=== PATIENT | male | born 1970 ===

== ENCOUNTER 2017-01-07 07:33 | Day surgery (SDC) | payer MEDICARE ==
[2017-01-04 14:29] VITALS: BMI 45.1
[2017-01-07 08:00] LABS: ADD MANUAL DIFF? NO
[2017-01-07 08:05] LABS: BASO # 0.01 K/mm3 (0.0-2.0); BASO % 0.2 % (0.0-3.0); EOS # 0.1 (0.0-0.7); GRAN # 3.27 (1.4-6.5); HEMATOCRIT 30.7 % (42.0-52.0); LYMPH # 1.1 (1.2-3.4); LYMPH % 22.5 % (22.0-35.0); MEAN CORPUSCULAR HEMOGLOBIN 27.5 pg (25.0-35.0); MEAN CORPUSCULAR HGB CONC 31.3 g/dl (31.0-37.0); MEAN PLATELET VOLUME 9.7 fl (7.0-11.0); MONO # 0.5 (0.1-0.6); MONO % 10.3 % (1.0-6.0); PLATELET COUNT 135 10^3/uL (120.0-450.0); RED CELL DISTRIBUTION WIDTH 16.6 % (11.5-14.5)
--- NOTE | 2017-01-07 08:10 | HP ---
REASON FOR ADMISSION: Left and right heart catheterization, reason for cardiac catheterization, obst ructive sleep apnea, pulmonary hypertension, chest pain. BRIEF CLINICAL HISTORY: This is a 46-year-old male, morbidly obese, with past medical history signif icant for hypertension, COPD, obstructive sleep apnea, pulmonary hypertension, RVSP 64 mmHg, referred by Dr. Dino Rowell for right heart catheterization. The patient complained of dyspnea on exerti on. No definite chest pain, but complained of heaviness in the chest and dyspnea on exertion. PAST MEDICAL HISTORY: Significant for obesity, hypertension, COPD, obstructive sleep apnea. PAST SURGICAL HISTORY: Status post appendectomy. SOCIAL HISTORY: Denies any smoking. Denies any history of alcohol abuse. CURRENT MEDICATIONS: The patient is taking at home simvastatin 20 mg daily, Renagel, polyethylene gl ycol, omeprazole, mag oxide, losartan, Lopid, insulin, Lasix, carvedilol, aspirin. Previous workup as follows: The patient had echocardiography on 08/16/[address] Kennedy. The ri ght ventricle was moderately dilated because of mildly hypertrophy. RV systolic function is mildly r educed, mild mitral regurgitation, moderate pulmonary hypertension, mild concentric LVH, LV systolic function mildly impaired, flattening of the septum consistent with RV pressure volume overload, RV sy stolic pressures recorded as 64, and ejection fraction calculated at 45%. REVIEW OF SYSTEMS: As per HPI. PHYSICAL EXAMINATION: VITAL SIGNS: Temperature afebrile, heart rate 80, height of the patient 5 feet 7 inches, weight of t he patient is 282, body mass index 44 kg/m2. HEENT: PERRLA. Extraocular muscles intact. NECK: Supple. No carotid bruits. No thyromegaly. CHEST: Clear to auscultation. HEART: S1, S2 regular. ABDOMEN: Soft. EXTREMITIES: Clubbing and cyanosis negative. Last blood workup in the computer was 11/05/2016, shows WBC 4.5, hemoglobin 10.4, hematocrit 34.1 and platelet count 157. Chemistry shows sodium 140, potassium 6.1, chloride 105, carbon dioxide 30, anio n gap of 11, BUN 656, creatinine 3.7. IMPRESSION: Chronic renal insufficiency, diabetes, hypertension, hyperlipidemia, obstructive sleep a pnea, pulmonary hypertension, elevated pressure right side, mildly decreased left ventricular functio n, ejection fraction 45%, severe dilated right ventricular, pulmonary pressure ____ systolic function , left ventricle mildly impaired, flattening ____ consistent with right ventricular pressure volume o verload, RVSP 64, moderate pulmonary hypertension, moderate tricuspid regurgitation, obstructive slee p apnea, hypertension. RECOMMENDATION: We will do cardiac catheterization. Will use minimal dye, hydrate. Further recomme ndation after the cardiac catheterization. Will do left and right heart catheterization. The patient did not go for a stress test because it may be inconclusive because of obesity and pulmon brenden hypertension and patient complains of shortness of breath, dyspnea on exertion, referred for righ t heart catheterization ____ left heart catheterization also was suggested and will use minimal dye. Thank you, Dr. Rowell, for providing the opportunity in taking care of this patient. Will follow with you. Lisa Minor MD cc:Dino Rowell MD; Adrian Lang MD 305 TT: 01/04/2017 21:46:38 rn
[2017-01-07 08:14] LABS: INR 1.08 (0.93-1.08); PARTIAL THROMBOPLASTIN TIME 27.1 Seconds (23.7-30.8)
[2017-01-07 08:32] VITALS: RESP 18
[2017-01-07 08:47] LABS: POTASSIUM 5.7 mmol/L (3.6-5.0)
[2017-01-07] MEDS ORDERED: Sod Polystyrene Sulf 15 gm/60 ml Oral Susp PO ONE (08:57)
[2017-01-07] MEDS ORDERED: Sodium Bicarbonate (8.4%) 50 Meq Syringe ONE ×2 (09:10→09:24)
[2017-01-07] MEDS ORDERED: Iodixanol 320 MG/ML 200 ML BOTTLE IV ONE (10:20)
[2017-01-07] MEDS ORDERED: Midazolam 2 MG/2 ML VIAL ONE (10:20)
[2017-01-07] MEDS ORDERED: Lidocaine 2% Inj (20ml) ONE (10:20)
[2017-01-07] MEDS ORDERED: Iohexol 350mgl/ml 50 ML ONE (10:21)
[2017-01-07] MEDS ORDERED: SODIUM CHLORIDE 0.45% IV SCH (12:00)
[2017-01-07] MEDS ORDERED: SODIUM BICARBONATE IV SCH (12:00)
[2017-01-07 12:03] VITALS: TEMP 98.1; O2SAT 99
[2017-01-07 15:52] VITALS: PULSE 67
[2017-01-07 16:28] LABS: CALCIUM 7.6 mg/dL (8.4-10.5); POTASSIUM 5.1 mmol/L (3.6-5.0)
[2017-01-07 18:13] VITALS: BP 156/70
--- NOTE | 2017-01-07 18:27 | CARD ---
APPROVED REPORT Procedure(s) performed: Complete Heart Catheterization HISTORY The patient is a 46 year-old male with a history of : previous PCI (The PCI date was ), hypertension , dyslipidemia , cerebrovascular disease, COPD, KARON, CKD Stage III-IV. reffered for RHC b/ c of so much comrbiditied complete Heart Cath done.. INDICATION The indication(s) include : dyspnea. CASE TECHNIQUE The patient was brought electively to the Cardiac Catheterization Laboratory in a fasting state and was prepped and draped in a sterile manner. The right femoral groin was infiltrated with 2% Lidocaine subcutaneous anesthesia. A 6 Fr sheath sheath was inserted into the right femoral artery without difficulty. Coronary angiography was performed using coronary diagnostic catheters. The left coronary system was accessed and visualized with a Diagnostic , JL4.0 , % FR catheter. The right coronary system was accessed and visualized with a Diagnostic , JR 4.0, 5Fr catheter. The left ventricle was accessed and visualized with a Pig tail catheter. Left ventricular/Aortic Valve gradient assessed on pullback. Pre-demployment femoral angiogram was performed . The patient tolerated the procedure well and there were no complications associated with the procedure. Vessel Analysis The patient's coronary anatomy is right dominant. The left main coronary artery is a large size vessel with diffuse calcification noted throughout this vessel and without significant stenosis. There is a 10-20% stenosis in the distal segment. The left main trifurcates to the left anterior descending, circumflex, and ramus. The left anterior descending artery is a medium size vessel with diffuse calcification noted throughout this vessel and with significant stenosis. Patent stent in mid segment There is a 70% stenosis in the mid segment. Distal to stent The first diagonal branch is a small size vessel with diffuse calcification noted throughout this vessel and without significant stenosis. The circumflex artery is a small size vessel with diffuse calcification noted throughout this vessel and without significant stenosis. The ramus intermedius artery is a medium size vessel with diffuse calcification noted throughout this vessel and with significant stenosis. There is a 70% stenosis in the proximal segment. The right coronary artery is a large size vessel with diffuse calcification noted throughout this vessel and without significant stenosis. The right posterior descending artery is a medium size vessel with diffuse calcification noted throughout this vessel and without significant stenosis. Left Ventricle The left ventricle is Mildly enlarged in size with Mildly decreased contractility. Ischemic cardiomyopathy. The left ventricular ejection fraction is estimated to be 45-50%. The left ventricular end diastolic pressure is 20-25 mmHg. There was no gradient across the aortic valve upon pullback. Right Heart Cath Findings The Right Atrial Pressure is 20 mmHg. The Right Ventricular Pressure is 85/20 mmHg. The Pulmonary Artery Pressure is 90/37 mmHg. mean of 50 The Pulmonary Catheter Wedge Pressure is 20-22 mmHg. PVR 3.5 Antoine Wood units. The cardiac output and index were assessed using thermo dilution. The Cardiac Output is 8.04 L/min. The Cardiac index is 3.42 L/min/m2. Conclusion Two Vessel Moderate Diz Mid LAD and Prox Ramus -70% stenoses. Mildly decreased LV Fx. EF-45-50%, EDP-20-25 mmof Hg. RHC:RA-20, RV85/20: PA-90/37 mean of 50;PCW-20-22. CO-8.03, CI-3.42: PVR-35 Antoine unit CKD Stage III-IV Morbid Obesity, T2 DM, HTN, COPD, KARON. only 25 cc Contast used Recommendations Aggressive Medical TherapyCardiac Risk Reduction Program Weight Loss Reduction Program IV HCO3 hydration. Repeat SMA-7 before goes home and in one week. F/u in one week CC; DRS. Lang/ Nadeem/ Yen
== END 2017-01-07 18:15 | disposition home or self-care (01) ==
LOC: CATH 07:33
PROVIDERS: ATTEND Internal Medicine Cardiovascular Disease
DX: I25.10 Atherosclerotic heart disease of native coronary artery without angina pectoris (principal); I25.5 Ischemic cardiomyopathy; I12.9 Hypertensive chronic kidney disease with stage 1 through stage 4 chronic kidney disease, or unspecified chronic kidney disease; N18.4 Chronic kidney disease, stage 4 (severe); E11.22 Type 2 diabetes mellitus with diabetic chronic kidney disease; G47.33 Obstructive sleep apnea (adult) (pediatric); J44.9 Chronic obstructive pulmonary disease, unspecified; E66.01 Morbid (severe) obesity due to excess calories; Z68.42 Body mass index [BMI] 45.0-49.9, adult; I27.2 Other secondary pulmonary hypertension; E78.5 Hyperlipidemia, unspecified; I07.1 Rheumatic tricuspid insufficiency; I67.9 Cerebrovascular disease, unspecified; Z79.4 Long term (current) use of insulin
CPT/HCPCS: 36415; 80048; 80061; 85025; 85610; 85730; 86850; 86900; 93460; 99152; 99153; C1760 ×2; C1769; C1894; C2629; J1644; J1940 ×2; J2250; J3010; J7030 ×2; Q9967

== ENCOUNTER 2017-01-16 12:10 | Inpatient (IN) | payer MEDICARE, OTHER ==
[2017-01-16 12:11] VITALS: BMI 45.1
[2017-01-16 13:12] LABS: ADD MANUAL DIFF? NO
[2017-01-16 13:17] LABS: ARTERIAL BLOOD GAS HCO3 30.6 mmol/L (21-28); BASO # 0.01 K/mm3 (0.0-2.0); BASO % 0.1 % (0.0-3.0); EOS # 0.1 (0.0-0.7); EOS % 1.2 % (1.5-5.0); GRAN # 5.76 (1.4-6.5); GRAN % 84.3 % (50.0-68.0); HEMATOCRIT 29.7 % (42.0-52.0); LYMPH # 0.7 (1.2-3.4); MEAN CELL VOLUME 88.7 fL (80.0-105.0); MEAN CORPUSCULAR HEMOGLOBIN 28.1 pg (25.0-35.0); MEAN CORPUSCULAR HGB CONC 31.6 g/dl (31.0-37.0); MEAN PLATELET VOLUME 10.1 fl (7.0-11.0); MONO # 0.3 (0.1-0.6); MONO % 4.4 % (1.0-6.0); PLATELET COUNT 160 10^3/uL (120.0-450.0); RED CELL DISTRIBUTION WIDTH 15.9 % (11.5-14.5); WHITE BLOOD COUNT 6.8 10^3/ul (4.5-11.0)
[2017-01-16 13:24] LABS: ARTERIAL BLOOD GAS PH 7.19 (7.35-7.45)
--- NOTE | 2017-01-16 13:25 | ED PDOC ---
Arrival/HPI - History of Present Illness Time/Duration: Prior to Arrival, 4-6 hours (acute worsening), > month (chronic) Symptom Course: Worsening Severity Level: Moderate Activities at Onset: Rest, Light - General Chief Complaint: Shortness Of Breath Time Seen by Provider: 01/16/17 12:59 - History of Present Illness Narrative History of Present Illness (Text): 01/16/17 13:19 This is a 46 year old male with a PMH significant for DM, HTN, CKD, CAD, KARON presenting for SOB x 1 year that became acutely worse today. The patient states that he has noticed SOB for thepast year, but this morning he found it hard to carry out ADLs 2/2 to the shortness of breath. The patient has a known history of CAD (s/p cardiac cath 01/07/[address] Minor). The patient reports no cough. He is able to only take a few steps before becoming short of breath. The patient reports abdominal pain that is consistent with his baseline as well. The patient denies fever, chills, chest pain, cough, sputum, wheezing, N/ V/D/C, changes in bowel/bladder, and extremity paresthesias. PMH: DM, HTN, CKD, CAD, KARON Surg: Open Appendectomy Allergy: NKDA Social: Denies tobacco/EtOH/illicit drugs PMD: Dr. Lang Natural Developer: Dr. Rowell ([facility]) Past Medical History - Provider Review Nursing Documentation Reviewed: Yes - Travel History Have you recently traveled outside [place] w/in the past 3 mons?: No - Infectious Disease Hx of Infectious Diseases: None - Tetanus Immunization Tetanus Immunization: Unknown - Cardiac Hx Hypertension: Yes Hx Pacemaker: No - Pulmonary Hx Respiratory Disorders: Yes Hx Sleep Apnea: Yes Other/Comment: Fluid in lungs - Neurological Hx Paralysis: No - HEENT Hx HEENT Disorder: Yes (USES GLASSES) - Renal Hx Renal Disorder: Yes Hx Renal Failure: Yes - Endocrine/Metabolic Hx Endocrine Disorders: Yes Hx Diabetes Mellitus Type 1: Yes - Hematological/Oncological Hx Blood Transfusions: No Hx Blood Transfusion Reaction: No - Integumentary Hx Dermatological Disorder: No - Musculoskeletal/Rheumatological Hx Musculoskeletal Disorders: No - Gastrointestinal Hx Gastrointestinal Disorders: Yes Hx Gastroesophageal Reflux: Yes - Genitourinary/Gynecological Hx Genitourinary Disorders: No - Psychiatric Hx Emotional Abuse: No Hx Physical Abuse: No Hx Substance Use: No - Surgical History Hx Appendectomy: Yes Hx Coronary Stent: Yes - Anesthesia Hx Anesthesia Reactions: No Hx Malignant Hyperthermia: No - Suicidal Assessment Feels Threatened In Home Enviroment: No - Patient History Narrative Patient History: This is a 46 year old male with a PMH significant for DM, HTN, CKD, CAD, KARON ( Cristóbal Chan) Family/Social History - Physician Review Nursing Documentation Reviewed: Yes Family/Social History: No Known Family HX Smoking Status: Never Smoked Hx Alcohol Use: No Hx Substance Use: No Allergies/Home Meds Allergies/Adverse Reactions: Allergies No Known Allergies Allergy (Verified 01/16/17 12:36) Home Medications: Home Meds Medication Instructions Recorded Confirmed Carvedilol [Coreg] 12.5 mg PO BID 08/14/16 01/16/17 Ferrous Sulfate [Iron] 325 mg PO QAM 08/14/16 01/16/17 Omeprazole 40 mg PO QAM 08/14/16 01/16/17 Lopid 600 mg PO BID 10/02/16 01/07/17 Losartan [Cozaar] 25 mg PO QAM 10/02/16 01/16/17 Simvastatin [Zocor] 20 mg PO QPM 10/02/16 01/07/17 Aspirin [Ecotrin] 81 mg PO QAM 11/05/16 01/07/17 Calcitriol [Rocaltrol] 0.25 mcg PO QAM 11/05/16 01/16/17 Insulin Detemir [Levemir] 43 units SC HS PRN 11/05/16 01/07/17 Magnesium Oxide [Mag-Ox] 400 mg PO QAM 11/05/16 01/16/17 Polyethylene Glycol 3350 [Miralax] 17 gm PO BID PRN 01/04/17 01/16/17 ARIPiprazole [Abilify] 5 mg PO DAILY 01/16/17 01/16/17 hydrALAZINE [hydralazine 25 mg PO TID 01/16/17 01/16/17 Hydrochloride] Review of Systems - Physician Review All systems were reviewed & negative as marked: Yes - Review of Systems Constitutional: absent: Fatigue, Fevers Eyes: absent: Vision Changes, Photophobia ENT: absent: Hearing Changes, Tinnitus Respiratory: SOB. absent: Cough, Sputum, Wheezing Cardiovascular: Edema. absent: Chest Pain, Palpitations Gastrointestinal: Abdominal Pain. absent: Constipation, Diarrhea, Nausea, Vomiting Genitourinary Male: absent: Dysuria, Frequency Musculoskeletal: absent: Arthralgias, Back Pain Skin: absent: Rash, Pruritis Neurological: absent: Headache, Dizziness Endocrine: absent: Diaphoresis, Polyuria Hemo/Lymphatic: absent: Adenopathy Psychiatric: absent: Anxiety Physical Exam Vital Signs Reviewed: Yes Temperature: Afebrile Blood Pressure: Normal Pulse: Regular Respiratory Rate: Tachypneic Appearance: Positive for: Ill-Appearing, Uncomfortable Pain Distress: None Mental Status: Positive for: Alert and Oriented X 3 - Systems Exam Head: Present: Atraumatic, Normocephalic Pupils: Present: PERRL Extroacular Muscles: Present: EOMI Conjunctiva: Present: Normal Mouth: Present: Moist Mucous Membranes. No: Drooling Nose (External): Present: Atraumatic. No: Abrasion Neck: Present: Normal Range of Motion. No: Meningeal Signs, JVD Respiratory/Chest: Present: Respiratory Distress, Decreased Breath Sounds ( Right lung mid a low lung hopkins), Rales (left lung base (end inspiratory)), Tachypneic. No: Clear to Auscultation, Good Air Exchange, Accessory Muscle Use , Rhonchi Cardiovascular: Present: Regular Rate and Rhythm, Normal S1, S2. No: Murmurs Abdomen: Present: Tenderness (midline tenderness), Distention, Normal Bowel Sounds, Peritoneal Signs, Hernias (midline ventral hernia), Scars (Midline s/p open appendectomy), Other (gavidly obese). No: Rebound, Guarding, McBurney's Point Tender, Rovsing's Sign Present Back: Present: Normal Inspection. No: Decubitus Ulcer Upper Extremity: Present: Normal Inspection, Edema (trace edmea in forearms). No: Cyanosis Lower Extremity: Present: Normal Inspection, Edema (2+ pitting below knee, 1+ above knee in thigh ), NORMAL PULSES, Normal ROM, Neurovascularly Intact. No: CALF TENDERNESS, Cyanosis, Jessica's Sign, Tenderness, Swelling, Erythema, Deformity, Temperature Abnormalties Neurological: Present: GCS=15, CN II-XII Intact, Speech Normal Skin: Present: Warm, Dry, Normal Color. No: Rashes Psychiatric: Present: Alert, Oriented x 3 Vital Signs Temp Pulse Resp BP Pulse Ox 01/16/17 18:38 60 18 133/82 100 01/16/17 16:30 66 18 142/85 98 01/16/17 15:00 69 18 153/93 H 98 01/16/17 13:25 18 167/66 H 98 01/16/17 12:31 98.2 F 71 18 144/78 100 Medical Decision Making - Lab Interpretations I have reviewed the lab results: Yes Interpretation: Abnormal lab values - RAD Interpretation Community Music Therapist: ED Physician, Radiologist - EKG Interpretation Interpreted by ED Physician: Yes Type: 12 lead EKG ED Course and Treatment: 01/16/17 13:29 Impression: This is a 46 year old male with a PMH significant for DM, HTN, CKD, CAD, KARON presenting for SOB x 1 year that became acutely worse today. The patient appears clinical stable although tachypneic and visibly short of breath. Differential: CHF Exacerbation COPD Pneumonia Plan: Septic Workup Labs CXR EKG Blood Cultures Urine Culture Lasix 40mg IV Rocephin 1g x 1 Azithromycin 500mg x 1 ABG Bi-PAP Prior Visits: 10/02/16- Edema 09/09/16- CHF Exacerbation 08/14/16- CHF 02/07/16- Depression Progress Notes: Patient seen and examined at the bedside. Patient tachypneic. Patient sating well on 4L nasal cannula. ABG revealed retention of CO2. Patient tolerating Bi -PAP well. Patient has elevated BNP on lab examination. The patient has a large right sided effusion/infiltrate. The patient was empirically started on rocephin and azithromycin. 01/16/17 18:32 Dr. Ryan called. Case discussed in detail over the phone. Dr. Ryan accepted admission to remote telemetry as he is covering for Dr. Lang. The patient was informed of the admission plan and is agreeable with admission at this time. (Cristóbal Chan) Seen and examined with resident. 46 y/o M p/w shortness of breath. Decreased breath sounds diffusely especially R lung base. (Arvind Colbert) - Lab Interpretations Lab Results: 01/16/17 13:00 01/16/17 13:00 Lab Results 01/16/17 14:13: pCO2 62 H, pO2 95.0, HCO3 27.8, ABG pH 7.26 L, ABG Total CO2 29.7 H, ABG O2 Saturation 98.1 H, ABG O2 Content 12.4 L, ABG Base Excess 0.1, ABG Hemoglobin 9.1 L, ABG Carboxyhemoglobin 1.9 H, POC ABG HHb (Measured) 1.9, ABG Methemoglobin 0.2, ABG O2 Capacity 12.6 L, Hgb O2 Saturation 96.0, FiO2 32.0 01/16/17 13:20: Urine Color Yellow, Urine Appearance Sl cloudy, Urine pH 6.5, Ur Specific Laurel 1.020, Urine Protein >=300 H, Urine Glucose (UA) 250 H, Urine Ketones Negative, Urine Blood Small H, Urine Nitrate Negative, Urine Bilirubin Negative, Urine Urobilinogen 0.2, Ur Leukocyte Esterase Negative, Urine RBC 1 - 3, Urine WBC 1 - 3, Ur Epithelial Cells 3 - 4, Urine Bacteria Trace 01/16/17 13:00: WBC 6.8 D, RBC 3.35 L, Hgb 9.4 L, Hct 29.7 L, MCV 88.7, MCH 28.1, MCHC 31.6, RDW 15.9 H, Plt Count 160, MPV 10.1, Gran % 84.3 H, Lymph % ( Auto) 10.0 L, Spencer % (Auto) 4.4, Eos % (Auto) 1.2 L, Baso % (Auto) 0.1, Gran # 5.76, Lymph # 0.7 L, Spencer # 0.3, Eos # 0.1, Baso # 0.01, PT 11.7, INR 1.08, APTT 25.3, pCO2 80 H*, pO2 49.0 L, HCO3 30.6 H, ABG pH 7.19 L*, ABG Total CO2 33.1 H, ABG O2 Saturation 84.7 L, ABG Base Excess 0.1, ABG Potassium 5.1, Glucose 149 H, Lactate 1.2, FiO2 21.0, Sodium 139.0, Potassium 5.3 H, Chloride 107.0, Carbon Dioxide 30, Anion Gap 11, BUN 44 H, Creatinine 4.0 H, Est GFR ( Amer) 20, Est GFR (Non-Af Amer) 16, Random Glucose 132 H, Calcium 8.0 L , Phosphorus 4.6 H, Magnesium 1.8, Total Bilirubin 0.5, AST 25, ALT 26, Alkaline Phosphatase 75, Troponin I 0.02 D, NT-Pro-B Natriuret Pep 75674 H, Total Protein 6.1, Albumin 3.2, Globulin 2.9, Albumin/Globulin Ratio 1.1, Arterial Blood Potassium 5.1 - RAD Interpretation Narrative RAD Interpretations (Text): 01/16/17 16:43 FINDINGS: LUNGS: There is a diffuse infiltrate and vascular congestion. Findings are most consistent with pulmonary edema. There is elevation of the right hemidiaphragm PLEURA: No significant pleural effusion identified, no pneumothorax apparent. CARDIOVASCULAR: Mild cardiomegaly OSSEOUS STRUCTURES: No significant abnormalities. VISUALIZED UPPER ABDOMEN: Normal. OTHER FINDINGS: None. IMPRESSION: There is a diffuse infiltrate and vascular congestion. Findings are most consistent with pulmonary edema. There is elevation of the right hemidiaphragm. (Cristóbal Chan) Radiology Orders: 01/16/17 13:03 CHEST PORTABLE [RAD] Stat - EKG Interpretation EKG Interpretation (Text): 01/16/17 16:45 NSR Non-specific t wave changes regular rate (Cristóbal Chan) - Medication Orders Current Medication Orders: Discontinued Medications Furosemide (Lasix) 40 mg IVP STAT STA Stop: 01/16/17 13:07 Last Admin: 01/16/17 13:25 Dose: 40 MG MAR Blood Pressure Document 01/16/17 13:25 [facility] (Rec: 01/16/17 13:25 [facility] [id number]) Blood Pressure Blood Pressure (100/60-150/90) 167/66 IVP Administration Document 01/16/17 13:25 [facility] (Rec: 01/16/17 13:25 [facility] [id number]) Charges for Administration # of IVP Administrations 1 Azithromycin (Zithromax 500mg In Ns) 250 mls @ 167 mls/hr IVPB STAT STA PRN Reason: Protocol Stop: 01/16/17 17:47 Last Admin: 01/16/17 17:04 Dose: 167 MLS/HR eMAR Start Stop Document 01/16/17 17:04 JOL (Rec: 01/16/17 17:04 JOL [email or web address]) Intravenous Solution Start Date 01/16/17 Start Time 17:04 End Date 01/16/17 End time 18:34 Total Infusion Time 90 Ceftriaxone Sodium (Rocephin 1 Gram Ivpb) 100 mls @ 200 mls/hr IVPB STAT STA PRN Reason: Protocol Stop: 01/16/17 16:47 Last Admin: 01/16/17 16:38 Dose: 200 MLS/HR eMAR Start Stop Document 01/16/17 16:38 PATRICK (Rec: 01/16/17 16:38 PATRICK [email or web address]) Intravenous Solution Start Date 01/16/17 Start Time 16:38 End Date 01/16/17 End time 17:08 Total Infusion Time 30 Disposition/Present on Arrival - Present on Arrival Any Indicators Present on Arrival: No History of DVT/PE: No History of Uncontrolled Diabetes: No Urinary Catheter: No History of Decub. Ulcer: No History Surgical Site Infection Following: None - Disposition Have Diagnosis and Disposition been Completed?: Yes Disposition Time: 18:00 Patient Plan: Admission - Disposition Diagnosis: CHF exacerbation, Shortness of breath Patient Problems: Current Active Problems Problem Status Diagnosed CHF exacerbation Acute Congestive heart failure Acute Diabetic nephropathy Acute Shortness of breath Acute Condition: FAIR
[2017-01-16 13:27] LABS: INR 1.08 (0.93-1.08); PARTIAL THROMBOPLASTIN TIME 25.3 Seconds (23.7-30.8)
[2017-01-16 13:28] LABS: ALB/GLOB RATIO 1.1 (1.1-1.8); BILIRUBIN,TOTAL 0.5 mg/dL (0.2-1.3); MAGNESIUM 1.8 mg/dL (1.7-2.2); PHOSPHOROUS 4.6 mg/dL (2.5-4.5); POTASSIUM 5.3 mmol/L (3.6-5.0); TOTAL PROTEIN 6.1 g/dL (5.8-8.3)
[2017-01-16 13:39] LABS: TROPONIN I 0.02 ng/mL
--- NOTE | 2017-01-16 14:01 | RAD ---
HISTORY: Sepsis Patient COMPARISON: 11/23/2016 FINDINGS: LUNGS: There is a diffuse infiltrate and vascular congestion. Findings are most consistent with pulmonary edema. There is elevation of the right hemidiaphragm PLEURA: No significant pleural effusion identified, no pneumothorax apparent. CARDIOVASCULAR: Mild cardiomegaly OSSEOUS STRUCTURES: No significant abnormalities. VISUALIZED UPPER ABDOMEN: Normal. OTHER FINDINGS: None. IMPRESSION: There is a diffuse infiltrate and vascular congestion. Findings are most consistent with pulmonary edema. There is elevation of the right hemidiaphragm
[2017-01-16 14:16] LABS: ARTERIAL BLOOD GAS HCO3 27.8 mmol/L (21-28); ARTERIAL BLOOD GAS O2 CAPACITY 12.6 mL/dl (16-24); ARTERIAL BLOOD GAS O2 CONTENT 12.4 ML/dl (15-23); ARTERIAL BLOOD GAS PH 7.26 (7.35-7.45); CARBOXYHEMOGLOBIN 1.9 % (0.5-1.5); HHB 1.9 % (0-5); METHEMOGLOBIN 0.2 % (0.0-3.0)
[2017-01-16 15:01] LABS: PH,URINE 6.5 (4.7-8.0); URINE APPEARANCE SL CLOUDY (CLEAR); URINE BILIRUBIN NEGATIVE (NEGATIVE); URINE BLOOD SMALL (NEGATIVE); URINE COLOR YELLOW (YELLOW); URINE GLUCOSE (UA) 250 mg/dL (NEGATIVE); URINE KETONE NEGATIVE (NEGATIVE); URINE LEUKOCYTE ESTERASE NEGATIVE Leu/uL (NEGATIVE); URINE PROTEIN >=300 mg/dL (<30 mg/dL); URINE UROBILINOGEN 0.2 E.U./dL (<1 E.U./dL)
[2017-01-16 15:14] LABS: URINE BACTERIA TRACE (NEG)
[2017-01-16] MEDS ORDERED: cefTRIAXone 1 gm 100 ML IVPB STA (16:18)
[2017-01-16] MEDS ORDERED: Azithromycin 500MG/NS 250ml 250 ML IVPB STA (16:18)
--- NOTE | 2017-01-16 17:24 | CARD ---
APPROVED REPORT EKG Measurement Heart [id number] <Conclusion> Normal sinus rhythm Low voltage QRS Nonspecific T wave abnormality Abnormal ECG
[2017-01-16] MEDS ORDERED: Sod Polystyrene Sulf 15 gm/60 ml Oral Susp PO STA (19:15)
[2017-01-16] MEDS ORDERED: POLYETHYLENE GLYCOL 3350 17 GM/Dose PACKET PO PRN (19:18)
--- NOTE | 2017-01-16 20:27 | CP.PCM.HP ---
History of Present Illness - History of Present Illness History of Present Illness: PGY-1 H&P 46 yo male with PMH of DM, HTN, CKD, CAD, KARON presented with progressively worsening SOB. Patient states that the SOB started about 1 year ago but today he was acutely worse. He states that he felt very weak and was no able to complete his activities of daily living. Patient recently had a cardiac cath on 01/07/17. He states that he is only able to take a few steps before he becomes SOB. He reports dry cough with occasionally has dry heaves. Patient states that takes over the counter medication for constipation and has alternating constipation with diarrhea. He has pain associated with abdominal herniated, the pain is consistent with baseline. He denies fever, chills, chest pain, n/v, urinary symptoms. PMH; DM, HTN, CKD, CAD, KARON PSH; cardiac cath with 2 stents, cataract, burst appendectomy Family hx; mother heart disease, father prostate ca social hx; denies alcohol, smoking, or illicit drug use allergy; NKDA Present on Admission - Present on Admission Any Indicators Present on Admission: No Review of Systems - Constitutional Constitutional: Fatigue. absent: Chills, Fever, Weight Gain, Weight Loss - EENT Eyes: absent: Blurred Vision Nose/Mouth/Throat: absent: Nasal Congestion, Sore Throat - Cardiovascular Cardiovascular: Dyspnea, Edema. absent: Chest Pain - Respiratory Respiratory: Cough (dry ), Dyspnea. absent: Wheezing - Gastrointestinal Gastrointestinal: Abdominal Pain (abd hernia), Constipation, Diarrhea. absent: Nausea, Vomiting - Genitourinary Genitourinary: absent: Change in Urinary Stream, Dysuria - Musculoskeletal Musculoskeletal: Muscle Weakness. absent: Joint Swelling, Numbness, Tingling - Integumentary Integumentary: absent: Rash, Sores - Neurological Neurological: Weakness. absent: Dizziness, Numbness, Headaches, Tingling - Hematologic/Lymphatic Hematologic: absent: Easy Bleeding, Easy Bruising Past Patient History - Infectious Disease Hx of Infectious Diseases: None - Tetanus Immunizations Tetanus Immunization: Unknown - Past Medical History & Family History Past Medical History?: Yes - Past Social History Smoking Status: Never Smoked Alcohol: None Drugs: Denies - CARDIAC Hx Hypertension: Yes Hx Pacemaker: No - PULMONARY Hx Respiratory Disorders: Yes Hx Sleep Apnea: Yes Other/Comment: Fluid in lungs - NEUROLOGICAL Hx Paralysis: No - HEENT Hx HEENT Problems: Yes (USES GLASSES) - RENAL Hx Chronic Kidney Disease: Yes Hx Renal Failure: Yes - ENDOCRINE/METABOLIC Hx Endocrine Disorders: Yes Hx Diabetes Mellitus Type 1: Yes - HEMATOLOGICAL/ONCOLOGICAL Hx Blood Transfusions: No Hx Blood Transfusion Reaction: No - INTEGUMENTARY Hx Dermatological Problems: No - MUSCULOSKELETAL/RHEUMATOLOGICAL Hx Musculoskeletal Disorders: No - GASTROINTESTINAL Hx Gastrointestinal Disorders: Yes Hx Gastroesophageal Reflux: Yes - GENITOURINARY/GYNECOLOGICAL Hx Genitourinary Disorders: No - PSYCHIATRIC Hx Emotional Abuse: No Hx Physical Abuse: No Hx Substance Use: No - SURGICAL HISTORY Hx Appendectomy: Yes Hx Coronary Stent: Yes - ANESTHESIA Hx Anesthesia Reactions: No Hx Malignant Hyperthermia: No Meds Allergies/Adverse Reactions: Allergies Allergy/AdvReac Type Severity Reaction Status Date / Time No Known Allergies Allergy Verified 01/16/17 12:36 Physical Exam - Constitutional Appears: No Acute Distress - Head Exam Head Exam: ATRAUMATIC, NORMOCEPHALIC - Eye Exam Eye Exam: EOMI, Normal appearance - ENT Exam ENT Exam: Mucous Membranes Moist - Respiratory Exam Respiratory Exam: Decreased Breath Sounds, Rhonchi, Respiratory Distress. absent: Wheezes, NORMAL BREATHING PATTERN - Cardiovascular Exam Cardiovascular Exam: REGULAR RHYTHM. absent: Tachycardia, Systolic Murmur - GI/Abdominal Exam GI & Abdominal Exam: Distended, Hernia, Normal Bowel Sounds, Soft. absent: Firm , Guarding, Tenderness - Extremities Exam Additional comments: + pitting edema - Neurological Exam Neurological exam: Alert, Oriented x3 - Skin Skin Exam: Dry, Intact, Normal Color, Warm Results - Vital Signs Recent Vital Signs: Last Vital Signs Temp 98.2 F 01/16/17 12:31 Pulse 60 01/16/17 18:38 Resp 18 01/16/17 18:38 BP 133/82 01/16/17 18:38 Pulse Ox 100 01/16/17 18:38 - Labs Result Diagrams: 01/16/17 13:00 01/16/17 13:00 Assessment & Plan - Assessment and Plan (Free Text) Assessment: 46 yo male with PMH of DM, HTN, CKD, CAD, KARON presented with progressively worsening SOB most likely due to CHF with possible PNE. CXR showed diffuse infiltrates and vascular congestion, pulm edema. Plan: 1. dyspnea - chf vs pne - cont abx ceftriaxone and azithromycin - lasix 40 IV bid - will cont bipap overnight - O2 as needed - echo - cardio consult, Dr. Minor - pulm consult, Dr. Tom 2. hyperkalemia - kayexalate - repeat BMP in AM 3. CKD - appears be baseline - conulted nephro - cont to monitor - cont home med calcitriol 4.HTN - cont home meds coreg, hydralazine, losartan 5. DM - ISSS- low - fingersticks ACHS 6. anemia - cont home med feosol ppx - GI ppx protonix - DVT ppx heparin
[2017-01-16] MEDS: Insulin Reg-LOW-Coverage SC SCH (21:32)
[2017-01-17 07:01] LABS: ADD MANUAL DIFF? NO
[2017-01-17 07:14] LABS: BASO # 0.01 K/mm3 (0.0-2.0); BASO % 0.2 % (0.0-3.0); EOS # 0.1 (0.0-0.7); EOS % 1.7 % (1.5-5.0); GRAN # 2.98 (1.4-6.5); GRAN % 63.7 % (50.0-68.0); HEMATOCRIT 29.6 % (42.0-52.0); LYMPH # 1.2 (1.2-3.4); LYMPH % 24.8 % (22.0-35.0); MEAN CORPUSCULAR HEMOGLOBIN 27.7 pg (25.0-35.0); MEAN CORPUSCULAR HGB CONC 30.7 g/dl (31.0-37.0); MEAN PLATELET VOLUME 10.7 fl (7.0-11.0); MONO # 0.5 (0.1-0.6); MONO % 9.6 % (1.0-6.0); PLATELET COUNT 156 10^3/uL (120.0-450.0); RED CELL DISTRIBUTION WIDTH 16.1 % (11.5-14.5); WHITE BLOOD COUNT 4.7 10^3/ul (4.5-11.0)
[2017-01-17 07:24] LABS: ALB/GLOB RATIO 1.1 (1.1-1.8); BILIRUBIN,TOTAL 0.3 mg/dL (0.2-1.3); CALCIUM 7.6 mg/dL (8.4-10.5); TOTAL PROTEIN 5.8 g/dL (5.8-8.3)
--- NOTE | 2017-01-17 08:32 | CON ---
DATE: 01/17/2017 REASON FOR CONSULTATION: Shortness of breath. REFERRING PHYSICIAN: Dr. Garcia. HISTORY OF PRESENT ILLNESS: The patient is a 46-year-old male with past medical history significant for recurrent congestive heart failure, dilated cardiomyopathy, coronary artery disease, status post multiple cardiac stents, diabetes mellitus, chronic kidney disease, obstructive sleep apnea, who presents to [facility] with increasing shortness of breath at rest and dyspnea on exertion for 1 day. There is no history of cough or sputum production. There is no history of chest pain, coughing up of blood, or chest pain -- made worse with deep respirations. There is no history of temperatures , chills, or infectious exposure. There is no history of night sweats, weight loss, or appetite change prior to the above events. No history of leg or calf pains. No history of syncope or diaphoresis. No history of recent travel or trauma. REVIEW OF SYSTEMS: No history of nausea, vomiting, or diarrhea. No acute urinary symptoms. No new neurological or musculoskeletal complaints. Rest of the review of systems is negative. ALLERGIES: No known allergies. SOCIAL HISTORY: Positive for tobacco, negative for alcohol. FAMILY HISTORY: No inheritable diseases. HOME MEDICATIONS: Include hydralazine, MiraLax, Abilify, Lasix, Cozaar, iron, Coreg, Zocor, Renagel, Levemir, Ecotrin. PHYSICAL EXAMINATION: GENERAL: The patient appears comfortable at rest. He is not short of breath. VITALS: Temperature is 98, pulse 64, respirations 18/20, blood pressure 163/ 86. Oxygen saturation on BiPAP is 100%. HEENT: Normocephalic, atraumatic. Positive JVD. CARDIOVASCULAR: Positive S1, S2. Positive S3 gallop. LUNGS: Crackles at the bases. No rhonchi. No wheezing. EXTREMITIES: Positive for edema. No cyanosis, no clubbing. Calves are nontender to palpation. GASTROINTESTINAL: Abdomen is soft, nontender, nondistended. Bowel sounds are positive. SKIN: No acute rash. NEUROLOGIC EXAMINATION: Limited at the present time. PERTINENT LABORATORY DATA: Chest x-ray was done and reviewed. Pulmonary edema is noted. Arterial blood gas was done on nasal cannula(discussed with the nurse ). Results are: pH 7.26, pCO2 of 62, pO2 of 95. CBC: White count 6.8, hemoglobin 9.4, hematocrit 29.7, platelets of 160. Complete Metabolic Profile: Potassium 5.3, BUN 44, creatinine 4.0, glucose 132, calcium 8.0, phosphorus 4.6, B-type natriuretic peptide 12,200. Rest of the metabolic profile is within normal limits. IMPRESSION: 1. Recurrent congestive heart failure. 2. Dilated cardiomyopathy. 3. Coronary artery disease. 4. Respiratory failure. 5. Obstructive sleep apnea. 6. Chronic kidney disease. PLAN: I did discuss the case with the night nurse at length. I have also discussed the case with the patient at length, and reviewed the chart at length. The patient presents to [facility] with a 1-day history of worsening shortness of breath at rest and dyspnea on exertion. He offers no other pulmonary symptoms. I did review the x-ray as above. The x-ray is consistent with acute pulmonary edema. I have also reviewed the arterial blood gas. A mild respiratory acidosis with quite adequate oxygenation is noted. Again, I did discuss the case and plan with the nurse at length. As a first step, I will try changing the BiPAP to at night and on a p.r.n. basis. I will place the patient on 3 L nasal cannula oxygen this morning. I will obtain an arterial blood gas in 1 hour -- I will be called with those results. The patient does use CPAP at night at home. I have requested that one of his family members bring his CPAP machine in from home. He agrees. Cardiology evaluation with Dr. Minor has been ordered. The patient has been placed on Lasix /afterload reduction. The patient has also been placed on antibiotic therapy. There are no temperatures by history. There is no leukocytosis. The patient is not short of breath at the time of my examination, and feels better this morning. He has clinically improved. Additional pulmonary intervention will be based on the above results, as well as clinical status of the patient. I will discuss the above with Dr. Garcia later this morning. Thank you very much for this pulmonary consultation. Kem Tom MD cc: [id number] TT: 01/17/2017 08:31:28 Confirmation # [id number] Dictation # [id number] jn VINNIE
--- NOTE | 2017-01-17 08:59 | CP.PCM.PN ---
<Kailee Mcgregor - Last Filed: 01/17/17 13:27> Subjective - Date & Time of Evaluation Date of Evaluation: 01/17/17 Time of Evaluation: 08:56 - Subjective Subjective: PGY-1 Medicine progress note Patient seen and examined at bedside. Patient is on 3L nasal cannula. He is short of breath when speaking. He states that his breathing has improved from yesterday. Nurse reports no acute events overnight. Patient denies headache, fever, chills, chest pain, n/v/d/c. He conts to have abd pain 2/2 hernia that is consistent with baseline. Objective - Vital Signs/Intake and Output Vital Signs (last 24 hours): Temp Pulse Resp BP Pulse Ox 98.0 F 61 20 163/86 H 100 01/16/17 23:21 01/17/17 06:00 01/16/17 23:21 01/16/17 23:21 01/16/17 18:38 Intake and Output: 01/17/17 01/17/17 06:59 18:59 Intake Total 420 120 Balance 420 120 - Medications Medications: Current Medications Aripiprazole (Abilify) 5 mg PO DAILY DMITRIY Calcitriol (Rocaltrol) 0.25 mcg PO QAM DMITRIY Carvedilol (Coreg) 12.5 mg PO BID DMITRIY Ferrous Sulfate (Feosol) 324 mg PO QAM DMITRIY Furosemide (Lasix) 40 mg IVP Q12 DMITRIY Last Admin: 01/16/17 21:31 Dose: 40 mg Heparin Sodium (Porcine) (Heparin) 5,000 units SC Q12 DMITRIY PRN Reason: Protocol Last Admin: 01/16/17 21:31 Dose: 5,000 units Hydralazine HCl (Apresoline) 25 mg PO TID DMITRIY Azithromycin (Zithromax 500mg In Ns) 250 mls @ 167 mls/hr IVPB DAILY DMITRIY PRN Reason: Protocol Ceftriaxone Sodium (Rocephin 1 Gram Ivpb) 100 mls @ 100 mls/hr IVPB DAILY DMITRIY PRN Reason: Protocol Insulin Human Regular (Humulin R Low) 0 units SC ACHS DMITRIY PRN Reason: Protocol Last Admin: 01/16/17 21:32 Dose: Not Given Losartan Potassium (Cozaar) 25 mg PO QAM DMITRIY Magnesium Oxide (Mag-Ox) 400 mg PO QAM DMITRIY Pantoprazole Sodium (Protonix Ec Tab) 40 mg PO QAM DMITRIY Polyethylene Glycol (Miralax) 17 gm PO BID PRN PRN Reason: Constipation - Labs Labs: 01/17/17 06:30 01/17/17 06:30 PT 11.7 Seconds (9.9-11.8) 01/16/17 13:00 INR 1.08 (0.93-1.08) 01/16/17 13:00 APTT 25.3 Seconds (23.7-30.8) 01/16/17 13:00 - Constitutional Appears: No Acute Distress - Head Exam Head Exam: ATRAUMATIC, NORMOCEPHALIC - Eye Exam Eye Exam: EOMI, Normal appearance - ENT Exam ENT Exam: Mucous Membranes Dry - Respiratory Exam Respiratory Exam: Decreased Breath Sounds, Rhonchi, Respiratory Distress (mild) - Cardiovascular Exam Cardiovascular Exam: REGULAR RHYTHM. absent: Tachycardia, JVD, Murmur - GI/Abdominal Exam GI & Abdominal Exam: Distended, Soft, Normal Bowel Sounds. absent: Firm, Guarding, Tenderness - Extremities Exam Extremities Exam: absent: Pedal Edema - Neurological Exam Neurological Exam: Alert, Awake, Oriented x3 - Skin Skin Exam: Dry, Intact, Normal Color, Warm Assessment and Plan - Assessment and Plan (Free Text) Assessment: 46 yo male with PMH of DM, HTN, CKD, CAD, KARON presented with progressively worsening SOB most likely due to CHF with possible PNE and respiratory acidosis. CXR showed diffuse infiltrates and vascular congestion, pulm edema. Patient was on bipap overnight. Plan: 1. dyspnea - 2/2 chf, possible PNA - CXR showed diffuse infiltrates and vascular congestion, pulm edema. - cont abx ceftriaxone and azithromycin - increase lasix to 40 IV q8 - valdes to moniotr strict I&O - will cont bipap at night - patient states he will have family bring his cpap from home - patient on O2 3L while not on bipap - echo ordered - cardio consult, Dr. Minor - pulm consult, Dr. Tom 2. respiratory acidosis - on admission ABG showed respiratory acidosis - he was placed on bipap in the ED, repeat ABG was improved - ABG this morning shows worsening of respiratory acidosis - placed back on bipap, - will transfer to tele floor - repeat ABG in AM 3. CKD - appears be baseline - may need dialysis to remove fluid - consulted nephro - cont to monitor - cont home med calcitriol 4. hyperkalemia - kayexalate 1 dose yesterday - repeat improved to 5 - cont to monitor - nephro consulted 5.HTN - cont home meds coreg, hydralazine, losartan 6. DM - ISSS- low - finger sticks ACHS 7. anemia - cont home med feosol - appears at baseline - cont to monitor ppx - GI ppx protonix - DVT ppx heparin <Adrian Lang - Last Filed: 02/22/17 14:10> Objective - Vital Signs/Intake and Output Vital Signs (last 24 hours): Temp Pulse Resp BP Pulse Ox 98.0 F 59 L 18 140/70 97 01/30/17 08:00 01/30/17 08:00 01/30/17 08:00 01/30/17 09:31 01/30/17 08:00 - Labs Labs: 01/30/17 11:20 01/30/17 11:20 PT 11.7 Seconds (9.9-11.8) 01/16/17 13:00 INR 1.08 (0.93-1.08) 01/16/17 13:00 APTT 25.3 Seconds (23.7-30.8) 01/16/17 13:00 Attending/Attestation - Attestation I have personally seen and examined this patient.: Yes I have fully participated in the care of the patient.: Yes I have reviewed all pertinent clinical information, including history, physical exam and plan: Yes Notes (Text): 02/22/17 14:10 Medical record note made by the resident after discussion with my direction and input after the patient was personally seen and examined by me. I have reviewed the chart and agree that the record accurately reflects by personal performance of the history, physical exam, data review, and medical decision-making, in the course for the patient. I have also personally directed the plan of care.
[2017-01-17 09:02] LABS: ARTERIAL BLOOD GAS HCO3 29.9 mmol/L (21-28); ARTERIAL BLOOD GAS O2 CAPACITY 12.7 mL/dl (16-24); ARTERIAL BLOOD GAS O2 CONTENT 12.4 ML/dl (15-23); ARTERIAL BLOOD HGB O2 SAT 94.9 % (95.0-98.0); CARBOXYHEMOGLOBIN 1.7 % (0.5-1.5); HHB 2.3 % (0-5)
[2017-01-17 09:04] LABS: ARTERIAL BLOOD GAS PH 7.17 (7.35-7.45)
[2017-01-17] MEDS: Insulin Reg-LOW-Coverage SC SCH ×4 (10:05→22:10)
[2017-01-17] MEDS: Pantoprazole 40 mg EC Tab PO SCH (10:14)
[2017-01-17] MEDS: Magnesium Oxide 400 mg Tab UD PO SCH (10:14)
[2017-01-17] MEDS: cefTRIAXone 1 gm 100 ML IVPB SCH (10:15)
[2017-01-17] MEDS: Azithromycin 500MG/NS 250ml 250 ML IVPB SCH (10:15)
[2017-01-17 10:47] LABS: ARTERIAL BLOOD GAS HCO3 27.6 mmol/L (21-28); ARTERIAL BLOOD GAS O2 CAPACITY 12.3 mL/dl (16-24); ARTERIAL BLOOD GAS O2 CONTENT 12.3 ML/dl (15-23); ARTERIAL BLOOD GAS PH 7.25 (7.35-7.45); ARTERIAL BLOOD HGB O2 SAT 97.4 % (95.0-98.0); CARBOXYHEMOGLOBIN 2.6 % (0.5-1.5); HHB 0 % (0-5)
[2017-01-17] MEDS ORDERED: metOLazone 5 MG TAB PO STA (12:50)
--- NOTE | 2017-01-17 14:29 | CON ---
DATE: 01/17/2017 The patient is in room 367, bed 2. REASON FOR CONSULTATION: Shortness of breath, history of coronary artery disease, history of congest jose g heart failure, history of severe pulmonary hypertension, chronic obstructive pulmonary disease, o bstructive sleep apnea, obesity. HISTORY OF PRESENT ILLNESS: The patient is a 46-year-old male, known case of severe pulmonary hypert ension, congestive heart failure, coronary artery disease, hypertension, morbid obesity, admitted wit h a history that he was having shortness of breath which gradually got worse and on the day of admiss ion it was markedly increased without any chest pain or palpitation. The patient since admission is feeling better now. The patient known to have also obstructive sleep apnea. PAST MEDICAL HISTORY: Positive for obstructive sleep apnea, COPD, hypertension, morbid obesity, robert re pulmonary hypertension, coronary artery disease, LV dysfunction. ALLERGIES: No known allergies. PERSONAL HISTORY: Positive for tobacco. Denies alcohol intake. FAMILY HISTORY: Not significant. HOME MEDICATIONS: Lasix, Cozaar, Coreg, Zocor, Renagel, Levemir insulin, Ecotrin, hydralazine, Radha ax. PREVIOUS CARDIAC HISTORY: The patient on 08/16/2016 had echocardiogram, which showed right ventricle was moderately dilated with mild hypertrophy, RV systolic function was mildly reduced. Mild mitral regurg, moderate pulmonary hypertension, mild concentric LVH, LV systolic function mildly impaired, f lattening of the septum consistent with RV pressure volume overload, RV systolic pressure with echo w as 64 mmHg. Ejection fraction was 45%. The patient had cardiac catheterization on 01/07/2017, which showed mid LAD 70% stenosis, proximal ramus also 70% stenosis, mildly decreased LV function with eje ction fraction 45-50% . EDP was 20-25 mmHg, right heart catheterization shows RA pressure is 20 mmHg , RV pressure 85/20 mmHg, and PA pressure is 90/37 with a mean of 50 PA pressure. PC wedge was 20-22 . Cardiac output 8.03. Cardiac index 3.42. PVR 35 Wood units. The patient had abnormal kidney fun ction at that time, so angioplasty was not done with the fear the patient will go on dialysis with re nal failure, so it was suggested to consider [employer] of LAD and ramus once patient's kidney status has im proved or patient goes on dialysis. REVIEW OF SYSTEMS: All the systems were reviewed, positive mentioned in the history, others were neg ative. PHYSICAL EXAMINATION: VITAL SIGNS: Blood pressure 129/60, respirations 30, pulse 60. The patient is afebrile. HEENT: Head is normocephalic. Eyes: Pupils normal. Conjunctivae slightly pale. NECK: JVP low. Carotid equal. THORAX: AP diameter normal. LUNGS: Few basilar rales. CARDIOVASCULAR: S1, S2. ABDOMEN: Protuberant, no organomegaly. EXTREMITIES: No clubbing, no cyanosis. LABORATORY DATA: WBC 4.7, hemoglobin 9.1, hematocrit 29.6, platelet 156. Sodium 142, potassium 5.0, BUN 44, creatinine 4.1, calcium 7.6. AST, ALT normal. Albumin, protein normal. NT-pro B-type natr iuretic pep 12,200. Chest x-ray showed cardiomegaly, congestive heart failure changes. EKG showed s inus rhythm, low voltage, nonspecific ST-T changes. DIAGNOSES: Congestive heart failure, obstructive sleep apnea, chronic obstructive pulmonary disease , hypertension, renal failure, morbid obesity, anemia, obstructive sleep apnea, coronary artery disea se, left ventricular dysfunction with left ventricular ejection fraction 45-50% on cardiac catheteriz ation as mentioned above. PLAN: The patient getting hydralazine 25 mg t.i.d., Coreg 12.5 b.i.d., losartan 25 mg daily, ferrous sulfate 324 mg daily, heparin 5000 units q. 12 hours, furosemide 40 mg IV q. 12 hours, Protonix 40 m g daily, Rocephin 1 g IV daily, azithromycin 500 mg IV daily. We also give Zaroxolyn 5 mg p.o. today to help diuresis. We will also add Ecotrin 81 mg daily to therapy. We will check lipid profile. W e will monitor intake and output and we will follow with you. Lisa Lei MD cc: [id number] TT: 01/17/2017 14:28:31 Confirmation # [id number] Dictation # [id number]
--- NOTE | 2017-01-17 18:38 | CP.PCM.CON ---
History of Present Illness - History of Present Illness History of Present Illness: 46 yo M w/ pmh of DM (since ~20 yrs), htn, KARON on CPAP, CAD, morbid obesity and CKD IV/V, presented to ED with worsening shortness of breath. Patient relates sob progressively increasing since past year, but worse over past 1 week; also with increasing abdominal girth since past year; he denies any significant increase in leg swelling, however, on day of presentation, he reports marked leg weakness although was still able to ambulate; he denies any change in urinary frequency from baseline and reports some increase in urination since being admitted; Patient had cardiac cath done on 01/07/17 but doesn't know the results; he reports compliance with his meds which he reports haven't been changed in a month. Review of Systems - Constitutional Constitutional: Weight Gain, Weakness. absent: Anorexia, Chills - EENT Eyes: absent: Blurred Vision, Change in Vision Ears: Decreased Hearing Nose/Mouth/Throat: absent: Epistaxis, Sinus Pain, Sore Throat Additional comments: chronic hearing deficit, uses hearing aides; Rhinorrhea since past month; - Cardiovascular Cardiovascular: Dyspnea, Leg Edema. absent: Chest Pain - Respiratory Respiratory: Cough, Dyspnea Additional comments: intermittent dry cough; - Gastrointestinal Gastrointestinal: Abdominal Pain, Diarrhea. absent: Nausea, Vomiting Additional comments: several episodes of diarrhea 3 days ago, now resolved; - Genitourinary Genitourinary: absent: Hematuria Additional comments: Urinates as much as 7 times at night; difficulty passing urine but chronic; - Musculoskeletal Musculoskeletal: absent: Arthralgias, Back Pain - Integumentary Integumentary: absent: Pruritus, Rash - Neurological Neurological: Numbness. absent: Vertigo Additional comments: bilateral toe numbness - Psychiatric Psychiatric: Anxiety. absent: Depression - Hematologic/Lymphatic Hematologic: absent: Easy Bleeding, Easy Bruising Past Patient History - Infectious Disease Hx of Infectious Diseases: None - Tetanus Immunizations Tetanus Immunization: Unknown - Past Medical History & Family History Past Medical History?: Yes Pertinent Family History: Mother with pacemaker; father of colon CA; no history of kidney disease; - Past Social History Smoking Status: Never Smoked Alcohol: None Drugs: Denies - CARDIAC Hx Hypertension: Yes Hx Pacemaker: No - PULMONARY Hx Respiratory Disorders: Yes Hx Sleep Apnea: Yes Other/Comment: Fluid in lungs - NEUROLOGICAL Hx Paralysis: No - HEENT Hx HEENT Problems: Yes (USES GLASSES) - RENAL Hx Chronic Kidney Disease: Yes Hx Renal Failure: Yes - ENDOCRINE/METABOLIC Hx Endocrine Disorders: Yes Hx Diabetes Mellitus Type 1: Yes - HEMATOLOGICAL/ONCOLOGICAL Hx Blood Transfusions: No Hx Blood Transfusion Reaction: No - INTEGUMENTARY Hx Dermatological Problems: No - MUSCULOSKELETAL/RHEUMATOLOGICAL Hx Musculoskeletal Disorders: No - GASTROINTESTINAL Hx Gastrointestinal Disorders: Yes Hx Gastroesophageal Reflux: Yes - GENITOURINARY/GYNECOLOGICAL Hx Genitourinary Disorders: No - PSYCHIATRIC Hx Emotional Abuse: No Hx Physical Abuse: No Hx Substance Use: No - SURGICAL HISTORY Hx Appendectomy: Yes Hx Coronary Stent: Yes - ANESTHESIA Hx Anesthesia Reactions: No Hx Malignant Hyperthermia: No Meds Allergies/Adverse Reactions: Allergies Allergy/AdvReac Type Severity Reaction Status Date / Time No Known Allergies Allergy Verified 01/16/17 12:36 - Medications Medications: Current Medications Aripiprazole (Abilify) 5 mg PO DAILY [facility] Last Admin: 01/17/17 10:11 Dose: 5 mg Aspirin (Ecotrin) 81 mg PO DAILY [facility] Last Admin: 01/17/17 13:05 Dose: 81 mg Calcitriol (Rocaltrol) 0.25 mcg PO QAM [facility] Last Admin: 01/17/17 10:14 Dose: 0.25 mcg Carvedilol (Coreg) 12.5 mg PO BID [facility] Last Admin: 01/17/17 17:46 Dose: 12.5 mg Ferrous Sulfate (Feosol) 324 mg PO QAM [facility] Last Admin: 01/17/17 10:13 Dose: 324 mg Furosemide (Lasix) 80 mg IVP Q8H [facility] Heparin Sodium (Porcine) (Heparin) 5,000 units SC Q12 [facility] PRN Reason: Protocol Last Admin: 01/17/17 10:00 Dose: 5,000 units Hydralazine HCl (Apresoline) 25 mg PO TID [facility] Last Admin: 01/17/17 17:46 Dose: 25 mg Azithromycin (Zithromax 500mg In Ns) 250 mls @ 167 mls/hr IVPB DAILY [facility] PRN Reason: Protocol Last Admin: 01/17/17 10:15 Dose: 167 mls/hr Ceftriaxone Sodium (Rocephin 1 Gram Ivpb) 100 mls @ 100 mls/hr IVPB DAILY [facility] PRN Reason: Protocol Last Admin: 01/17/17 10:15 Dose: 100 mls/hr Insulin Human Regular (Humulin R Low) 0 units SC ACHS [facility] PRN Reason: Protocol Last Admin: 01/17/17 18:11 Dose: Not Given Losartan Potassium (Cozaar) 25 mg PO [facility] Last Admin: 01/17/17 10:13 Dose: 25 mg [facility] ([facility]) [facility] [place] Admin: 01/17/17 10:14 Dose: 400 mg Pantoprazole Sodium (Protonix Ec Tab) 40 mg PO [facility] Last Admin: 01/17/17 10:14 Dose: 40 mg Polyethylene Glycol (Miralax) 17 gm PO BID PRN PRN Reason: Constipation Physical Exam - Constitutional Appears: Non-toxic, No Acute Distress - Head Exam Head Exam: NORMAL INSPECTION - Eye Exam Eye Exam: Normal appearance. absent: Scleral icterus Pupil Exam: absent: Unequal - ENT Exam ENT Exam: Mucous Membranes Moist - Neck Exam Additional comments: Large neck circumference - Respiratory Exam Respiratory Exam: Clear to Auscultation Bilateral. absent: Rales, Rhonchi Additional comments: bronchial breath sounds on R; - Cardiovascular Exam Cardiovascular Exam: REGULAR RHYTHM, +S1, +S2. absent: Gallop - GI/Abdominal Exam GI & Abdominal Exam: Distended, Normal Bowel Sounds, Soft Additional comments: L sided ventral hernia with tenderness over it (reports this as chronic); - Exam Exam: absent: Circumcision - Extremities Exam Extremities exam: Positive for: normal capillary refill, pedal pulses present Additional comments: Marked bilateral leg edema extending to lower abd wall and low back; - Neurological Exam Neurological exam: Alert, CN II-XII Intact, Oriented x3 Additional comments: 5/5 motor strength in b/l UE and LE - Psychiatric Exam Psychiatric exam: Normal Affect, Normal Mood - Skin Skin Exam: Normal Color, Warm Results - Vital Signs Recent Vital Signs: Last Vital Signs Temp 97 F L 01/17/17 18:23 Pulse 60 01/17/17 18:23 Resp 19 01/17/17 18:23 BP 144/80 01/17/17 18:23 Pulse Ox 100 01/17/17 06:00 - Labs Result Diagrams: 01/17/17 06:30 01/17/17 06:30 Labs: Laboratory Results - last 24 hr 01/17/17 01/17/17 01/17/17 06:30 08:58 10:40 WBC 4.7 D RBC 3.29 L Hgb 9.1 L Hct 29.6 L MCV 90.0 MCH 27.7 MCHC 30.7 L RDW 16.1 H Plt Count 156 MPV 10.7 Gran % 63.7 Lymph % (Auto) 24.8 [place] % (Auto) 9.6 H Eos % (Auto) 1.7 Baso % (Auto) 0.2 Gran # 2.98 Lymph # 1.2 [place] # 0.5 Eos # 0.1 Baso # 0.01 pCO2 82 H* 63 H pO2 89.0 128.0 H HCO3 29.9 H 27.6 ABG pH 7.17 L* 7.25 L ABG Total CO2 32.4 H 29.5 H ABG O2 Saturation 97.6 100.0 H ABG O2 Content 12.4 L 12.3 L ABG Base Excess 0.3 -0.2 ABG Hemoglobin 9.2 L 8.8 L ABG Carboxyhemoglobin 1.7 H 2.6 H POC ABG HHb (Measured) 2.3 0 ABG Methemoglobin 1.0 0.0 ABG O2 Capacity 12.7 L 12.3 L Hgb O2 Saturation 94.9 L 97.4 FiO2 32.0 30.0 Sodium 142 Potassium 5.0 Chloride 104 Carbon Dioxide 31 Anion Gap 12 BUN 44 H Creatinine 4.1 H Est GFR ( Amer) 19 Est GFR (Non-Af Amer) 16 Random Glucose 83 Calcium 7.6 L Total Bilirubin 0.3 AST 27 ALT 42 Alkaline Phosphatase 72 Total Protein 5.8 Albumin 3.0 Globulin 2.8 Albumin/Globulin Ratio 1.1 - Imaging and Cardiology Chest x-ray Status: Image reviewed by me Assessment & Plan (1) CHF exacerbation Assessment and Plan: Severe volume overload likely ongoing since at least several months with echo from 07/2016 showing mild systolic dysfunction but RV pressure overload and flattening of ventricular septum; right heart cath from 10 days ago confirms this with high PA pressure but also with high left sided pressures with wedge of 23, likely contributed to in major part by very low GFR; Patient has UO of ~1300 cc in 11 hours today on IV lasix 40 mg q12h (increased to q8h); weight today is 291.7 lbs on standing scale, increased from 280 lbs on 01/04/17 and 249 lbs on 10/03/16; -will increase lasix to 80 mg IV q8h with goal of losing 2-3 lbs per day Status: Acute (2) Chronic kidney disease (CKD), stage V Assessment and Plan: CKD IV/V; relatively stable electrolyte status (mild hyperkalemia noted); discussed with patient on the impending need for dialysis and need to setup permanent AV access; needs higher doses of diuretics in order to have adequate tubular delivery of the drug in setting of advanced CKD; Status: Chronic (3) HTN (hypertension) Assessment and Plan: BP mildly elevated; on coreg, hydralazine and losartan; will improve with further diuresis; Status: Chronic (4) Hypercapnic respiratory failure Assessment and Plan: Inadequate renal metabolic compensation represents either an acute worsening of hypercapnea and/or superimposed non-gap metabolic acidosis associated with advanced CKD; improving with BIPAP; agree with treating for possible PNA as inciting cause for now; no dose renal adjustments needed for ceftriaxone and azithromycin; Status: Acute (5) Anasarca Assessment and Plan: Total body salt overload; needs aggressive but gradual diuresis; Status: Acute (6) Hyperkalemia Assessment and Plan: Mild; losartan is likely contributory; will continue for now and observe as patient is on more potent diuretic doses; Status: Acute
[2017-01-18 06:34] LABS: ADD MANUAL DIFF? NO
[2017-01-18 06:44] LABS: BASO # 0.01 K/mm3 (0.0-2.0); BASO % 0.2 % (0.0-3.0); EOS # 0.1 (0.0-0.7); EOS % 1.9 % (1.5-5.0); GRAN # 3.88 (1.4-6.5); GRAN % 72.2 % (50.0-68.0); LYMPH # 0.9 (1.2-3.4); LYMPH % 16.8 % (22.0-35.0); MEAN CELL VOLUME 90.6 fL (80.0-105.0); MEAN CORPUSCULAR HEMOGLOBIN 27.8 pg (25.0-35.0); MEAN CORPUSCULAR HGB CONC 30.7 g/dl (31.0-37.0); MEAN PLATELET VOLUME 10.1 fl (7.0-11.0); MONO # 0.5 (0.1-0.6); MONO % 8.9 % (1.0-6.0); PLATELET COUNT 163 10^3/uL (120.0-450.0); RED CELL DISTRIBUTION WIDTH 16.2 % (11.5-14.5); WHITE BLOOD COUNT 5.4 10^3/ul (4.5-11.0)
[2017-01-18 06:54] LABS: BILIRUBIN,TOTAL 0.3 mg/dL (0.2-1.3); POTASSIUM 5.1 mmol/L (3.6-5.0); TOTAL PROTEIN 5.8 g/dL (5.8-8.3)
[2017-01-18 06:54] LABS: ARTERIAL BLOOD GAS HCO3 29.5 mmol/L (21-28); ARTERIAL BLOOD GAS O2 CAPACITY 12.3 mL/dl (16-24); ARTERIAL BLOOD GAS O2 CONTENT 11.8 ML/dl (15-23); ARTERIAL BLOOD GAS PH 7.22 (7.35-7.45); ARTERIAL BLOOD HGB O2 SAT 93.9 % (95.0-98.0); CARBOXYHEMOGLOBIN 1.6 % (0.5-1.5); HHB 3.9 % (0-5); METHEMOGLOBIN 0.7 % (0.0-3.0)
[2017-01-18] MEDS: Insulin Reg-LOW-Coverage SC SCH ×4 (08:02→22:53)
--- NOTE | 2017-01-18 08:26 | PN ---
DATE: 01/18/2017 SUBJECTIVE: The patient appears very comfortable at rest. He is not short of breath. He is awake and alert. PHYSICAL EXAMINATION: VITAL SIGNS: Temperature is 97.3, pulse 67, respirations 18/20, blood pressure 114/49. Oxygen saturation on BiPAP is 98%-100%. HEENT: Normocephalic, atraumatic. Positive JVD. CARDIOVASCULAR: Positive S1, S2. Positive S3 gallop. LUNGS: Crackles at both bases. No rhonchi. No wheezing. EXTREMITIES: Positive for edema. No cyanosis, no clubbing. Calves are nontender to palpation. GASTROINTESTINAL: Abdomen is soft, nontender, nondistended. Bowel sounds are positive. SKIN: No acute rash. NEUROLOGIC: Limited at the present time. PERTINENT LABORATORY DATA: Arterial blood gas was done this morning on BiPAP 20 /8 with 30% oxygen. Results are: PH 7.22, pCO2 72, pO2 of 73. IMPRESSION: 1. Recurrent congestive heart failure. 2. Dilated cardiomyopathy. 3. Coronary artery disease. 4. Respiratory failure. 5. Obstructive sleep apnea. 6. Worsening renal dysfunction. PLAN: The patient appears very comfortable this morning. He is not short of breath at rest. He is awake and alert. I did review the arterial blood gas -- as above. A moderately severe respiratory acidosis remains. There is also a mild increase in the alveolar-arterial gradient. I will change the BIPAP settings again--and repeat an arterial blood gas. I did discuss the case with the night nurse at length. Minimal urinary output was noted -- for the past shift. I did discuss the case with Dr. Lang at length yesterday. I have also reviewed the note by renal. The diuretics have been increased. However, the patient may need hemodialysis at this point in time. Repeat a.m. labs are pending. I will discuss the above with the attending physician early this morning. The patient's clinical status remains very guarded overall. Kem Tom MD cc: [id number] TT: 01/18/2017 08:25:54 Confirmation # [id number] Dictation # [id number] en MTDD
[2017-01-18] MEDS: Milrinone 20mg/100ml D5W 100 ML IV PRN ×2 (09:33→21:02)
--- NOTE | 2017-01-18 09:35 | PN ---
DATE: 01/18/2017 REASON FOR CONSULTATION AND FOLLOWUP: Shortness of breath, inability to walk, coronary artery diseas e, congestive heart failure, morbid obesity, pulmonary hypertension. BRIEF CLINICAL HISTORY: This is a 46-year-old male with history of morbid obesity, severe pulmonary hypertension, COPD, congestive heart failure, history of coronary artery disease, status post stent, pulmonary hypertension, who recently had cardiac catheterization done that revealed 2-vessel disease and severe pulmonary hypertension, admitted yesterday because of inability to walk and gets short of breath; on CPAP. PHYSICAL EXAMINATION: VITAL SIGNS: Temperature afebrile, heart rate 68, blood pressure 114/49. HEENT: PERRLA. Extraocular muscles intact. NECK: Supple. No carotid bruits. No thyromegaly. CHEST: Clear to auscultation. HEART: S1, S2 regular. ABDOMEN: Soft. EXTREMITIES: Clubbing and cyanosis negative. BLOOD WORKUP: WBC 5.4, hemoglobin 8.9, hematocrit 29, platelet count 163. Chemistry shows sodium 14 0, potassium 5.____, chloride 103, carbon dioxide 30, anion gap of 12, BUN 46, creatinine 4.5. TSH 4 .96. Albumin 2.9, albumin/globulin ratio 1. Triglyceride 171, cholesterol 122, LDL 50, HDL 30. 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 Recently cardiac catheterization done that revealed 2-vessel disease dated 01/07/2017: Left anterior descending 70% stenosis and karmen us intermedius 70% stenosis. Left ventricular function 45-50%. EDP was in the range of 20-25, pulmo nary artery pressure 90/37, mean of pulmonary artery pressure was 50, pulmonary capillary wedge press ure 20-____. Pulmonary vascular resistance 3.5 Wood's unit. Decision was made to treat medically fo r coronary artery disease till the patient starts dialysis or renal function improves, because after the angioplasty patient will need dialysis because of dye load. The patient yesterday admitted with decompensated congestive heart failure, shortness of breath, inability to walk. RECOMMENDATION: Continue gentle Lasix. Will start low dose of Primacor. Avoid nephrotoxic medicati on. Needs a very fine line balance between over diuresis and under dialysis, because under diuresis will cause patient to stay in CHF, over diuresis can throw him into more acute renal failure and may need dialysis. Discussed with the patient. We will start Primacor and monitor electrolytes and rivera l function closely. Continue Coreg. Avoid nephrotoxic medication. Continue gentle diuretics p.r.n. Eventually, the patient may need dialysis. Discussed with the patient, discussed with the patient' s mother the last admission and the catheterization. Will follow with you. Lisa Minor MD cc: [id number] TT: 01/18/2017 09:34:30 Confirmation # [id number] Dictation # [id number] mn
--- NOTE | 2017-01-18 09:40 | CP.PCM.PN ---
<Kailee Mcgregor - Last Filed: 01/18/17 13:11> Subjective - Date & Time of Evaluation Date of Evaluation: 01/18/17 Time of Evaluation: 09:38 - Subjective Subjective: PGY-1 Medicine progress note Patient seen and examined at bedside in telemetry. No acute distress, he is comfortable. Nurse reports no events overnight, patient was on bipap overnight. Patient states that feels better. He states his breathing has improved. He reports mild abdominal pain at baseline. He denies fever, chills, chest pain, n/ v. Output from valdes cath was 1350cc since insertion. Objective - Vital Signs/Intake and Output Vital Signs (last 24 hours): Temp Pulse Resp BP Pulse Ox 97.3 F L 68 20 114/49 L 98 01/18/17 05:51 01/18/17 08:19 01/18/17 05:51 01/18/17 05:51 01/18/17 05:51 Intake and Output: 01/18/17 01/18/17 06:59 18:59 Intake Total 420 Output Total 1350 Balance -930 - Medications Medications: Current Medications Aripiprazole (Abilify) 5 mg PO DAILY [facility] Last Admin: 01/17/17 10:11 Dose: 5 mg Aspirin (Ecotrin) 81 mg PO DAILY [facility] Last Admin: 01/17/17 13:05 Dose: 81 mg Calcitriol (Rocaltrol) 0.25 mcg PO QAM [facility] Last Admin: 01/17/17 10:14 Dose: 0.25 mcg Carvedilol (Coreg) 12.5 mg PO BID [facility] Last Admin: 01/17/17 17:46 Dose: 12.5 mg Ferrous Sulfate (Feosol) 324 mg PO QAM [facility] Last Admin: 01/17/17 10:13 Dose: 324 mg Furosemide (Lasix) 80 mg IVP Q8H [facility] Last Admin: 01/18/17 02:30 Dose: 80 mg Heparin Sodium (Porcine) (Heparin) 5,000 units SC Q12 [facility] PRN Reason: Protocol Last Admin: 01/17/17 22:28 Dose: 5,000 units Hydralazine HCl (Apresoline) 25 mg PO TID [facility] Last Admin: 01/17/17 17:46 Dose: 25 mg Azithromycin (Zithromax 500mg In Ns) 250 mls @ 167 mls/hr IVPB DAILY [facility] PRN Reason: Protocol Last Admin: 01/17/17 10:15 Dose: 167 mls/hr Ceftriaxone Sodium (Rocephin 1 Gram Ivpb) 100 mls @ 100 mls/hr IVPB DAILY [facility] PRN Reason: Protocol Last Admin: 01/17/17 10:15 Dose: 100 mls/hr Milrinone Lactate/Dextrose (Primacor 20mg/100ml D5w) 100 mls @ 7.729 mls/hr IV .[id number] PRN; Protocol; 0.2 MCG/KG/MIN PRN Reason: TITRATE PER MD ORDER Insulin Human Regular (Humulin R Low) 0 units SC ACHS [facility] PRN Reason: Protocol Last Admin: 01/18/17 08:02 Dose: Not Given Losartan Potassium (Cozaar) 25 mg PO [facility] Last Admin: 01/17/17 10:13 Dose: 25 mg Magnesium Oxide (Mag-Ox) 400 mg PO [facility] Last Admin: 01/17/17 10:14 Dose: 400 mg Pantoprazole Sodium (Protonix Ec Tab) 40 mg PO [facility] Last Admin: 01/17/17 10:14 Dose: 40 mg Polyethylene Glycol (Miralax) 17 gm PO BID PRN PRN Reason: Constipation Sodium Polystyrene Sulfonate (Kayexalate Oral Susp) 15 gm PO ONCE ONE Stop: 01/18/17 10:01 - Labs Labs: 01/18/17 05:30 01/18/17 05:30 PT 11.7 Seconds (9.9-11.8) 01/16/17 13:00 INR 1.08 (0.93-1.08) 01/16/17 13:00 APTT 25.3 Seconds (23.7-30.8) 01/16/17 13:00 - Constitutional Appears: Well, No Acute Distress - Head Exam Head Exam: ATRAUMATIC, NORMOCEPHALIC - Eye Exam Eye Exam: EOMI, Normal appearance - ENT Exam ENT Exam: Mucous Membranes Dry - Respiratory Exam Respiratory Exam: Decreased Breath Sounds, Rhonchi, NORMAL BREATHING PATTERN Additional comments: on bipap - Cardiovascular Exam Cardiovascular Exam: REGULAR RHYTHM. absent: Tachycardia, Murmur - GI/Abdominal Exam GI & Abdominal Exam: Distended, Soft, Tenderness, Hernia, Normal Bowel Sounds. absent: Firm - Extremities Exam Extremities Exam: Pedal Edema Additional comments: +1 pitting edema - Neurological Exam Neurological Exam: Alert, Awake, Oriented x3 - Skin Skin Exam: Dry, Intact, Normal Color, Warm Assessment and Plan - Assessment and Plan (Free Text) Assessment: 46 yo male with PMH of DM, HTN, CKD, CAD, KARON presented with progressively worsening SOB due to CHF exacerbation and respiratory acidosis. CXR showed diffuse infiltrates and vascular congestion, pulm edema. Patient was on bipap yesterday thought the day and overnight. This mornings ABG conts to show respiratory acidosis unchanged. Plan: 1. respiratory acidosis - AM ABG shows respiratory acidosis - patient has been on bipap with settings IPAP 20, EPAP 8, rate 14 since yesterday - ABG this morning conts to shows respiratory acidosis, with pCO2 of 72 - bipap setting increased, IPAP 24, EPAP 10, rate 18 - will transfer to tele floor - repeat ABG - increased lasix to 80 IV q8 - started on milirnone 20 2. CHF exacerbation - CXR showed diffuse infiltrates and vascular congestion, pulm edema. - cont abx ceftriaxone and azithromycin for possible pna - increased lasix to 80 IV q8 - started on milirnone 20 - valdes to moniotr strict I&O, outpu 1350 - will cont bipap - patient states he will have family bring his cpap from home - patient on O2 3L while not on bipap - cardio following, Dr. Minor - pulm following, Dr. Tom - nephro following - most likely will need dialysis to remove fluid - surgery consulted for permacath placement 3. CKD - appears be baseline - most likely will need dialysis to remove fluid - valdes to moniotr strict I&O, outpu 1350 - increased lasix to 80 IV q8 - started on milirnone 20 - nephro follow - cont to monitor - cont home med calcitriol - surgery and IR consulted for permacath placement 4. anemia - hgb downtrending, hgb 8.9 - cont home med feosol - cont to monitor - personal lines insurance advisor consulted, Dr. Salazar 5. hyperkalemia - this AM 5.1 - repeat in AM - cont to monitor - nephro following 6.HTN - cont home meds coreg, hydralazine, losartan 7. DM - ISSS- low - finger sticks ACHS ppx - GI ppx protonix - DVT ppx heparin <RickeyAdrian - Last Filed: 02/22/17 14:12> Objective - Vital Signs/Intake and Output Vital Signs (last 24 hours): Temp Pulse Resp BP Pulse Ox 98.0 F 59 L 18 140/70 97 01/30/17 08:00 01/30/17 08:00 01/30/17 08:00 01/30/17 09:31 01/30/17 08:00 - Labs Labs: 01/30/17 11:20 01/30/17 11:20 PT 11.7 Seconds (9.9-11.8) 01/16/17 13:00 INR 1.08 (0.93-1.08) 01/16/17 13:00 APTT 25.3 Seconds (23.7-30.8) 01/16/17 13:00 Attending/Attestation - Attestation I have personally seen and examined this patient.: Yes I have fully participated in the care of the patient.: Yes I have reviewed all pertinent clinical information, including history, physical exam and plan: Yes Notes (Text): 02/22/17 14:11 Medical record note made by the resident after discussion with my direction and input after the patient was personally seen and examined by me. I have reviewed the chart and agree that the record accurately reflects by personal performance of the history, physical exam, data review, and medical decision-making, in the course for the patient. I have also personally directed the plan of care.
[2017-01-18] MEDS ORDERED: Sod Polystyrene Sulf 15 gm/60 ml Oral Susp PO ONE (10:00)
[2017-01-18 10:06] LABS: ARTERIAL BLOOD GAS HCO3 29.1 mmol/L (21-28); ARTERIAL BLOOD GAS O2 CAPACITY 12.5 mL/dl (16-24); ARTERIAL BLOOD GAS O2 CONTENT 12.2 ML/dl (15-23); ARTERIAL BLOOD GAS PH 7.24 (7.35-7.45); ARTERIAL BLOOD HGB O2 SAT 95.3 % (95.0-98.0); CARBOXYHEMOGLOBIN 1.8 % (0.5-1.5); HHB 2.2 % (0-5); METHEMOGLOBIN 0.6 % (0.0-3.0)
[2017-01-18] MEDS: Pantoprazole 40 mg EC Tab PO SCH (10:30)
[2017-01-18] MEDS: Magnesium Oxide 400 mg Tab UD PO SCH (10:31)
[2017-01-18] MEDS: Azithromycin 500MG/NS 250ml 250 ML IVPB SCH (10:53)
[2017-01-18] MEDS: cefTRIAXone 1 gm 100 ML IVPB SCH (13:14)
[2017-01-18] MEDS ORDERED: Lidocaine 2% Inj (20ml) ONE (14:31)
[2017-01-18] MEDS ORDERED: Heparin 0 ML IV ONE (14:31)
--- NOTE | 2017-01-18 14:38 | CP.PCM.CON ---
<[place] - Last Filed: 01/18/17 14:51> History of Present Illness - History of Present Illness History of Present Illness: SURGERY CONSULT NOTE FOR DR. RODRIGUEZ Consulted for permacat for hemodialysis 46M presented to the ED with shortness of breath 2/2 fluid overload from CHF exacerbation. Patient denies fevers, chill, chest chest pain. Currently on biPaP and states his shortness of breath as resolved. Patient has a history of CKD. PMH: DM, HTN, CKD, CAD, KARON PSH: cardiac cath with 2 stents, cataract, burst appendectomy Family hx: mother heart disease, father prostate ca social hx: denies alcohol, smoking, or illicit drug use allergy: NKDA Past Patient History - Infectious Disease Hx of Infectious Diseases: None - Tetanus Immunizations Tetanus Immunization: Unknown - Past Medical History & Family History Past Medical History?: Yes - Past Social History Smoking Status: Never Smoked Alcohol: None Drugs: Denies - CARDIAC Hx Hypertension: Yes Hx Pacemaker: No - PULMONARY Hx Respiratory Disorders: Yes Hx Sleep Apnea: Yes Other/Comment: Fluid in lungs - NEUROLOGICAL Hx Paralysis: No - HEENT Hx HEENT Problems: Yes (USES GLASSES) - RENAL Hx Chronic Kidney Disease: Yes Hx Renal Failure: Yes - ENDOCRINE/METABOLIC Hx Endocrine Disorders: Yes Hx Diabetes Mellitus Type 1: Yes - HEMATOLOGICAL/ONCOLOGICAL Hx Blood Transfusions: Yes (2010) Hx Blood Transfusion Reaction: No - INTEGUMENTARY Hx Dermatological Problems: No - MUSCULOSKELETAL/RHEUMATOLOGICAL Hx Musculoskeletal Disorders: No - GASTROINTESTINAL Hx Gastrointestinal Disorders: Yes Hx Gastroesophageal Reflux: Yes - GENITOURINARY/GYNECOLOGICAL Hx Genitourinary Disorders: No - PSYCHIATRIC Hx Emotional Abuse: No Hx Physical Abuse: No Hx Substance Use: No - SURGICAL HISTORY Hx Surgeries: Yes (Appendectomy) - ANESTHESIA Hx Anesthesia Reactions: No Hx Malignant Hyperthermia: No Meds Allergies/Adverse Reactions: Allergies Allergy/AdvReac Type Severity Reaction Status Date / Time No Known Allergies Allergy Verified 01/16/17 12:36 - Medications Medications: Current Medications Aripiprazole (Abilify) 5 mg PO DAILY [facility] Last Admin: 01/18/17 10:31 Dose: 5 mg Aspirin (Ecotrin) 81 mg PO DAILY [facility] Last Admin: 01/18/17 10:30 Dose: 81 mg Calcitriol (Rocaltrol) 0.25 mcg PO QAM [facility] Last Admin: 01/18/17 10:30 Dose: 0.25 mcg Carvedilol (Coreg) 12.5 mg PO BID [facility] Last Admin: 01/18/17 10:32 Dose: 12.5 mg Ferrous Sulfate (Feosol) 324 mg PO QAM [facility] Last Admin: 01/18/17 10:32 Dose: 324 mg Furosemide (Lasix) 80 mg IVP Q8H [facility] Last Admin: 01/18/17 02:30 Dose: 80 mg Heparin Sodium (Porcine) (Heparin) 5,000 units SC Q12 [facility] PRN Reason: Protocol Last Admin: 01/18/17 10:37 Dose: 5,000 units Hydralazine HCl (Apresoline) 25 mg PO TID [facility] Last Admin: 01/18/17 10:31 Dose: 25 mg Azithromycin (Zithromax 500mg In Ns) 250 mls @ 167 mls/hr IVPB DAILY [facility] PRN Reason: Protocol Last Admin: 01/18/17 10:53 Dose: 167 mls/hr Ceftriaxone Sodium (Rocephin 1 Gram Ivpb) 100 mls @ 100 mls/hr IVPB DAILY [facility] PRN Reason: Protocol Last Admin: 01/18/17 13:14 Dose: 100 mls/hr Milrinone Lactate/Dextrose (Primacor 20mg/100ml D5w) 100 mls @ 7.729 mls/hr IV .[id number] PRN; Protocol; 0.2 MCG/KG/MIN PRN Reason: TITRATE PER MD ORDER Last Admin: 01/18/17 09:33 Dose: 7.729 mls/hr Insulin Human Regular (Humulin R Low) 0 units SC ACHS [facility] PRN Reason: Protocol Last Admin: 01/18/17 12:04 Dose: Not Given Losartan Potassium (Cozaar) 25 mg PO QAM [facility] Last Admin: 01/18/17 10:30 Dose: 25 mg Magnesium Oxide (Mag-Ox) 400 mg PO QAM [facility] Last Admin: 01/18/17 10:31 Dose: 400 mg Pantoprazole Sodium (Protonix Ec Tab) 40 mg PO QAM [facility] Last Admin: 01/18/17 10:30 Dose: 40 mg Polyethylene Glycol (Miralax) 17 gm PO BID PRN PRN Reason: Constipation Physical Exam - Constitutional Appears: Other (morbidly obese) - Head Exam Head Exam: ATRAUMATIC - Eye Exam Eye Exam: EOMI, PERRL - ENT Exam ENT Exam: Mucous Membranes Moist - Respiratory Exam Respiratory Exam: Clear to Auscultation Bilateral, NORMAL BREATHING PATTERN - Cardiovascular Exam Cardiovascular Exam: REGULAR RHYTHM, +S1, +S2 - GI/Abdominal Exam GI & Abdominal Exam: Soft. absent: Distended, Firm, Guarding, Rebound, Rigid, Tenderness - Extremities Exam Extremities exam: Positive for: pedal edema. Negative for: tenderness Additional comments: pitting edema in the lower extremities - Neurological Exam Neurological exam: Alert, Oriented x3 - Psychiatric Exam Psychiatric exam: Normal Affect, Normal Mood - Skin Skin Exam: Dry, Intact, Normal Color, Warm Results - Vital Signs Recent Vital Signs: Last Vital Signs Temp 97.1 F L 01/18/17 12:00 Pulse 66 01/18/17 13:38 Resp 18 01/18/17 12:00 BP 107/65 01/18/17 12:46 Pulse Ox 98 01/18/17 05:51 - Labs Result Diagrams: 01/18/17 05:30 01/18/17 05:30 Labs: Laboratory Results - last 24 hr 01/16/17 01/17/17 01/17/17 21:31 07:35 11:27 WBC RBC Hgb Hct MCV MCH MCHC RDW Plt Count MPV Gran % Lymph % (Auto) [place] % (Auto) Eos % (Auto) Baso % (Auto) Gran # Lymph # [place] # Eos # Baso # pCO2 pO2 HCO3 ABG pH ABG Total CO2 ABG O2 Saturation ABG O2 Content ABG Base Excess ABG Hemoglobin ABG Carboxyhemoglobin POC ABG HHb (Measured) ABG Methemoglobin ABG O2 Capacity Hgb O2 Saturation FiO2 Sodium Potassium Chloride Carbon Dioxide Anion Gap BUN Creatinine Est GFR ( Amer) Est GFR (Non-Af Amer) POC Glucose (mg/dL) 146 H 81 134 H Random Glucose Calcium Total Bilirubin AST ALT Alkaline Phosphatase Total Protein Albumin Globulin Albumin/Globulin Ratio Triglycerides Cholesterol LDL Cholesterol Direct HDL Cholesterol TSH 3rd Generation 01/18/17 01/18/17 01/18/17 05:30 06:30 10:03 WBC 5.4 RBC 3.20 L Hgb 8.9 L Hct 29.0 L MCV 90.6 MCH 27.8 MCHC 30.7 L RDW 16.2 H Plt Count 163 MPV 10.1 Gran % 72.2 H Lymph % (Auto) 16.8 L [place] % (Auto) 8.9 H Eos % (Auto) 1.9 Baso % (Auto) 0.2 Gran # 3.88 Lymph # 0.9 L [place] # 0.5 Eos # 0.1 Baso # 0.01 pCO2 72 H* 68 H pO2 73.0 L 85.0 HCO3 29.5 H 29.1 H ABG pH 7.22 L 7.24 L ABG Total CO2 31.7 H 31.2 H ABG O2 Saturation 96.0 97.7 ABG O2 Content 11.8 L 12.2 L ABG Base Excess 0.9 0.9 ABG Hemoglobin 8.9 L 9.0 L ABG Carboxyhemoglobin 1.6 H 1.8 H POC ABG HHb (Measured) 3.9 2.2 ABG Methemoglobin 0.7 0.6 ABG O2 Capacity 12.3 L 12.5 L Hgb O2 Saturation 93.9 L 95.3 FiO2 30.0 30.0 Sodium 140 Potassium 5.1 H Chloride 103 Carbon Dioxide 30 Anion Gap 12 BUN 46 H Creatinine 4.5 H Est GFR ( Amer) 17 Est GFR (Non-Af Amer) 14 POC Glucose (mg/dL) Random Glucose 76 Calcium 8.0 L Total Bilirubin 0.3 AST 21 ALT 25 Alkaline Phosphatase 70 Total Protein 5.8 Albumin 2.9 L Globulin 2.9 Albumin/Globulin Ratio 1.0 L Triglycerides 171 H Cholesterol 122 L LDL Cholesterol Direct 50 HDL Cholesterol 30 TSH 3rd Generation 4.96 H Assessment & Plan - Assessment and Plan (Free Text) Assessment: 46M presents with SOB 2/2 fluid overload with history of chronic kidney disease Plan: - Continue medical management - Recommend left arm alert for future AVF - Recommend IR consult for permacath Discussed with Dr. Jennifer Starr, PGY1 <Dave Rodriguez - Last Filed: 01/27/17 22:48> Meds - Medications Medications: Current Medications Albuterol/Ipratropium (Duoneb 3 Mg/0.5 Mg (3 Ml) Ud) 3 ml IH TIDRESP DMITRIY Last Admin: 01/27/17 19:58 Dose: 3 ml Amlodipine Besylate (Norvasc) 10 mg PO DAILY [facility] Last Admin: 01/27/17 09:47 Dose: 10 mg Aripiprazole (Abilify) 5 mg PO DAILY [facility] Last Admin: 01/27/17 09:43 Dose: 5 mg Aspirin (Ecotrin) 81 mg PO DAILY [facility] Last Admin: 01/27/17 09:42 Dose: 81 mg Bumetanide (Bumex) 3 mg PO BID [facility] Last Admin: 01/27/17 17:34 Dose: 3 mg Calcitriol (Rocaltrol) 0.25 mcg PO [facility] Carvedilol (Coreg) 25 mg PO BID [facility] Last Admin: 01/27/17 17:34 Dose: 25 mg Ferrous Sulfate ([facility]ol) [facility] [place] Admin: 01/27/17 09:42 Dose: 324 mg Heparin Sodium (Porcine) (Heparin) 5,000 units SC Q12 [facility] PRN Reason: Protocol Last Admin: 01/27/17 21:57 Dose: 5,000 units Hydralazine HCl (Apresoline) 50 mg PO TID [facility] Last Admin: 01/27/17 17:34 Dose: 50 mg Iron Sucrose 100 mg/ Sodium (Chloride) 105 mls @ 210 mls/hr IVPB DAILY [facility] Last Admin: 01/27/17 09:43 Dose: 210 mls/hr Insulin Human Regular (Humulin R Low) 0 units SC ACHS [facility] PRN Reason: Protocol Last Admin: 01/27/17 17:21 Dose: Not Given Losartan Potassium (Cozaar) [facility] [place] Admin: 01/27/17 09:46 Dose: 25 mg Magnesium Oxide (Mag-Ox) 400 mg PO QAM [facility] Last Admin: 01/27/17 09:43 Dose: 400 mg Pantoprazole Sodium (Protonix Ec Tab) 40 mg PO QAM [facility] Last Admin: 01/27/17 09:42 Dose: 40 mg Polyethylene Glycol (Miralax) 17 gm PO BID [facility] Last Admin: 01/27/17 17:35 Dose: Not Given Results - Vital Signs Recent Vital Signs: Last Vital Signs Temp 98.3 F 01/27/17 16:47 Pulse 62 01/27/17 17:34 Resp 18 01/27/17 16:47 BP 137/78 01/27/17 17:34 Pulse Ox 96 01/27/17 16:47 - Labs Result Diagrams: 01/27/17 08:00 01/27/17 07:40 Labs: Laboratory Results - last 24 hr 01/27/17 01/27/17 01/27/17 07:31 07:40 08:00 WBC 5.0 RBC 3.37 L Hgb 9.5 L Hct 29.9 L MCV 88.7 MCH 28.2 MCHC 31.8 RDW 15.1 H Plt Count 196 MPV 9.7 Gran % 70.8 H Lymph % (Auto) 19.1 L [place] % (Auto) 9.3 H Eos % (Auto) 0.8 L Baso % (Auto) 0.0 Gran # 3.52 Lymph # 1.0 L [place] # 0.5 Eos # 0.0 Baso # 0.00 Sodium 135 Potassium 5.0 Chloride 95 Carbon Dioxide 35 H Anion Gap 10 BUN 61 H Creatinine 3.8 H Est GFR ( Amer) 21 Est GFR (Non-Af Amer) 17 POC Glucose (mg/dL) 105 Random Glucose 102 Calcium 8.7 Total Bilirubin 0.3 AST 58 ALT 49 Alkaline Phosphatase 84 Total Protein 5.8 Albumin 2.9 L Globulin 3.0 Albumin/Globulin Ratio 1.0 L 01/27/17 01/27/17 01/27/17 11:04 16:19 21:38 WBC RBC Hgb Hct MCV MCH MCHC RDW Plt Count MPV Gran % Lymph % (Auto) [place] % (Auto) Eos % (Auto) Baso % (Auto) Gran # Lymph # [place] # Eos # Baso # Sodium Potassium Chloride Carbon Dioxide Anion Gap BUN Creatinine Est GFR ( Amer) Est GFR (Non-Af Amer) POC Glucose (mg/dL) 139 H 134 H 105 Random Glucose Calcium Total Bilirubin AST ALT Alkaline Phosphatase Total Protein Albumin Globulin Albumin/Globulin Ratio Assessment & Plan - Assessment and Plan (Free Text) Assessment: Patient was seen and examined by me. I agree with assessment and plan as per resident's note. - Date & Time Date: 01/18/17 Time: 15:40
[2017-01-18] MEDS ORDERED: Darbepoetin Alfa 60 mcg/ml Inj SC ONE (15:43)
--- NOTE | 2017-01-18 16:21 | CON ---
DATE: 01/18/2017 He is currently located in 268, bed 2. REASON FOR HEMATOLOGY CONSULTATION: Known history of anemia. HISTORY OF PRESENT ILLNESS: This is a patient that is very well known to us who follows with Dr. Zachariah stanton. He has been noncompliant with his followup appointments in the past. Currently, his most recen t office visit was on 01/08/2017 at which time he was following up for known history of anemia. His workup thus far has concluded that anemia is most likely secondary to chronic kidney disease. Shagufta wynne, he is admitted with a complaint of shortness of breath that acutely and progressively had become worse. States that he felt very weak and was not able to complete his normal daily activities and c meagan to the Emergency Room. Currently, he is on BiPAP and able to answer sentences completely. He is alert, awake and oriented. On admission, his hemoglobin was noted to be 9.4. When he was in the [facility] [place]2017 his hemoglobin was at 10.0, and currently his hemoglobin has down trended to 8.9. All other counts are normal. He denies any complaints of bleeding currently or in the past. He was also taking outpatient Feosol which has been continued currently. PAST MEDICAL HISTORY: As per HPI as well as hypertension, diabetes, CAD, and obstructive sleep apnea . PAST SURGICAL HISTORY: He has had cardiac catheterization x 2 with stent placement, cataracts and a history of appendectomy. FAMILY HISTORY: Mother has heart disease. Father prostate CA. SOCIAL HISTORY: Currently denies any toxic habits. Denies alcohol, smoking, or illicit drug use. ALLERGIES: No known drug allergies. PHYSICAL EXAMINATION: VITAL SIGNS: T-max 97.1, heart rate 72, blood pressure 101/61, respiratory rate 18. GENERAL: AAO x 3. Currently resting in bed with BiPAP on. Able to answer sentences completely. HEENT: Normocephalic, atraumatic. Pupils are reactive bilaterally. LUNGS: Decreased breath sounds at bilateral bases. No rales, rhonchi or wheezing. CARDIOVASCULAR: S1, S2 normal, regular rate and rhythm. GASTROINTESTINAL: Protuberant abdomen. Normal bowel sounds. Soft, nontender, nondistended. EXTREMITIES: Positive edema. No cyanosis or clubbing. LABORATORY DATA: White blood cell count 5.4, hemoglobin 8.9, hematocrit 29.0, platelet count 163. C hemistry: Sodium 140, potassium 5.1, chloride 103, bicarbonate 30, BUN 46, creatinine 4.5, glucose 7 6. AST 21, ALT 25, total bilirubin 0.3, albumin 2.9. PT 11.7, PTT 25.3, INR 1.08. ASSESSMENT AND PLAN: In summary, this is a 46-year-old male, very well known to us, also with a know n past medical history of anemia. He was most has recently seen on 01/08/2017 for followup. He has been known to be noncompliant in the past for this. At that time, the plan with Dr. Salazar was to co ntinue Feosol and to add Epogen supplements as needed to increase his hemoglobin due to chronic kidne y disease. Currently, he is admitted with fluid overload secondary to history of chronic kidney dise ase and is planned for hemodialysis after Perm-A-Cath has been placed. We will order Epogen suppleme nts for him while he is inpatient, as this was to be the plan outpatient. We will continue to follow his clinical course with you. Thank you kindly for this consultation. Michael Foster MD cc: [id number] TT: 01/18/2017 16:20:34 Confirmation # [id number] Dictation # [id number] ammy
--- NOTE | 2017-01-18 19:01 | PN ---
DATE: 01/18/2017 The patient is a 46-year-old male with past medical history of diabetes, hypertension, KARON on CPAP, C AD, morbid obesity and CKD IV/V. Admitted for decompensated CHF, anasarca. The patient reports darlene thing has improved since admission. The patient had been on BiPAP overnight. PHYSICAL EXAMINATION: VITAL SIGNS: Blood pressure this morning 114/49, heart rate of 83, respirations 20, O2 sat 98% on Bi PAP. GENERAL: No distress, able to speak in full sentences while off the BiPAP. HEENT: Large neck circumference. Moist mucous membranes. CHEST: Mild rales auscultated. Decreased breath sounds over right lung hopkins. HEART: S1, S2 positive, no murmurs, no gallops. ABDOMEN: Obese, soft. Left-sided ventral hernia, tender to palpation. Otherwise, rest of abdomen n ontender. EXTREMITIES: Marked leg edema extending to lower abdomen. LABORATORIES: CBC: WBC 5.4, hemoglobin 8.9, hematocrit 29, platelet count 163. CMP: Sodium 140, p otassium 5.1, chloride 103, bicarbonate 30, BUN 46, creatinine 4.5, glucose 76, calcium 8.0, albumin 2.9. ABG done this morning, pH 7.22, pCO2 of 72, pO2 of 73, bicarbonate 29.5. Subsequent to adjustm ents made on BiPAP, repeat ABG shows pH 7.24, pCO2 of 68, pO2 of 85, bicarbonate 29.1. ASSESSMENT: 1. Congestive heart failure exacerbation, secondary to mild systolic dysfunction as well as markedly low GFR. Responding to diuretics, has lost 2 pounds on standing scale over the past 16 hours. Also , started this morning on Primacor drip by cardiology in an effort to improve cardiac output. 2. Chronic kidney disease V. Mild increase in serum creatinine expected while getting aggressive di uresis. Mild hyperkalemia noted and inability to buffer acid load in the setting of chronic kidney d isease is contributing to overall acidosis. Again, discussed with patient the impending need for kath lysis. Discussed with the primary team as well. However, as patient is responding to diuretics and there as our concern is to avoid hemodialysis via catheter as this would be very prone to infection a nd other complications including loss of access sites, so we will try to defer starting dialysis unti l a permanent access can be established i.e., arteriovenous fistula or arteriovenous graft. This was also discussed with instructional specialist who has been taking care of the patient. 3. Hypertension, currently controlled on hydralazine 25 mg t.i.d., losartan 25 mg daily, Coreg 12.5 mg b.i.d. and diuretics with Lasix 80 mg IV q. 8 hours. Continue losartan for now, despite borderlin e hyperkalemia, as this is stable and the medication will help with cardiac optimization. 4. Hypercapnic respiratory failure causing marked acidosis with inadequate renal and metabolic compe nsation in the setting of advanced renal failure. Not significantly improved today, even though on B iPAP all night. On antibiotics for possible superimposed pneumonia. Can check procalcitonin level f or further guidance. 5. Vascular access. Will consult vascular surgeon to set up outpatient arteriovenous fistula/arteri ovenous graft placement. 6. Anemia, on p.o. iron supplementation. Aranesp given today. Should still check iron studies. Ma y benefit from iron when determined to be infection free. 7. Chronic kidney disease mineral bone disease, on calcitriol 0.25 mcg daily. Corrected calcium is low normal. Will check PTH level. Chester Perez MD cc: [id number] TT: 01/18/2017 19:01:11 Confirmation # [id number] Dictation # [id number]
[2017-01-19 05:07] LABS: ARTERIAL BLOOD GAS HCO3 29.1 mmol/L (21-28); ARTERIAL BLOOD GAS O2 CAPACITY 11.8 mL/dl (16-24); ARTERIAL BLOOD GAS O2 CONTENT 11.6 ML/dl (15-23); ARTERIAL BLOOD GAS PH 7.28 (7.35-7.45); ARTERIAL BLOOD HGB O2 SAT 95.7 % (95.0-98.0); CARBOXYHEMOGLOBIN 1.4 % (0.5-1.5); METHEMOGLOBIN 0.8 % (0.0-3.0)
[2017-01-19 07:21] LABS: ADD MANUAL DIFF? NO
[2017-01-19 07:31] LABS: BASO # 0.01 K/mm3 (0.0-2.0); BASO % 0.1 % (0.0-3.0); EOS # 0.1 (0.0-0.7); EOS % 1.6 % (1.5-5.0); GRAN # 5.34 (1.4-6.5); GRAN % 76.3 % (50.0-68.0); HEMATOCRIT 28.8 % (42.0-52.0); LYMPH # 1.1 (1.2-3.4); LYMPH % 15.6 % (22.0-35.0); MEAN CELL VOLUME 89.2 fL (80.0-105.0); MEAN CORPUSCULAR HEMOGLOBIN 27.6 pg (25.0-35.0); MEAN CORPUSCULAR HGB CONC 30.9 g/dl (31.0-37.0); MEAN PLATELET VOLUME 9.9 fl (7.0-11.0); MONO # 0.5 (0.1-0.6); MONO % 6.4 % (1.0-6.0); PLATELET COUNT 189 10^3/uL (120.0-450.0); RED CELL DISTRIBUTION WIDTH 15.9 % (11.5-14.5)
[2017-01-19 07:42] LABS: ALB/GLOB RATIO 1.1 (1.1-1.8); BILIRUBIN,TOTAL 0.2 mg/dL (0.2-1.3); CALCIUM 8.1 mg/dL (8.4-10.5); POTASSIUM 4.9 mmol/L (3.6-5.0); TOTAL PROTEIN 5.8 g/dL (5.8-8.3); URIC ACID 6.5 mg/dL (3.5-8.5)
[2017-01-19] MEDS: Insulin Reg-LOW-Coverage SC SCH ×4 (07:53→23:47)
--- NOTE | 2017-01-19 08:26 | CP.PCM.PN ---
<Kailee Mcgregor - Last Filed: 01/19/17 12:20> Subjective - Date & Time of Evaluation Date of Evaluation: 01/19/17 Time of Evaluation: 08:23 - Subjective Subjective: PGY-1 Medicine progress note Patient seen and examined at bedside on telemetry. No acute distress. Nurse reports no events overnight. Patient was on bipap all night. Patient states that his breathing feels the same as yesterday. He continues to report mild abd pain due to hernia that is consistent with baseline. He denies fever, chills, chest pain, n/v/d. He reports constipation. Patient states he is sleeping well. Valdes output of 1800 over 24 hours. Objective - Vital Signs/Intake and Output Vital Signs (last 24 hours): Temp Pulse Resp BP Pulse Ox 98.3 F 78 20 170/75 H 96 01/19/17 00:01 01/19/17 02:00 01/19/17 00:01 01/19/17 06:50 01/19/17 00:01 Intake and Output: 01/19/17 01/19/17 06:59 18:59 Intake Total 300 Output Total 950 Balance -650 - Medications Medications: Current Medications Aripiprazole (Abilify) 5 mg PO DAILY [facility] Last Admin: 01/18/17 10:31 Dose: 5 mg Aspirin (Ecotrin) 81 mg PO DAILY [facility] Last Admin: 01/18/17 10:30 Dose: 81 mg Calcitriol (Rocaltrol) 0.25 mcg PO QAM [facility] Last Admin: 01/18/17 10:30 Dose: 0.25 mcg Carvedilol (Coreg) 12.5 mg PO BID [facility] Last Admin: 01/18/17 17:47 Dose: 12.5 mg Ferrous Sulfate (Feosol) 324 mg PO QAM [facility] Last Admin: 01/18/17 10:32 Dose: 324 mg Furosemide (Lasix) 80 mg IVP Q8 [facility] Last Admin: 01/19/17 06:50 Dose: 80 mg Heparin Sodium (Porcine) (Heparin) 5,000 units SC Q12 [facility] PRN Reason: Protocol Last Admin: 01/18/17 23:31 Dose: 5,000 units Hydralazine HCl (Apresoline) 25 mg PO TID [facility] Last Admin: 01/18/17 17:47 Dose: 25 mg Azithromycin (Zithromax 500mg In Ns) 250 mls @ 167 mls/hr IVPB DAILY [facility] PRN Reason: Protocol Last Admin: 01/18/17 10:53 Dose: 167 mls/hr Ceftriaxone Sodium (Rocephin 1 Gram Ivpb) 100 mls @ 100 mls/hr IVPB DAILY [facility] PRN Reason: Protocol Last Admin: 01/18/17 13:14 Dose: 100 mls/hr Milrinone Lactate/Dextrose (Primacor 20mg/100ml D5w) 100 mls @ 7.729 mls/hr IV .[id number] PRN; Protocol; 0.2 MCG/KG/MIN PRN Reason: TITRATE PER MD ORDER Last Admin: 01/18/17 21:02 Dose: 7.729 mls/hr Insulin Human Regular (Humulin R Low) 0 units SC ACHS [facility] PRN Reason: Protocol Last Admin: 01/19/17 07:53 Dose: Not Given Losartan Potassium (Co[facility]ar) [facility] [place] Last Admin: 01/18/17 10:30 Dose: 25 mg Magnesium Oxide (Mag-Ox) 400 mg PO QAM [facility] Last Admin: 01/18/17 10:31 Dose: 400 mg Pantoprazole Sodium (Protonix Ec Tab) 40 mg PO QAM [facility] Last Admin: 01/18/17 10:30 Dose: 40 mg Polyethylene Glycol (Miralax) 17 gm PO BID PRN PRN Reason: Constipation - Labs Labs: 01/19/17 06:45 01/19/17 06:45 PT 11.7 Seconds (9.9-11.8) 01/16/17 13:00 INR 1.08 (0.93-1.08) 01/16/17 13:00 APTT 25.3 Seconds (23.7-30.8) 01/16/17 13:00 - Constitutional Appears: Well, No Acute Distress - Head Exam Head Exam: ATRAUMATIC, NORMOCEPHALIC - Eye Exam Eye Exam: EOMI, Normal appearance - ENT Exam ENT Exam: Mucous Membranes Dry Additional comments: on bipap - Respiratory Exam Respiratory Exam: Decreased Breath Sounds, Rhonchi. absent: Wheezes, Respiratory Distress Additional comments: on bipap - Cardiovascular Exam Cardiovascular Exam: REGULAR RHYTHM. absent: Tachycardia, Murmur - GI/Abdominal Exam GI & Abdominal Exam: Distended, Soft, Tenderness, Hernia, Normal Bowel Sounds. absent: Firm, Guarding - Extremities Exam Extremities Exam: Pedal Edema Additional comments: trace pitting edema - Neurological Exam Neurological Exam: Alert, Awake, Oriented x3 - Skin Skin Exam: Dry, Intact, Normal Color, Warm Assessment and Plan - Assessment and Plan (Free Text) Assessment: 46 yo male with PMH of DM, HTN, CKD, CAD, KARON presented with progressively worsening SOB due to CHF exacerbation and respiratory acidosis. CXR showed diffuse infiltrates and vascular congestion, pulm edema. Patient was on bipap since admission with small breaks to eat. ABG from this morning has improved. Plan: 1. respiratory acidosis - ABG this morning has improved pH of 7.28 and pCO2 of 62 - bipap setting, IPAP 24, EPAP 10, rate 18 - repeat ABG in AM - cont lasix to 80 IV q8 - cont milirnone 20 - per nephrology will hold off on HD and continue to diuresis with IV lasix - pulm following, Dr. Tom 2. CHF exacerbation with SOB and anasarca - CXR showed diffuse infiltrates and vascular congestion, pulm edema. - cont abx ceftriaxone and azithromycin for possible pna - cont lasix to 80 IV q8 - cont on milirnone 20 - valdes to monitor strict I&O, output 1800 over past 24 hours - will cont bipap - patient states he will have family bring his cpap from home - patient on O2 3L while not on bipap - cardio following, Dr. Minor - pulnixon following, Dr. Tom - nephro following - per nephrology will hold off on HD and continue to diuresis with IV lasix - per surgery AV fistula will be done outpatient - IR consulted for possible pleural effusion tap 3. CKD - appears be near baseline - valdes to moniotr strict I&O, output 1800 over 24 hours - cont lasix to 80 IV q8 - cont on milirnone 20 - per nephrology will hold off on HD and continue to diuresis with IV lasix - cont to monitor - cont home med calcitriol - Will hold off on permacath placement per nephro, no immediate plans for HD - per surgery AV fistula will be done outpatient 4. anemia - below baseline, stable from yesterday - cont home med feosol - cont to monitor - senior abap developer consulted, recommend starting epogen 5. hyperkalemia - this AM 4.9 - cont to monitor - patient is CKD will hold any medications unless greatly elevated - nephro following 6.HTN - cont home meds coreg, hydralazine, losartan 7. DM - ISSS- low - finger sticks ACHS ppx - GI ppx protonix - DVT ppx heparin <Adrian Lang - Last Filed: 02/22/17 09:38> Objective - Vital Signs/Intake and Output Vital Signs (last 24 hours): Temp Pulse Resp BP Pulse Ox 98.0 F 59 L 18 140/70 97 01/30/17 08:00 01/30/17 08:00 01/30/17 08:00 01/30/17 09:31 01/30/17 08:00 - Labs Labs: 01/30/17 11:20 01/30/17 11:20 PT 11.7 Seconds (9.9-11.8) 01/16/17 13:00 INR 1.08 (0.93-1.08) 01/16/17 13:00 APTT 25.3 Seconds (23.7-30.8) 01/16/17 13:00 Attending/Attestation - Attestation I have personally seen and examined this patient.: Yes I have fully participated in the care of the patient.: Yes I have reviewed all pertinent clinical information, including history, physical exam and plan: Yes Notes (Text): 02/22/17 09:37 Medical record note made by the resident after discussion with my direction and input after the patient was personally seen and examined by me. I have reviewed the chart and agree that the record accurately reflects by personal performance of the history, physical exam, data review, and medical decision-making, in the course for the patient. I have also personally directed the plan of care.
--- NOTE | 2017-01-19 09:30 | PN ---
DATE: 01/19/2017 The patient was seen and examined at bedside. He is wearing his BiPAP. He is compliant with BiPAP. He is lethargic, but not in acute distress. He was admitted with exacerbation of chronic congestive heart failure, anasarca, hypercapnic respiratory failure. PHYSICAL EXAMINATION: VITAL SIGNS: His temperature is 97.9, pulse 84, respirations 20-25, pulse oximetry is 95% on BiPAP, blood pressure is 170/70. LABORATORY DATA: I reviewed today's blood work. His pCO2 is 62. His pO2 is 91 and pH improved to 7 .28. HEAD, EARS, NOSE AND THROAT: Within normal limits. NECK: Supple with no jugular vein distention. CHEST: Symmetrical. HEART: S1, S2. S3 gallop present. LUNGS: Diminished breath sounds bilaterally with few basal crackles. No wheezing. GASTROINTESTINAL: Abdomen soft, nontender with no organomegaly. GENITOURINARY: No external genitalia abnormalities. EXTREMITIES: 1+ pedal edema. ASSESSMENT: 1. Hypercarbic respiratory failure. 2. Congestive heart failure. 3. Anasarca. 4. Carbon dioxide retention. 5. Combined acidosis. PLAN: The patient has improved clinically. From the review of his arterial blood gases, his pH impr lydia to 7.28 and pCO2 improved as well. He is oxygenating well. His white count currently is 7.0 an d hemoglobin of 8.9. We will keep him on current BiPAP settings of 25/10 for naps and definitely ove rnight. He can take BiPAP during the day for meals. We will follow closely. The patient's conditio n is still critical. Cardiology input is appreciated. Preston Nix MD cc: [id number] TT: 01/19/2017 09:29:55 Confirmation # [id number] Dictation # [id number]
[2017-01-19] MEDS: cefTRIAXone 1 gm 100 ML IVPB SCH (10:24)
[2017-01-19] MEDS: Pantoprazole 40 mg EC Tab PO SCH (10:29)
[2017-01-19] MEDS: Magnesium Oxide 400 mg Tab UD PO SCH (10:30)
[2017-01-19] MEDS: Milrinone 20mg/100ml D5W 100 ML IV PRN ×2 (10:34→23:51)
--- NOTE | 2017-01-19 11:32 | CP.PCM.PN ---
<Annalee Kennedy - Last Filed: 01/19/17 11:29> Subjective - Date & Time of Evaluation Date of Evaluation: 01/19/17 Time of Evaluation: 10:00 - Subjective Subjective: General/Vascular Surgery Dr. Rodriguez Pt S&E @bedside. NAEO. admits to SOB. denies CP, N/V. tolerating diet. Objective - Vital Signs/Intake and Output Vital Signs (last 24 hours): Temp Pulse Resp BP Pulse Ox 97.9 F 80 20 131/57 L 95 01/19/17 06:00 01/19/17 10:30 01/19/17 06:00 01/19/17 10:30 01/19/17 06:00 Intake and Output: 01/19/17 01/19/17 06:59 18:59 Intake Total 300 Output Total 950 Balance -650 - Medications Medications: Current Medications Aripiprazole (Abilify) 5 mg PO DAILY [facility] Last Admin: 01/19/17 10:29 Dose: 5 mg Aspirin (Ecotrin) 81 mg PO DAILY [facility] Last Admin: 01/19/17 10:29 Dose: 81 mg Calcitriol (Rocaltrol) 0.25 mcg PO QAM [facility] Last Admin: 01/19/17 10:29 Dose: 0.25 mcg Carvedilol (Coreg) 12.5 mg PO BID [facility] Last Admin: 01/19/17 10:30 Dose: 12.5 mg Ferrous Sulfate (Feosol) 324 mg PO QAM [facility] Last Admin: 01/19/17 10:30 Dose: 324 mg Furosemide (Lasix) 80 mg IVP Q8 [facility] Last Admin: 01/19/17 06:50 Dose: 80 mg Heparin Sodium (Porcine) (Heparin) 5,000 units SC Q12 [facility] PRN Reason: Protocol Last Admin: 01/19/17 10:28 Dose: 5,000 units Hydralazine HCl (Apresoline) 25 mg PO TID [facility] Last Admin: 01/19/17 10:29 Dose: 25 mg Azithromycin (Zithromax 500mg In Ns) 250 mls @ 167 mls/hr IVPB DAILY [facility] PRN Reason: Protocol Last Admin: 01/18/17 10:53 Dose: 167 mls/hr Ceftriaxone Sodium (Rocephin 1 Gram Ivpb) 100 mls @ 100 mls/hr IVPB DAILY [facility] PRN Reason: Protocol Last Admin: 01/19/17 10:24 Dose: 100 mls/hr Milrinone Lactate/Dextrose (Primacor 20mg/100ml D5w) 100 mls @ 7.729 mls/hr IV .[id number] PRN; Protocol; 0.2 MCG/KG/MIN PRN Reason: TITRATE PER MD ORDER Last Admin: 01/19/17 10:34 Dose: 7.729 mls/hr Insulin Human Regular (Humulin R Low) 0 units SC ACHS [facility] PRN Reason: Protocol Last Admin: 01/19/17 07:53 Dose: Not Given Losartan Potassium (Cozaar) 25 mg PO QAM [facility] Last Admin: 01/19/17 10:30 Dose: 25 mg Magnesium Oxide (Mag-Ox) 400 mg PO QAM [facility] Last Admin: 01/19/17 10:30 Dose: 400 mg Pantoprazole Sodium (Protonix Ec Tab) [facility] [place] Admin: 01/19/17 10:29 Dose: 40 mg Polyethylene Glycol (Miralax) 17 gm PO BID PRN PRN Reason: Constipation - Labs Labs: 01/19/17 06:45 01/19/17 06:45 Laboratory Tests 01/19/17 06:45 Uric Acid 6.5 Calcium 8.1 L Total Bilirubin 0.2 AST 18 ALT 25 Alkaline Phosphatase 77 Total Protein 5.8 Albumin 3.0 Globulin 2.8 Microbiology 01/16/17 13:20 Urine Urine Culture - Final No Growth (<1,000 CFU/ML) 01/16/17 13:10 Blood-Venous Blood Culture - Preliminary 01/16/17 13:10 Blood-Venous NO GROWTH AFTER 48 HOURS 01/16/17 12:50 Blood-Venous Blood Culture - Preliminary 01/16/17 12:50 Blood-Venous NO GROWTH AFTER 48 HOURS - Constitutional Appears: Non-toxic, No Acute Distress - Head Exam Head Exam: NORMAL INSPECTION - Eye Exam Eye Exam: Normal appearance - ENT Exam ENT Exam: Mucous Membranes Moist - Respiratory Exam Respiratory Exam: NORMAL BREATHING PATTERN. absent: Accessory Muscle Use, Respiratory Distress Additional comments: BiPAP in place - GI/Abdominal Exam GI & Abdominal Exam: Distended (obese), Soft - Extremities Exam Extremities Exam: Normal Inspection - Neurological Exam Neurological Exam: Alert, Awake, Oriented x3 - Psychiatric Exam Psychiatric exam: Normal Affect, Normal Mood - Skin Skin Exam: Dry, Intact, Normal Color Assessment and Plan - Assessment and Plan (Free Text) Assessment: 46 y/o M presents w/ SOB 2/2 fluid overload with history of chronic kidney disease - Continue medical management - Recommend left arm alert for future AVF - no surgical intervention this admission. - outpatient follow-up for L-AVF Pt discussed w/ Dr. Jennifer Kennedy DO PGY1 <Dave Rodriguez - Last Filed: 01/27/17 22:51> Subjective - Date & Time of Evaluation Date of Evaluation: 01/19/17 Time of Evaluation: 13:05 Objective - Vital Signs/Intake and Output Vital Signs (last 24 hours): Temp Pulse Resp BP Pulse Ox 98.3 F 62 18 137/78 96 01/27/17 16:47 01/27/17 17:34 01/27/17 16:47 01/27/17 17:34 01/27/17 16:47 Intake and Output: 01/27/17 01/28/17 18:59 06:59 Intake Total 520 780 Output Total 800 1000 Balance -280 -220 - Medications Medications: Current Medications Albuterol/Ipratropium (Duoneb 3 Mg/0.5 Mg (3 Ml) Ud) 3 ml IH TIDRESP [facility] Last Admin: 01/27/17 19:58 Dose: 3 ml Amlodipine Besylate (Norvasc) 10 mg PO DAILY [facility] Last Admin: 01/27/17 09:47 Dose: 10 mg Aripiprazole (Abilify) 5 mg PO DAILY [facility] Last Admin: 01/27/17 09:43 Dose: 5 mg Aspirin (Ecotrin) 81 mg PO DAILY [facility] Last Admin: 01/27/17 09:42 Dose: 81 mg Bumetanide (Bumex) 3 mg PO BID [facility] Last Admin: 01/27/17 17:34 Dose: 3 mg Calcitriol (Rocaltrol) 0.25 mcg PO MWF [facility] Carvedilol (Coreg) 25 mg PO BID [facility] Last Admin: 01/27/17 17:34 Dose: 25 mg Ferrous Sulfate (Feosol) 324 mg PO QAM [facility] Last Admin: 01/27/17 09:42 Dose: 324 mg Heparin Sodium (Porcine) (Heparin) 5,000 units SC Q12 [facility] PRN Reason: Protocol Last Admin: 01/27/17 21:57 Dose: 5,000 units Hydralazine HCl (Apresoline) 50 mg PO TID [facility] Last Admin: 01/27/17 17:34 Dose: 50 mg Iron Sucrose 100 mg/ Sodium (Chloride) 105 mls @ 210 mls/hr IVPB DAILY [facility] Last Admin: 01/27/17 09:43 Dose: 210 mls/hr Insulin Human Regular (Humulin R Low) 0 units SC ACHS [facility] PRN Reason: Protocol Last Admin: 01/27/17 17:21 Dose: Not Given Losartan Potassium (Cozaar) 25 mg PO QAM [facility] Last Admin: 01/27/17 09:46 Dose: 25 mg Magnesium Oxide (Mag-Ox) 400 mg PO QAM [facility] Last Admin: 01/27/17 09:43 Dose: 400 mg Pantoprazole Sodium (Protonix Ec Tab) 40 mg PO QAM [facility] Last Admin: 01/27/17 09:42 Dose: 40 mg Polyethylene Glycol (Miralax) 17 gm PO BID [facility] Last Admin: 01/27/17 17:35 Dose: Not Given - Labs Labs: 01/27/17 08:00 01/27/17 07:40 PT 11.7 Seconds (9.9-11.8) 01/16/17 13:00 INR 1.08 (0.93-1.08) 01/16/17 13:00 APTT 25.3 Seconds (23.7-30.8) 01/16/17 13:00 Assessment and Plan - Assessment and Plan (Free Text) Assessment: Patient was seen and examined by me. I agree with assessment and plan as per resident's note.
[2017-01-19] MEDS: Azithromycin 500MG/NS 250ml 250 ML IVPB SCH (11:37)
--- NOTE | 2017-01-19 13:45 | PN ---
DATE: 01/19/2017 ROOM: 268, bed #2. REASON FOR CONSULTATION AND FOLLOWUP: Shortness of breath, inability to walk, coronary artery diseas e, congestive heart failure, morbid obesity, pulmonary hypertension. HISTORY OF PRESENT ILLNESS: The patient is a 46-year-old male with past medical history of morbid ob esity, severe pulmonary hypertension, chronic obstructive pulmonary disease, congestive heart failure , history of coronary artery disease, status post stent insertion, pulmonary hypertension, recent car diac catheterization done which revealed 2-vessel disease and severe pulmonary hypertension, admitted this time because of inability to walk and getting shortness of breath. The patient is on CPAP. He says his breathing is getting better. Denies any chest pain. PHYSICAL EXAMINATION: VITAL SIGNS: Blood pressure 131/57, respirations 20, pulse 80, patient is afebrile. HEAD: Normocephalic. EYES: Pupils normal. Conjunctivae are slightly pale. NECK: JVP low. Carotids equal. THORAX: AP diameter normal. LUNGS: No significant rales. CARDIOVASCULAR: S1, S2. ABDOMEN: Markedly protuberant, no organomegaly. EXTREMITIES: No clubbing, no cyanosis. LABORATORY DATA: WBC 7.0, hemoglobin 8.9, hematocrit 28.8, platelets 189. Sodium 140, potassium 4.9 , BUN 47, creatinine 4.3, glucose 88. Uric acid 6.5, calcium 8.1. AST, ALT normal. Total protein a nd albumin normal. DIAGNOSES: Morbid obesity, body mass index 43.2 kg/m2, diabetes, hypertension, hyperlipidemia, chron ic renal insufficiency, stage IV-V, creatinine clearance 14 mL an hour, obstructive sleep apnea, eugene nary artery disease, severe pulmonary hypertension. Cardiac catheterization in 12/2016 showed LV ejec tion fraction 45%-50%. EDP was in the range of 20-25, left anterior descending 70% stenosis and [place] s intermedius 70% stenosis. RECOMMENDATIONS: Because of his coronary artery disease, has not angioplasty because patient will en d up on dialysis due to renal function because of dye load. It was decided to treat him medically fo r the present time. The patient on Abilify 5 mg p.o. daily, hydralazine 25 mg t.i.d., Coreg 12.5 b.i .d., Cozaar 25 mg daily, aspirin 81 mg daily, ferrous sulfate 324 mg p.o. daily, heparin 5000 units s ubQ q. 12 hours, insulin as ordered, furosemide 80 mg IV q. 12 hours, mag oxide 400 mg p.o. daily, mi lrinone 20 mg in 100 mL D5W running at 0.2 mcg per kg per minute drip, Protonix 40 daily, Rocephin 1 g IV daily, azithromycin 250 mg IV daily. We will continue present therapy and we will follow with patel finnegan. Lisa Lei MD cc: [id number] TT: 01/19/2017 13:44:37 Confirmation # [id number] Dictation # [id number]
--- NOTE | 2017-01-19 14:31 | CON ---
DATE: 01/19/2017 HISTORY OF PRESENT ILLNESS: A 46-year-old male with history of diabetes, hypertension, morbid obesit y on CPAP, admitted with congestive heart failure exacerbation. The patient reports breathing is imp roved at times. PHYSICAL EXAMINATION: VITAL SIGNS: Blood pressure 131/57, heart rate of 80, respiration rate 20, O2 sat 95% on BiPAP. GENERAL: The patient with difficulty getting himself out of bed to stand. Otherwise, no apparent di stress, able to speak in complete sentences. NECK: Large neck circumference. CHEST: Markedly decreased breath sounds over right lung hopkins. Left side clear. HEART: S1, S2 positive. No rubs, no murmurs, no gallops. ABDOMEN: Soft. Ventral hernia present just lateral to midline, tender to palpation. EXTREMITIES: Bilateral leg edema extending to the lower abdomen, overall improved. WEIGHT: Today 283 pounds, down from 289.6 pounds yesterday and 291.7 pounds the day before. ASSESSMENT: 1. Congestive heart failure exacerbation secondary to mild systolic dysfunction as well as markedly low GFR, responding well to diuretics, as well as addition of inotropic agent milrinone. Has lost ab out 6-1/2 pounds over a 24-hour period. We will decrease Lasix frequency to 80 mg IV q. 12 hours. G oal is to be no more than 2-3 pounds of weight loss per day. 2. Chronic kidney disease stage V. Serum creatinine relatively stable. Likely helped by addition o f inotropic agent. 3. Mild hyperkalemia also improved with potassium 4.9 today. Discussed with primary attending our p kade of having patient initiate dialysis via either an AV fistula or AV graft due to our concern for c atheter infection and loss of vascular access sites with a catheter. No urgent need for dialysis at this time, but will likely need to start within the next few months. We will need higher dose of Las ix as an outpatient, i.e., at least 80 mg p.o. b.i.d., which should be started before the patient dolly ves to assess response. 4. Hypertension. Blood pressure currently controlled on Coreg 12.5 mg b.i.d., hydralazine 25 mg t.i .d. and losartan 25 mg daily as well as diuretics. Continue the same. 5. Hypercapnic respiratory failure, improved on BiPAP with pCO2 decreasing from 72 yesterday to 62 w ith inadequate renal metabolic compensation in the setting of advanced renal failure. 6. Vascular access. Need to consult vascular surgeon to set up outpatient AV fistula/AV graft place ment. 7. Anemia. Check iron studies. 8. Chronic kidney diseases, mineral bone disease, on calcitriol 0.25 mcg daily. We will check PTH l evel. Chester Perez MD cc: [id number] TT: 01/19/2017 14:31:38 Confirmation # [id number] Dictation # [id number]
[2017-01-20] MEDS: Insulin Reg-LOW-Coverage SC SCH ×4 (07:57→22:15)
[2017-01-20 08:06] LABS: ADD MANUAL DIFF? NO
[2017-01-20 08:24] LABS: BASO # 0.01 K/mm3 (0.0-2.0); BASO % 0.2 % (0.0-3.0); EOS # 0.1 (0.0-0.7); EOS % 1.7 % (1.5-5.0); GRAN # 4.23 (1.4-6.5); GRAN % 72.8 % (50.0-68.0); HEMATOCRIT 26.2 % (42.0-52.0); LYMPH # 0.8 (1.2-3.4); LYMPH % 13.8 % (22.0-35.0); MEAN CELL VOLUME 87.6 fL (80.0-105.0); MEAN CORPUSCULAR HEMOGLOBIN 28.1 pg (25.0-35.0); MEAN CORPUSCULAR HGB CONC 32.1 g/dl (31.0-37.0); MEAN PLATELET VOLUME 10.1 fl (7.0-11.0); MONO # 0.7 (0.1-0.6); MONO % 11.5 % (1.0-6.0); PLATELET COUNT 173 10^3/uL (120.0-450.0); RED CELL DISTRIBUTION WIDTH 15.9 % (11.5-14.5); WHITE BLOOD COUNT 5.8 10^3/ul (4.5-11.0)
[2017-01-20 08:32] LABS: BILIRUBIN,TOTAL 0.3 mg/dL (0.2-1.3); CALCIUM 8.2 mg/dL (8.4-10.5); POTASSIUM 4.3 mmol/L (3.6-5.0); TOTAL PROTEIN 5.8 g/dL (5.8-8.3)
[2017-01-20 08:51] LABS: IRON 26 ug/dL (45-180)
[2017-01-20] MEDS: Pantoprazole 40 mg EC Tab PO SCH (10:50)
[2017-01-20] MEDS: cefTRIAXone 1 gm 100 ML IVPB SCH (10:50)
[2017-01-20] MEDS: Magnesium Oxide 400 mg Tab UD PO SCH (10:50)
[2017-01-20] MEDS: Azithromycin 500MG/NS 250ml 250 ML IVPB SCH (10:51)
--- NOTE | 2017-01-20 11:29 | PN ---
DATE: 01/20/2017 I saw him sitting up in bed. His mother is present at this time. He has got oxygen on. Multiple IV drips are running. He is comfortable. He has no chest pain or shortness of breath. No abdominal pain. He is eating. The legs are less swollen. He was short of breath when he came in. That has improved. He is not sure which way he is going as far as dialysis or not. PHYSICAL EXAMINATION: VITAL SIGNS: He has 97.2 temp, 86 pulse, 171/75 blood pressure, 18 respiratory rate, 95% O2 sat on BiPAP. HEAD: Atraumatic, normocephalic. Throat is moist. NECK: Supple. HEART: Regular rate. LUNGS: Decreased breath sounds bilaterally but fairly clear. ABDOMEN: Morbidly obese. He has a ventral hernia. No tenderness. Positive bowel sounds. No guarding, no rebound, no CVA tenderness. EXTREMITIES: Have +1 edema. It is definitely improved than when he came in. His weight is down to 283. He was over 290 when he came in. He has congestive heart failure, chronic kidney disease stage V, electrolyte imbalance with potassium levels being elevated at times, hypertension, pulmonary hypertension, hypercapnia. He has anemia, chronic kidney disease, obstructive sleep apnea, high cholesterol. MEDICATIONS: He is currently on Abilify, Apresoline, Coreg, Cozaar, Ecotrin, iron, heparin, insulin, Lasix 80 IV q. 12, magnesium oxide, MiraLax. He is on Primacor IV drip, Protonix, Rocephin and azithromycin. He is being seen by cardiology, pulmonology. ASSESSMENT AND PLAN: I believe renal is involved. We will continue with aggressive treatment and care. We will check his labs tomorrow. I encouraged him to get out of bed, eat healthy, continue with the medication, and we will keep a close eye on his kidney function, his hemoglobin. He might need to be transfused. David Ryan DO cc: [id number] TT: 01/20/2017 11:28:02 Confirmation # [id number] Dictation # [id number]
--- NOTE | 2017-01-20 11:34 | PN ---
DATE: 01/20/2017 The patient was seen and examined at bedside. Currently, he is off BiPAP. He is not in respiratory distress. He states he feels more comfortable with less shortness of breath. There is some peripheral edema noted still. PHYSICAL EXAMINATION: VITAL SIGNS: Pulse 86, respirations 18, pulse oximetry is 95% on BiPAP. His intake and output is negative 1900. HEAD: Normocephalic and atraumatic. NECK: Supple with no jugular vein distention. CHEST: Symmetrical. HEART: S1, S2. No S3. Irregular. LUNGS: Diminished breath sounds at both bases with few rhonchi. No wheezing. GASTROINTESTINAL: Abdomen soft, obese. No organomegaly. EXTREMITIES: 1+ edema. SKIN: Clear with no cyanosis, no skin rashes. NEUROLOGIC: No focal deficits. His electrolytes are normal. WBCs 5.8, hemoglobin is reduced to 8.4. These are today's results. PLAN: The patient is improving with aggressive treatment of congestive heart failure. From a respiratory standpoint, he is tolerating high pressure BiPAP. He most likely suffers from very severe obstructive sleep apnea as well as morbid obesity. Application of BiPAP continuously at night and naps will be necessary, even upon patient's discharge. I will discuss it with Dr. Tom. In the interim, the patient is improving. Preston Nix MD cc: [id number] TT: 01/20/2017 11:34:31 Confirmation # [id number] Dictation # [id number] [id number]
--- NOTE | 2017-01-20 12:27 | PN ---
DATE: 01/20/2017 A 46-year-old male with history of diabetes, hypertension, morbid obesity, KARON on CPAP, CAD, CKD IV/V admitted with CHF exacerbation. The patient reports that his breathing is "so-so." When pressed abo ut this, he denies having any improvement in breathing. He denies feeling that his legs are any ligh ter than when he came in. PHYSICAL EXAMINATION: VITAL SIGNS: Blood pressure 199/102, heart rate of 79, respirations 20, O2 sat 95% on nasal cannula, temperature 97.2 earlier this morning. GENERAL: The patient in no distress, able to speak in full sentences coherently. HEENT: Large neck circumference. Moist mucous membranes. LUNGS: Decreased breath sounds over right lung hopkins but improved. HEART: S1, S2 normal, no murmurs, no gallops. ABDOMEN: Soft, nondistended. Left-sided ventral hernia appreciated. EXTREMITIES: Moderate leg edema extending to the thighs and lower abdominal wall. Overall, improved . Good capillary refill. ASSESSMENT: 1. Congestive heart failure exacerbation secondary to mild systolic dysfunction as well as markedly low GFR. Had been responding well to diuretics on Lasix IV push 80 mg q. 8 hours, decreased to q. 12 hours yesterday with increase in weight seen. The patient's weight yesterday was 283 pounds. Today standing scale weight, 285.2 pounds. The patient likely needs 3 times a day diuretic dosing. We wi ll attempt to transition to p.o. diuretics. We will continue Lasix 80 IV q. 12 hours and intersperse in between Bumex 2 mg p.o. and monitor response. 2. Chronic kidney disease V. Serum creatinine relatively stable, likely due to diabetic nephropathy, relatively stable electrolyte status, hyperkalemia improved, volume status addressed above. No need to initiate dialysis at this point. 3. Hypertension. Blood pressure uncontrolled. Currently on Coreg 12.5 mg b.i.d., hydralazine 25 mg t.i.d., losartan 25 mg daily as well as diuretics. We will increase Coreg to 25 mg b.i.d. 4. Hypercapnic respiratory failure, improved on bilevel positive airway pressure with inadequate ezequiel al metabolic compensation in the setting of advanced renal failure. 5. Vascular access. Need to consult vascular surgeon to set up outpatient arteriovenous fistula, ar teriovenous graft placement trying to avoid initiation of dialysis with a catheter as catheters are n otorious for infection and for loss of future access sites, particularly important in a relatively yo krishan patient. 6. Anemia, iron deficient on p.o. iron. Received a dose of darbepoetin recently. Would likely bene fit from intravenous iron. 7. Chronic kidney disease, mineral bone disease on calcitriol 0.25 mcg daily. Awaiting PTH level. Chester Perez MD cc: [id number] TT: 01/20/2017 12:26:34 Confirmation # [id number] Dictation # [id number] mn
--- NOTE | 2017-01-20 13:34 | PN ---
DATE: 01/20/2017 The patient in room 268, bed 2. REASON FOR CONSULTATION AND FOLLOWUP: Shortness of breath, inability to walk, coronary artery diseas e, congestive heart failure, morbid obesity, pulmonary hypertension. HISTORY OF PRESENT ILLNESS: The patient is a 46-year-old male with past medical history of morbid ob esity, severe pulmonary hypertension, chronic obstructive pulmonary disease, congestive heart failure , history of coronary artery disease status post stent insertion, pulmonary hypertension, recent card iac catheterization done which revealed 2-vessel coronary artery disease with severe pulmonary hypert ension. Admitted now off because of inability to walk and getting shortness of breath on minimal exe rtion. The patient's breathing is getting better. Denies chest pain, palpitation. PHYSICAL EXAMINATION: VITAL SIGNS: Blood pressure 131/72, respirations 20, pulse 79, temperature 98. Earlier pressure was 199/102. HEAD: Normocephalic. EYES: Pupils normal. Conjunctivae slightly pale. NECK: JVP low. Carotid equal. THORAX: AP diameter normal. LUNGS: No significant rales. CARDIOVASCULAR: S1, S2. ABDOMEN: Marked protuberant, no organomegaly. EXTREMITIES: No clubbing, no cyanosis. LABORATORY DATA: WBCs 5.8, hemoglobin 8.4, hematocrit 26.2, platelets 173. Sodium 139, potassium 4. 3, BUN 47, creatinine 4.4. AST, ALT normal. Total protein 5.8, albumin 2.9. DIAGNOSES: Morbid obesity, body mass index 43.2 kg/meters squared, diabetes, hypertension, hyperlipi demia, chronic renal insufficiency stage IV-V, creatinine clearance 14 mL an hour, obstructive sleep apnea, coronary artery disease, severe pulmonary hypertension. Cardiac catheterization 12/2016 showed left ventricular ejection fraction 45%-50%, end diastolic pressure was in the range of 20-25, left a nterior descending 70% stenosis, ramus intermedius 70% stenosis. PLAN: The patient could not have angioplasty done because of dye load, worried about going into rivera l failure further and going into dialysis decided to treat him medically at the present time. The patient on hydralazine 25 mg t.i.d., Bumex 2 mg p.o. daily, Coreg 12.5 b.i.d., losartan 25 daily, aspirin 81 mg daily, ferrous sulfate 324 mg daily, heparin 5000 units subQ q. 12 hours, milrinone 0. 2 mcg per kg per minute drip, Protonix 40 daily, azithromycin 500 mg IV daily. We will continue pres ent therapy and we will repeat chest x-ray in the morning to see improvement of his congestive heart failure. We will follow with you. Lisa Lei MD cc: [id number] TT: 01/20/2017 13:34:05 Confirmation # [id number] Dictation # [id number] en
--- NOTE | 2017-01-20 16:09 | RAD ---
PROCEDURE: CHEST RADIOGRAPH, 1 VIEW HISTORY: Compare to see improvement of CHF. COMPARISON: 01/16/2017 FINDINGS: LUNGS: Improvement in interstitial infiltrates. PLEURA: Slight improvement in right pleural effusion. CARDIOVASCULAR: Cardiomegaly. OSSEOUS STRUCTURES: No significant abnormalities. VISUALIZED UPPER ABDOMEN: Normal. OTHER FINDINGS: None. IMPRESSION: Slight improvement in CHF.
[2017-01-21] MEDS: Milrinone 20mg/100ml D5W 100 ML IV PRN ×2 (05:15→19:43)
[2017-01-21 06:51] LABS: ADD MANUAL DIFF? NO
[2017-01-21 07:11] LABS: BILIRUBIN,TOTAL 0.4 mg/dL (0.2-1.3); CALCIUM 8.2 mg/dL (8.4-10.5); POTASSIUM 4.5 mmol/L (3.6-5.0); TOTAL PROTEIN 5.9 g/dL (5.8-8.3)
[2017-01-21 07:14] LABS: BASO # 0.01 K/mm3 (0.0-2.0); BASO % 0.2 % (0.0-3.0); EOS # 0.1 (0.0-0.7); EOS % 1.6 % (1.5-5.0); GRAN % 71.4 % (50.0-68.0); LYMPH # 0.9 (1.2-3.4); LYMPH % 16.3 % (22.0-35.0); MEAN CELL VOLUME 87.5 fL (80.0-105.0); MEAN CORPUSCULAR HEMOGLOBIN 28.6 pg (25.0-35.0); MEAN CORPUSCULAR HGB CONC 32.7 g/dl (31.0-37.0); MEAN PLATELET VOLUME 9.8 fl (7.0-11.0); MONO # 0.6 (0.1-0.6); MONO % 10.5 % (1.0-6.0); PLATELET COUNT 193 10^3/uL (120.0-450.0); RED CELL DISTRIBUTION WIDTH 15.8 % (11.5-14.5); WHITE BLOOD COUNT 5.6 10^3/ul (4.5-11.0)
--- NOTE | 2017-01-21 07:44 | PN ---
DATE: 01/21/2017 SUBJECTIVE: The patient appears comfortable this morning. He is not short of breath at rest. PHYSICAL EXAMINATION: VITAL SIGNS: Temperature is 97.6, pulse 81, respirations 18/20, blood pressure 153/77, oxygen saturation on BiPAP is 93%-95%. HEENT: Normocephalic, atraumatic. Positive JVD. CARDIOVASCULAR: Positive S1, S2, positive S3 gallop. LUNGS: Less crackles at the bases. No rhonchi. No wheezing. EXTREMITIES: Less edema. No cyanosis, no clubbing. Calves are nontender to palpation. GASTROINTESTINAL: Abdomen is soft, nontender, nondistended. Bowel sounds are positive. SKIN: No acute rash. NEUROLOGIC: Limited at the present time. PERTINENT LABORATORY DATA: Chest x-ray was repeated yesterday and reviewed. There is a definite decrease in the pulmonary edema changes. Last arterial blood gas(in the computer) -- believed to be on BiPAP -- pH 7.28, pCO2 62, pO2 of 91. IMPRESSION: 1. Recurrent congestive heart failure. 2. Dilated cardiomyopathy. 3. Coronary artery disease. 4. Respiratory failure. 5. Obstructive sleep apnea. 6. Worsening renal dysfunction. PLAN: The patient appears very comfortable this morning. He is not short of breath at rest. He states he is feeling much better overall. I did review the last x-ray -- as above. The last x-ray is significantly improved-- with decreased pulmonary edema changes. I have also reviewed the last arterial blood gas. The last arterial blood gas is also improved-- with a decrease in the respiratory acidosis, and a decrease in the alveolar-arterial gradient. I will continue with the BiPAP for now. Another arterial blood gas is ordered for this morning -- not done yet. I would continue with the diuresis as per renal and cardiology. Inputs are noted. The patient remains on antibiotic therapy -- which we can probably discontinued in the near future. There are no temperatures noted. There is no leukocytosis. Clinical status of the patient is significantly improved -- compared to last week. However, again, the overall status/prognosis of this patient does remain guarded. I will discuss the above with the attending physician. Kem Karpman MD cc: [id number] TT: 01/21/2017 07:43:29 Confirmation # [id number] Dictation # [id number] en MTDD
[2017-01-21] MEDS: Insulin Reg-LOW-Coverage SC SCH ×4 (08:13→22:58)
--- NOTE | 2017-01-21 09:39 | CP.PCM.PN ---
<Kailee Mcgregor - Last Filed: 01/21/17 13:25> Subjective - Date & Time of Evaluation Date of Evaluation: 01/21/17 Time of Evaluation: 09:36 - Subjective Subjective: PGY-1 Medicine progress note Patient was seen and examined at bedside. No acute distress.Nurse reports not event overnight, patient was on bipap throughout the night. Patient states his breathing has improved. He conts to have abdominal pain with pressure from his abdominal hernia. Patient states that he has not had BM while in the hospital. He denies headache, fever, dizziness, n/v. Objective - Vital Signs/Intake and Output Vital Signs (last 24 hours): Temp Pulse Resp BP Pulse Ox 97.6 F 81 20 153/77 H 93 L 01/21/17 05:46 01/21/17 05:48 01/21/17 05:46 01/21/17 05:46 01/21/17 05:46 Intake and Output: 01/21/17 01/21/17 06:59 18:59 Intake Total 92 Balance 92 - Medications Medications: Current Medications Aripiprazole (Abilify) 5 mg PO DAILY [facility] Last Admin: 01/20/17 10:53 Dose: 5 mg Aspirin (Ecotrin) 81 mg PO DAILY [facility] Last Admin: 01/20/17 10:50 Dose: 81 mg Bumetanide (Bumex) 2 mg PO DAILY@1400 [facility] Last Admin: 01/20/17 14:07 Dose: 2 mg Calcitriol (Rocaltrol) 0.25 mcg PO QAM [facility] Last Admin: 01/20/17 10:50 Dose: 0.25 mcg Carvedilol (Coreg) 12.5 mg PO BID [facility] Last Admin: 01/20/17 17:20 Dose: 12.5 mg Ferrous Sulfate (Feosol) 324 mg PO QAM [facility] Last Admin: 01/20/17 10:50 Dose: 324 mg Furosemide (Lasix) 80 mg IVP Q12H [facility] Last Admin: 01/21/17 05:16 Dose: 80 mg Heparin Sodium (Porcine) (Heparin) 5,000 units SC Q12 [facility] PRN Reason: Protocol Last Admin: 01/20/17 21:19 Dose: 5,000 units Hydralazine HCl (Apresoline) 25 mg PO TID [facility] Last Admin: 01/20/17 17:19 Dose: 25 mg Azithromycin (Zithromax 500mg In Ns) 250 mls @ 167 mls/hr IVPB DAILY [facility] PRN Reason: Protocol Last Admin: 01/20/17 10:51 Dose: 167 mls/hr Ceftriaxone Sodium (Rocephin 1 Gram Ivpb) 100 mls @ 100 mls/hr IVPB DAILY [facility] PRN Reason: Protocol Last Admin: 01/20/17 10:50 Dose: 100 mls/hr Milrinone Lactate/Dextrose (Primacor 20mg/100ml D5w) 100 mls @ 7.729 mls/hr IV .[id number] PRN; Protocol; 0.2 MCG/KG/MIN PRN Reason: TITRATE PER MD ORDER Last Admin: 01/21/17 05:15 Dose: 7.729 mls/hr Insulin Human Regular (Humulin R Low) 0 units SC ACHS [facility] PRN Reason: Protocol Last Admin: 01/21/17 08:13 Dose: Not Given Losartan [facility]ar) [facility] Last Admin: 01/20/17 10:49 Dose: 25 mg Magnesium Oxide (Mag-Ox) 400 mg PO QAM [facility] Last Admin: 01/20/17 10:50 Dose: 400 mg Pantoprazole Sodium (Protonix Ec Tab) [facility] [place] Last Admin: 01/20/17 10:50 Dose: 40 mg Polyethylene Glycol (Miralax) 17 gm PO BID PRN PRN Reason: Constipation - Labs Labs: 01/21/17 06:30 01/21/17 06:30 PT 11.7 Seconds (9.9-11.8) 01/16/17 13:00 INR 1.08 (0.93-1.08) 01/16/17 13:00 APTT 25.3 Seconds (23.7-30.8) 01/16/17 13:00 - Constitutional Appears: Well, No Acute Distress - Head Exam Head Exam: ATRAUMATIC, NORMOCEPHALIC - Eye Exam Eye Exam: Normal appearance - ENT Exam ENT Exam: Mucous Membranes Moist - Respiratory Exam Respiratory Exam: Decreased Breath Sounds, Clear to Ausculation Bilateral, Wheezes, NORMAL BREATHING PATTERN. absent: Respiratory Distress - Cardiovascular Exam Cardiovascular Exam: REGULAR RHYTHM. absent: Tachycardia, Murmur - GI/Abdominal Exam GI & Abdominal Exam: Distended, Soft, Hernia, Normal Bowel Sounds. absent: Firm , Guarding, Rigid, Tenderness - Extremities Exam Extremities Exam: Normal Inspection. absent: Pedal Edema - Neurological Exam Neurological Exam: Alert, Awake, Oriented x3 - Skin Skin Exam: Dry, Intact, Normal Color, Warm Assessment and Plan - Assessment and Plan (Free Text) Assessment: 46 yo male with PMH of DM, HTN, CKD, CAD, KARON presented with progressively worsening SOB and anasarca due to CHF exacerbation and respiratory acidosis. CXR showed diffuse infiltrates and vascular congestion, pulm edema. repeat cxr shows slight improvement in CHF. Patient was on bipap. ABG from this morning has improved, pH 7.3. Will transfuse 1 unit RBC. Plan: 1. respiratory acidosis- improved - ABG has improved, pH within normal limits - cont bipap setting, IPAP 24, EPAP 10, rate 18 - repeat ABG in AM - decreased lasix to 80 IV q12 - cont milirnone 20 - per nephrology will hold off on HD and continue to diuresis with IV lasix - pulnixon following, Dr. Tom 2. CHF exacerbation with SOB and anasarca - CXR showed diffuse infiltrates and vascular congestion, pulm edema. - repeat CXR shows improvement - cont abx ceftriaxone and azithromycin for possible pna - infection less likely due to neg cultures, no leukocytosis, fever - decreased lasix to 80 IV q12 - cont on milirnone 20 - valdes to monitor strict I&O, output 1800 over past 24 hours - will cont bipap - patient states he will have family bring his cpap from home - patient on O2 3L while not on bipap - cardio following, Dr. Minor - pulnixon following, Dr. Tom - nephro following - per nephrology will hold off on HD and continue to diuresis with IV lasix - per surgery AV fistula will be done outpatient - IR consulted for possible pleural effusion tap - transfuse 1 unit RBC with lasix 40 3. CKD - appears be near baseline - valdes to monitor strict I&O, output 1900 over 24 hours - decrease lasix to 80 IV q12 - cont on milirnone 20 - per nephrology will hold off on HD and continue to diuresis with IV lasix - cont to monitor - cont home med calcitriol - Will hold off on permacath placement per nephro, no immediate plans for HD - per surgery AV fistula will be done outpatient 4. anemia - below baseline, stable from yesterday - cont home med feosol - cont to monitor - tandem mill roller consulted - transfuse 1 unit RBC with lasix 40 - consider starting epogen 5. hyperkalemia - this AM 4.5 - cont to monitor - patient is CKD will hold any medications unless greatly elevated - nephro following 6.HTN - cont home meds coreg, hydralazine, losartan 7. DM - ISSS- low - finger sticks ACHS ppx - GI ppx protonix - DVT ppx heparin <Nicholas Garcia - Last Filed: 02/27/17 10:44> Objective - Vital Signs/Intake and Output Vital Signs (last 24 hours): Temp Pulse Resp BP Pulse Ox 98.0 F 59 L 18 140/70 97 01/30/17 08:00 01/30/17 08:00 01/30/17 08:00 01/30/17 09:31 01/30/17 08:00 - Labs Labs: 01/30/17 11:20 01/30/17 11:20 PT 11.7 Seconds (9.9-11.8) 01/16/17 13:00 INR 1.08 (0.93-1.08) 01/16/17 13:00 APTT 25.3 Seconds (23.7-30.8) 01/16/17 13:00 Attending/Attestation - Attestation I have personally seen and examined this patient.: Yes I have fully participated in the care of the patient.: Yes I have reviewed all pertinent clinical information, including history, physical exam and plan: Yes Notes (Text): 02/27/17 10:44 Medial record note done by resident after patient personally seen and examined by me. I have reviewed the chart and agree that the record accurately reflects my personal evaluation, data review, and course for the patient.
[2017-01-21 10:02] LABS: ARTERIAL BLOOD GAS HCO3 30.6 mmol/L (21-28); ARTERIAL BLOOD GAS O2 CAPACITY 10.9 mL/dl (16-24); ARTERIAL BLOOD GAS O2 CONTENT 10.7 ML/dl (15-23); ARTERIAL BLOOD GAS PH 7.37 (7.35-7.45); ARTERIAL BLOOD HGB O2 SAT 95.9 % (95.0-98.0); CARBOXYHEMOGLOBIN 1.9 % (0.5-1.5); HHB 1.7 % (0-5); METHEMOGLOBIN 0.5 % (0.0-3.0)
[2017-01-21] MEDS: Pantoprazole 40 mg EC Tab PO SCH (10:44)
[2017-01-21] MEDS: cefTRIAXone 1 gm 100 ML IVPB SCH (10:44)
[2017-01-21] MEDS: Magnesium Oxide 400 mg Tab UD PO SCH (10:44)
[2017-01-21] MEDS: POLYETHYLENE GLYCOL 3350 17 GM/Dose PACKET PO SCH ×2 (10:44→17:19)
--- NOTE | 2017-01-21 13:05 | PN ---
DATE: 01/21/2017 A 46-year-old male with history of diabetes, hypertension, morbid obesity, KARON on CPAP, CAD, CKD V, admitted with CHF exacerbation. The patient reports breathing is improved today. Reports feeling sleepy. Denies being lethargic. PHYSICAL EXAMINATION: VITAL SIGNS: Today, blood pressure 152/73, heart rate 88, respiration 20, O2 sat 93%. GENERAL: No apparent distress, slow in responding to questions. HEENT: Large neck circumference. Moist mucous membranes. CHEST: Decreased air movement on right, otherwise clear to auscultation bilaterally. HEART: S1, S2 positive. No murmurs, no gallops, no rubs. ABDOMEN: Soft, nondistended. Ventral hernia just left of midline noted. EXTREMITIES: Bilateral lower leg edema, moderate extending to thighs and lower abdomen. Normal capillary refill. ASSESSMENT: 1. Congestive heart failure exacerbation secondary to mild systolic dysfunction as well as markedly low GFR. Has been responding well to diuretics. Lasix changed to 80 mg intravenous q.12 hours with Bumex 2 mg p.o. added in between in an attempt to transition to p.o. diuretics. The patient's weight came down from 285.2 pounds yesterday to 281.3 pounds today on standing scale. At this point, the patient has lost approximately 10 pounds since admission last week. We will discontinue intravenous Lasix and increase Bumex 2 mg to q.8 hours. It should be noted that Bumex has good bioavailability compared to p.o. Lasix. Should also discuss with cardiology regarding discontinuing milrinone as patient appears overall improved and is not in overt failure. 2. Chronic kidney disease V, mild increase in serum creatinine today. Otherwise, relatively stable. Electrolytes stable. Hyperkalemia resolved. No indication to initiate dialysis at this point. 3. Hypertension. Blood pressure uncontrolled. Currently on Coreg 12.5 mg b.i.d., hydralazine 25 mg t.i.d., losartan 25 mg daily, Coreg 12.5 mg b.i.d. as well as diuretics as noted above. Should continue the same for now. Blood pressure should improve with further diuresis. 4. Hypercapnic respiratory failure. Hypercapnia significantly improved since presentation with pCO2 decreasing from 72 to 53 this morning, pH of 7.37 acceptable. Inadequate renal compensation in the setting of advanced chronic kidney disease noted. The patient needs to be adherent to continuous positive airway pressure therapy at home. 5. Vascular access. Vascular surgery consulted regarding setting up outpatient arteriovenous fistula. Vein mapping ordered. 6. Anemia, iron deficient on p.o. iron. Received ARMIN last week. Would benefit from intravenous iron infusion. 7. Chronic kidney disease, mineral bone disease. Still awaiting PTH level. Chester Perez MD cc: [id number] TT: 01/21/2017 13:05:27 Confirmation # [id number] Dictation # [id number] MTDBarbara
[2017-01-21] MEDS: Azithromycin 500MG/NS 250ml 250 ML IVPB SCH (13:23)
[2017-01-21] MEDS: Albuterol-Ipratrop 3 mg / 0.5 (3 ml) UD IH SCH ×2 (13:58→20:19)
--- NOTE | 2017-01-21 14:00 | PN ---
DATE: 01/21/2017 REASON FOR CONSULTATION AND FOLLOWUP: Shortness of breath, inability to walk, coronary artery diseas e, congestive heart failure, morbid obesity, pulmonary hypertension. BRIEF CLINICAL HISTORY: This is a 46-year-old male with a past medical history significant for morbi d obesity, severe pulmonary hypertension, chronic obstructive pulmonary disease, congestive heart pavan lure, history of coronary artery disease, status post stent, pulmonary hypertension. Recent catheter ization revealed 2-vessel disease, severe pulmonary hypertension. Admitted because of inability to w alk and getting shortness of breath on exertion, with minimal exertion. The patient was starting on IV Primacor, feels better. PHYSICAL EXAMINATION: VITAL SIGNS: Temperature afebrile, heart rate 80, blood pressure 152/73. HEENT: PERRLA. Extraocular muscles intact. NECK: Supple. No carotid bruit, no thyromegaly. CHEST: Clear to auscultation. HEART: S1, S2 regular. ABDOMEN: Soft. EXTREMITIES: Clubbing, cyanosis negative. BLOOD WORKUP: WBC 5.6, hemoglobin 8. , hematocrit 26.0, platelet count 193. Chemistry shows sod ium 140, potassium 4. , chloride 99, carbon dioxide 30, anion gap of 16, BUN 52, creatinine of 4. 5. Total protein 5. , albumin 2. , albumin/globulin ratio 1. IMPRESSION: Stage IV-V chronic kidney disease, morbid obesity, diabetes, hypertension, hyperlipidemi a, pulmonary hypertension, coronary artery disease status post percutaneous transluminal coronary ang ioplasty in the past, status post cardiac catheterization that revealed pulmonary hypertension, obesi ty, body mass index 43 kg/meters squared, hypertension, hyperlipidemia, creatinine clearance 14 mL an hour, chronic kidney disease, stage IV-V chronic kidney disease, obstructive sleep apnea, coronary a rtery disease, severe pulmonary hypertension, cardiac catheterization 12/2016 shows left ventricular f unction 45%-50%, diastolic pressure was 20%-25%, left anterior descending 70% stenosis, ramus interme dius 70% stenosis. RECOMMENDATION: The patient could not get angioplasty because of the dye load, worried about going i nto acute renal failure, end up on dialysis, so we will now treat medically. The patient is asymptom atic. Should the patient's renal function improve, which is unlikely, but once the patient starts di alysis, we will do the angioplasty. Interim, continue aggressive medical treatment. Continue hydral azine. Avoid nephrotoxic medication. Continue Coreg. Continue deep venous thrombosis prophylaxis. The patient was on milrinone. We will discontinue it tomorrow morning. Monitor renal function. If remains stable, possibly we will discharge planning. In the long run, patient needs dialysis to chevy p him dry negative fluid balance to keep him dry and get off from the pulmonary congestion and congestive heart failure. We will follow with you. Thank you, Dr. Garcia, for providing us the opportunity in taking care of the patient. We will fol low with you. We will repeat the blood workup in the morning. Lisa Minor MD cc: [id number] TT: 01/21/2017 13:59:14 Confirmation # [id number] Dictation # [id number] en
[2017-01-21 19:52] LABS: CALCIUM 8.1 mg/dL (8.6-10.3)
--- NOTE | 2017-01-21 21:36 | US ---
PROCEDURE: Bilateral upper extremity venous ultrasound HISTORY: Evaluate basilic and cephalic veins for AV fistula. PHYSICIAN(S): Calos Lewis MD. TECHNIQUE: FINDINGS: Right upper extremity: The right basilic vein in the forearm is patent though somewhat small in caliber. It measures between 2-3 mm in the forearm. The right basilic vein at the elbow measures 3 mm. The right basilic vein in the upper arm measures 4-6 mm. The right cephalic vein in the forearm is large and patent. It measures 4-5 mm. The right cephalic vein at the elbow measures 6 mm. The right cephalic vein above the elbow measures 4-5 mm. Left upper extremity: The left basilic vein in the forearm measures 2-3 mm. The left basilic vein at the elbow measures 4 mm. The left basilic vein in the upper marrow arm measures 4-5 mm. The left cephalic vein in the forearm measures 4-5 mm. The left cephalic vein at the elbow measures 5 mm. The left cephalic vein in the upper arm measures 5-6 mm. IMPRESSION: 1. No evidence of superficial thrombophlebitis. 2. The cephalic veins are large and patent above and below the elbow bilaterally. 3. The central veins were not evaluated
[2017-01-22 07:01] LABS: ADD MANUAL DIFF? NO
[2017-01-22 07:13] LABS: BASO # 0.01 K/mm3 (0.0-2.0); BASO % 0.2 % (0.0-3.0); EOS # 0.1 (0.0-0.7); EOS % 2.3 % (1.5-5.0); GRAN # 3.62 (1.4-6.5); GRAN % 68.3 % (50.0-68.0); HEMATOCRIT 27.2 % (42.0-52.0); LYMPH % 18.3 % (22.0-35.0); MEAN CELL VOLUME 87.2 fL (80.0-105.0); MEAN CORPUSCULAR HEMOGLOBIN 27.9 pg (25.0-35.0); MEAN PLATELET VOLUME 9.8 fl (7.0-11.0); MONO # 0.6 (0.1-0.6); MONO % 10.9 % (1.0-6.0); PLATELET COUNT 187 10^3/uL (120.0-450.0); RED CELL DISTRIBUTION WIDTH 16.3 % (11.5-14.5); WHITE BLOOD COUNT 5.3 10^3/ul (4.5-11.0)
[2017-01-22 07:18] LABS: BILIRUBIN,TOTAL 0.4 mg/dL (0.2-1.3); CALCIUM 8.2 mg/dL (8.4-10.5); MAGNESIUM 1.7 mg/dL (1.7-2.2); PHOSPHOROUS 4.9 mg/dL (2.5-4.5); POTASSIUM 4.7 mmol/L (3.6-5.0); TOTAL PROTEIN 5.9 g/dL (5.8-8.3)
[2017-01-22] MEDS: Insulin Reg-LOW-Coverage SC SCH ×4 (08:01→21:38)
[2017-01-22] MEDS: Albuterol-Ipratrop 3 mg / 0.5 (3 ml) UD IH SCH ×3 (08:54→20:05)
--- NOTE | 2017-01-22 09:08 | PN ---
DATE: 01/22/2017 PULMONARY NOTE SUBJECTIVE: The patient appears comfortable at rest. He is not short of breath. VITAL SIGNS: Temperature is 97.7, pulse 78, respirations 18, blood pressure 159 /79. Oxygen saturation on BiPAP is 96-97%. HEENT: Normocephalic, atraumatic. NECK: Positive JVD. CARDIOVASCULAR: Positive S1, S2. Positive S3 gallop. LUNGS: Less crackles at the bases. No rhonchi or wheezing. EXTREMITIES: Less edema. No cyanosis, no clubbing. Calves are nontender to palpation. GASTROINTESTINAL: Abdomen is soft, nontender, nondistended. Bowel sounds are positive. SKIN: No acute rash. NEUROLOGIC: Limited at the present time. IMPRESSION: 1. Recurrent congestive heart failure. 2. Dilated cardiomyopathy. 3. Coronary artery disease. 4. Respiratory failure. 5. Obstructive sleep apnea. 6. Worsening renal dysfunction. PLAN: The patient appears very comfortable this morning. He is not short of breath at rest. He does state to feeling much better overall. On physical exam , there is no significant bronchospasm noted. In addition, the alveolar arterial gradient is also less. Arterial blood gases are improving. I will continue with the current nebulizer treatments for now. I would continue with the diuresis, as per cardiology and renal. Inputs are noted. The patient is also on a milrinone drip. I did discuss the case with the night nurse at length. The patient is on nasal cannula during the day and BiPAP at night. Overall, he is certainly clinically improved. However, the future status/ prognosis of this patient does remain very guarded. I did discuss the case with Dr. Garcia yesterday. I will also discuss the case with him today. Kem Tom MD cc: [id number] TT: 01/22/2017 09:07:25 Confirmation # [id number] Dictation # [id number] jn VINNIE
[2017-01-22] MEDS: Magnesium Oxide 400 mg Tab UD PO SCH (10:24)
[2017-01-22] MEDS: POLYETHYLENE GLYCOL 3350 17 GM/Dose PACKET PO SCH ×2 (10:25→17:47)
[2017-01-22] MEDS: Azithromycin 500MG/NS 250ml 250 ML IVPB SCH (10:25)
[2017-01-22] MEDS: Pantoprazole 40 mg EC Tab PO SCH (10:25)
[2017-01-22] MEDS: cefTRIAXone 1 gm 100 ML IVPB SCH (10:26)
--- NOTE | 2017-01-22 11:27 | PN ---
DATE: 01/22/2017 REASON FOR CONSULTATION AND FOLLOWUP: Shortness of breath, inability to walk, coronary artery diseas e, congestive heart failure, morbid obesity, pulmonary hypertension. BRIEF CLINICAL HISTORY: A 46-year-old male with past medical history significant for morbid obesity, severe pulmonary hypertension, chronic obstructive pulmonary disease, chronic kidney disease, conges tive heart failure, history of coronary artery disease, status post recent cardiac catheterization, h istory of a stent in the past. Recent catheterization revealed 2-vessel disease, severe pulmonary hy pertension. The patient was on Primacor, started, feels better on this morning. PHYSICAL EXAMINATION: VITAL SIGNS: Temperature afebrile, heart rate 86, blood pressure 130/72. HEENT: PERRLA. Extraocular muscles intact. NECK: Supple. No carotid bruits. No thyromegaly. CHEST: Clear to auscultation. HEART: S1, S2 regular. ABDOMEN: Soft. EXTREMITIES: Clubbing and cyanosis negative. LABORATORY DATA: Blood workup as follows: WBC 5.8, hemoglobin 8.0, hematocrit 27.2, platelet count 187. Chemistry shows sodium 130, potassium 4.7, chloride 90, carbon dioxide 32, anion gap of 14, BUN ____, creatinine 4.2. IMPRESSION: Decompensated congestive heart failure, acute on chronic systolic dysfunction as well as renal insufficiency, creatinine clearance 15 mL, stage IV-V chronic kidney disease, diabetes, hypert ension, hyperlipidemia, morbid obesity, pulmonary hypertension, 2-vessel coronary artery disease. RECOMMENDATION: Aggressive medical treatment for now. Once the dialysis started, consider cardiac c atheterization. Continue aggressive medical treatment for now. We will discontinue telemetry, disch arge planning. Monitor renal function. We will change Lasix to p.o. and avoid nephrotoxic medicatio n. Continue carvedilol, continue aspirin. Continue DVT prophylaxis. We will put Lasix p.o. Lisa Minor MD cc: [id number] TT: 01/22/2017 11:26:50 Confirmation # [id number] Dictation # [id number] tn
--- NOTE | 2017-01-22 14:03 | PN ---
DATE: 01/22/2017 SUBJECTIVE: The patient is sitting up. Denies any further shortness of breath. He still has diffic ulty ambulating and his hemoglobin is still low at 8.7. PHYSICAL EXAMINATION: VITAL SIGNS: Stable today with temperature of 97.7, pulse of 86, respiratory rate of 18, and a blood pressure of 138/72. GENERAL: The patient is a middle-aged male who is morbidly obese, sitting up in chair in n o acute distress. HEENT: Head and neck normocephalic, atraumatic. Eyes: Pupils equal, round, reactive to light and a ccommodation. Extraocular muscles are intact. There is marked pallor, no icterus is noted. NECK: Supple with no adenopathy, no JVD, no thyromegaly. LUNGS: Decreased breath sounds bilaterally at bases. CARDIOVASCULAR: S1, S2 is heard. ABDOMEN: Distended abdomen with no rebound or guarding and no discernible tenderness. EXTREMITIES: There is bilateral 3+ pitting edema. LABORATORY DATA: Reveal a white count of 5.3, hemoglobin 8.7, hematocrit of 27.2, MCV of 87.2 and a platelet count of 187. RDW is elevated at 16.3. Iron studies are within normal limits, consistent w ith anemia of chronic disease. His BUN, creatinine is 56 and 4.2. Otherwise, all other electrolytes are within normal limits. ASSESSMENT AND PLAN: Middle-aged male with end-stage renal disease, chronic obstructive pulmonary di sease, hypertension, coronary artery disease, congestive heart failure, once again admitted with nakul estive heart failure and worsening shortness of breath. Anemia is stable, continues to be in the 8s. He has been started on EPO supplements. His hemoglobin continues to downtrend. If he drops below 8, may need packed red blood cells transfusion. Continue management as per renal and cardiology at t his point. We will follow up as an outpatient with you. Thank you for the consult. Mike Salazar MD cc: [id number] TT: 01/22/2017 14:02:38 Confirmation # [id number] Dictation # [id number]
--- NOTE | 2017-01-22 15:24 | CP.PCM.PN ---
<Kailee Mcgregor - Last Filed: 01/22/17 15:40> Subjective - Date & Time of Evaluation Date of Evaluation: 01/22/17 Time of Evaluation: 11:00 - Subjective Subjective: PGY-1 Medicine progress note. Patient seen and examined at bedside. No acute distress. Nurse reports no events overnight. Patient states that he is feeling somewhat better. His breathing is the same as before. He denies fever, chills, chest pain, n/v/d/c. Patient conts to report mild abd pain 2/2 to hernia. tolerating diet. Patient was on bipap overnight. Objective - Vital Signs/Intake and Output Vital Signs (last 24 hours): Temp Pulse Resp BP Pulse Ox 97.7 F 88 18 162/72 H 96 01/22/17 06:00 01/22/17 14:23 01/22/17 06:00 01/22/17 14:23 01/22/17 06:00 Intake and Output: 01/22/17 01/22/17 06:59 18:59 Intake Total 547 Output Total 700 Balance -153 - Medications Medications: Current Medications Albuterol/Ipratropium (Duoneb 3 Mg/0.5 Mg (3 Ml) Ud) 3 ml IH TIDRESP [facility] Last Admin: 01/22/17 14:45 Dose: 3 ml Aripiprazole (Abilify) 5 mg PO DAILY [facility] Last Admin: 01/22/17 10:23 Dose: 5 mg Aspirin (Ecotrin) 81 mg PO DAILY [facility] Last Admin: 01/22/17 10:24 Dose: 81 mg Bumetanide (Bumex) 3 mg PO Q8H [facility] Last Admin: 01/22/17 09:41 Dose: 3 mg Calcitriol (Rocaltrol) 0.25 mcg PO QAM [facility] Last Admin: 01/22/17 10:24 Dose: 0.25 mcg Carvedilol (Coreg) 12.5 mg PO BID [facility] Last Admin: 01/22/17 10:24 Dose: 12.5 mg Ferrous Sulfate (Feosol) 324 mg PO QAM [facility] Last Admin: 01/22/17 10:23 Dose: 324 mg Furosemide (Lasix) 40 mg PO 0800,1400 [facility] Last Admin: 01/22/17 14:23 Dose: 40 mg Heparin Sodium (Porcine) (Heparin) 5,000 units SC Q12 [facility] PRN Reason: Protocol Last Admin: 01/22/17 10:42 Dose: 5,000 units Hydralazine HCl (Apresoline) 25 mg PO TID [facility] Last Admin: 01/22/17 14:23 Dose: 25 mg Insulin Human Regular (Humulin R Low) 0 units SC ACHS [facility] PRN Reason: Protocol Last Admin: 01/22/17 12:43 Dose: Not Given Losartan Potassium (Cozaar) 25 mg PO QAM [facility] Last Admin: 01/22/17 10:25 Dose: 25 mg Magnesium Oxide (Mag-Ox) 400 mg PO QAM [facility] Last Admin: 01/22/17 10:24 Dose: 400 mg Pantoprazole Sodium (Protonix Ec Tab) [facility] [place] Admin: 01/22/17 10:25 Dose: 40 mg Polyethylene Glycol (Miralax) 17 gm PO BID [facility] Last Admin: 01/22/17 10:25 Dose: 17 gm - Labs Labs: 01/22/17 06:40 01/22/17 06:40 PT 11.7 Seconds (9.9-11.8) 01/16/17 13:00 INR 1.08 (0.93-1.08) 01/16/17 13:00 APTT 25.3 Seconds (23.7-30.8) 01/16/17 13:00 - Constitutional Appears: Well, No Acute Distress - Head Exam Head Exam: ATRAUMATIC, NORMOCEPHALIC - Eye Exam Eye Exam: Normal appearance - ENT Exam ENT Exam: Mucous Membranes Moist - Respiratory Exam Respiratory Exam: Decreased Breath Sounds, Clear to Ausculation Bilateral, NORMAL BREATHING PATTERN. absent: Rhonchi, Wheezes, Respiratory Distress - Cardiovascular Exam Cardiovascular Exam: REGULAR RHYTHM. absent: Tachycardia, Murmur - GI/Abdominal Exam GI & Abdominal Exam: Distended, Soft, Tenderness, Hernia, Normal Bowel Sounds. absent: Firm, Guarding - Extremities Exam Extremities Exam: Normal Inspection. absent: Pedal Edema - Neurological Exam Neurological Exam: Alert, Awake, Oriented x3 - Skin Skin Exam: Dry, Intact, Normal Color, Warm Assessment and Plan - Assessment and Plan (Free Text) Assessment: 46 yo male with PMH of DM, HTN, CKD, CAD, KARON presented with progressively worsening SOB and anasarca due to CHF exacerbation and respiratory acidosis. CXR showed diffuse infiltrates and vascular congestion, pulm edema. repeat cxr shows slight improvement in CHF. Patient was on bipap. ABG showed improvement of acidosis. Patient was transfused 1 unit RBC. Plan: 1. CHF exacerbation with SOB and anasarca - CXR on admission showed diffuse infiltrates and vascular congestion, pulm edema. - repeat CXR shows improvement - cont abx ceftriaxone and azithromycin for possible pna - infection less likely due to neg cultures, no leukocytosis, fever, antibiotis discontinues - IV lasix stopped - milirnone stopped - valdes d/c - will cont bipap at night and during naps - patient on O2 3L while not on bipap - cardio following, Dr. Minor - pulm following, Dr. Tom - nephro following - per nephrology will hold off on HD and continue to diuresis - per surgery AV fistula will be done outpatient - IR consulted for possible pleural effusion tap - transfuse 1 unit RBC yesterday - PT evaluation 2. respiratory acidosis- improved - ABG has improved, pH within normal limits - cont bipap setting at night and while napping - IV lasix were stopped - milirnone was stopped - Bumex 3 q8 was started by nephrology - per nephrology will hold off on HD and continue to diuresis with IV lasix - pulnixon following, Dr. Tom 3. CKD - appears be near baseline - valdes d/c - lasixIV stopped - milirnone stopped - per nephrology will hold off on HD and continue to diuresis - cont to monitor - cont home med calcitriol - no immediate plans for HD - per surgery AV fistula will be done outpatient 4. anemia - below baseline, stable from yesterday - cont home med feosol - cont to monitor - technical sales support specialist consulted - transfuse 1 unit RBC yesterday - consider starting epogen 5. hyperkalemia - within normal limits - cont to monitor - patient is CKD will hold any medications unless greatly elevated - nephro following 6.HTN - cont home meds coreg, hydralazine, losartan 7. DM - ISSS- low - finger sticks ACHS ppx - GI ppx protonix - DVT ppx heparin <Adrian Lang - Last Filed: 02/22/17 09:39> Objective - Vital Signs/Intake and Output Vital Signs (last 24 hours): Temp Pulse Resp BP Pulse Ox 98.0 F 59 L 18 140/70 97 01/30/17 08:00 01/30/17 08:00 01/30/17 08:00 01/30/17 09:31 01/30/17 08:00 - Labs Labs: 01/30/17 11:20 01/30/17 11:20 PT 11.7 Seconds (9.9-11.8) 01/16/17 13:00 INR 1.08 (0.93-1.08) 01/16/17 13:00 APTT 25.3 Seconds (23.7-30.8) 01/16/17 13:00 Attending/Attestation - Attestation I have personally seen and examined this patient.: Yes I have fully participated in the care of the patient.: Yes I have reviewed all pertinent clinical information, including history, physical exam and plan: Yes Notes (Text): 02/22/17 09:39 Medical record note made by the resident after discussion with my direction and input after the patient was personally seen and examined by me. I have reviewed the chart and agree that the record accurately reflects by personal performance of the history, physical exam, data review, and medical decision-making, in the course for the patient. I have also personally directed the plan of care.
[2017-01-22 16:19] LABS: BODY FLUID TYPE PLEURAL
[2017-01-22 16:41] LABS: BF GROSS APPEARANCE CLEAR (CLEAR)
[2017-01-22 16:42] LABS: BODY FLUID TOTAL COUNT 100 (0-0)
--- NOTE | 2017-01-22 17:19 | US ---
PROCEDURE: Ultrasound guided right thoracentesis. CLINICAL HISTORY: Chronic renal insufficiency. Morbid obesity. Right pleural effusion with shortness of breath. Needs thoracentesis. PHYSICIAN(S): Calos Lewis MD. TECHNIQUE: The relative risks and indications of the procedure were explained to the patient and consent obtained. The patient was placed in a sitting position on the stretcher and sonography of the right chest performed. This revealed a small to moderate sized rightpleural effusion. A right posterolateral intercostal approach was selected and the area prepped and draped usual sterile fashion. 1% Xylocaine was used to anesthetize the skin and soft tissues. A 7 Nepali thoracentesis catheter was trocared into the right pleural cavity and 2100cc of clear straw-colored fluid aspirated. Specimens were sent to the lab. IMPRESSION: 1. Ultrasound guided right thoracentesis. 2100 cc of clear, straw-coloredfluid were aspirated. The appropriate labs were sent
[2017-01-23] MEDS: Albuterol-Ipratrop 3 mg / 0.5 (3 ml) UD IH SCH ×3 (07:43→20:50)
[2017-01-23 07:47] LABS: ADD MANUAL DIFF? NO
[2017-01-23 07:56] LABS: BASO # 0.01 K/mm3 (0.0-2.0); BASO % 0.2 % (0.0-3.0); EOS # 0.1 (0.0-0.7); EOS % 1.1 % (1.5-5.0); GRAN # 5.13 (1.4-6.5); GRAN % 78.4 % (50.0-68.0); HEMATOCRIT 31.1 % (42.0-52.0); LYMPH # 0.7 (1.2-3.4); LYMPH % 10.3 % (22.0-35.0); MEAN CELL VOLUME 87.4 fL (80.0-105.0); MEAN CORPUSCULAR HEMOGLOBIN 27.8 pg (25.0-35.0); MEAN CORPUSCULAR HGB CONC 31.8 g/dl (31.0-37.0); MEAN PLATELET VOLUME 10.1 fl (7.0-11.0); MONO # 0.7 (0.1-0.6); PLATELET COUNT 215 10^3/uL (120.0-450.0); RED CELL DISTRIBUTION WIDTH 15.7 % (11.5-14.5); WHITE BLOOD COUNT 6.5 10^3/ul (4.5-11.0)
[2017-01-23 08:11] LABS: BILIRUBIN,TOTAL 0.4 mg/dL (0.2-1.3); CALCIUM 8.6 mg/dL (8.4-10.5); POTASSIUM 4.8 mmol/L (3.6-5.0); TOTAL PROTEIN 6.3 g/dL (5.8-8.3)
--- NOTE | 2017-01-23 08:22 | PN ---
DATE: 01/22/2017 The patient is a 46-year-old male with history of diabetes, hypertension, morbid obesity, KARON on CPAP , CAD, CKD V, admitted with CHF exacerbation. The patient reports feeling better, tolerating ambulat ion, tolerating diet. VITAL SIGNS: This morning, blood pressure 159/79, heart rate of 78, respirations 18, temperature 97. 7, O2 sat 96% on BiPAP. PHYSICAL EXAMINATION: GENERAL: The patient in no distress, able to converse coherently in full sentences on nasal cannula. HEENT: Large neck circumference. Moist mucous membranes. CHEST: Bronchial breath sounds over right lung field. Otherwise, clear to auscultation bilaterally. HEART: S1, S2 positive. No rubs, no murmurs, no gallops. ABDOMEN: Soft, tenderness over ventral hernia. EXTREMITIES: Marked bilateral leg edema extending to thighs and lower abdominal wall. LABORATORY DATA: This morning, WBC 5.3, hemoglobin 8.7, hematocrit 27.2, platelet count 187. Chemis try panel: Sodium 139, potassium 4.7, chloride 98, bicarbonate 32, BUN 56, creatinine 4.2, glucose 9 3, calcium 8.2, phosphorus 4.9, albumin 3.0. ASSESSMENT AND PLAN: 1. Congestive heart failure exacerbation secondary to mild systolic dysfunction as well as markedly low GFR, has been responding well to diuretics with IV diuretics changed yesterday to Bumex 3 mg p.o. q. 8 hours. The patient's weight continues to decrease with the patient going from 281.3 pounds yes terday to 279.2 pounds today on standing scale. Milrinone stopped by cardiology. We will continue w ith the same dose of Bumex for now. 2. Right pleural effusion. The patient underwent thoracentesis today with 2100 mL of fluid drained. Fluids sent for analysis. The patient should have significant symptomatic relief after the procedu re. 3. Chronic kidney disease. 4. Serum creatinine relatively stable. Electrolytes stable. No indication to initiate dialysis at this point. 5. Hypertension. Blood pressure uncontrolled. Currently on Coreg 12.5 mg b.i.d., hydralazine 25 mg t.i.d., losartan 25 mg daily, as well as diuretics. Blood pressure should improve with continued di uresis. Continue the same for now. 6. Hypercapnic respiratory failure, improving. The patient needs to be adherent to CPAP at home. 7. Vascular access. Vascular surgery consulted for AV fistula/AV graft creation. It will be done a s outpatient. Vein mapping obtained. 8. Anemia secondary to iron deficiency. The patient transfused 1 unit PRBC last night with inadequa te response in hemoglobin. Should check stool for occult blood. Chester Peerz MD cc: [id number] TT: 01/22/2017 21:16:11 Confirmation # [id number] Dictation # [id number] mn
--- NOTE | 2017-01-23 08:56 | PN ---
DATE: 01/23/2017 SUBJECTIVE: The patient appears very comfortable this morning. He is not short of breath at rest. PHYSICAL EXAMINATION: VITAL SIGNS: Temperature is 97.9, pulse 75, respirations 18, blood pressure 194 /95. Oxygen saturation on BiPAP is 97%. HEENT: Normocephalic, atraumatic. Positive JVD. CARDIOVASCULAR: Positive S1, S2. Positive S3 gallop. LUNGS: Minimal crackles at the bases. No rhonchi or wheezing. EXTREMITIES: Less edema. No cyanosis, no clubbing. Calves are nontender to palpation. GASTROINTESTINAL: Abdomen is soft, nontender, nondistended. Bowel sounds are positive. SKIN: No acute rash. NEUROLOGIC: Limited at the present time. IMPRESSION: 1. Recurrent congestive heart failure. 2. Dilated cardiomyopathy. 3. Coronary artery disease. 4. Respiratory failure. 5. Right pleural effusion. Status post thoracentesis. 6. Obstructive sleep apnea. 7. Worsening renal dysfunction. PLAN: The patient appears very comfortable this morning. He is not short of breath at rest. He states he is feeling much better overall. Oxygen saturation on BiPAP is 97%. On physical exam, there is no significant bronchospasm noted. In addition, the alveolar-arterial gradient is much less. The patient is status post right thoracentesis as per Dr. Lewis. Results are pending. Repeat CXR is ordered. I would continue with the cardiology and renal evaluations. Inputs are noted. Clinical status of the patient is significantly improved -- compared to the initial presentation. However, again , the overall status/prognosis of this patient remains very guarded. I will discuss the above with Dr. Garcia. Kem Tom MD cc: [id number] TT: 01/23/2017 08:55:26 Confirmation # [id number] Dictation # [id number] MTDD
[2017-01-23] MEDS: Pantoprazole 40 mg EC Tab PO SCH (10:06)
[2017-01-23] MEDS: Magnesium Oxide 400 mg Tab UD PO SCH (10:06)
[2017-01-23] MEDS: POLYETHYLENE GLYCOL 3350 17 GM/Dose PACKET PO SCH ×2 (10:07→17:59)
[2017-01-23] MEDS: Insulin Reg-LOW-Coverage SC SCH ×4 (10:13→21:53)
--- NOTE | 2017-01-23 12:58 | RAD ---
HISTORY: rt thoracentesis COMPARISON: 01/20/2017 TECHNIQUE: Chest PA and lateral FINDINGS: LUNGS: Decreased right-sided infiltrate and effusion. No pneumothorax PLEURA: No significant pleural effusion identified. No pneumothorax apparent. CARDIOVASCULAR: Normal. OSSEOUS STRUCTURES: No significant abnormalities. VISUALIZED UPPER ABDOMEN: Normal. OTHER FINDINGS: None. IMPRESSION: Decreased right-sided infiltrate and effusion. No pneumothorax
--- NOTE | 2017-01-23 13:36 | CP.PCM.PN ---
<Kailee Mcgregor - Last Filed: 01/23/17 14:41> Subjective - Date & Time of Evaluation Date of Evaluation: 01/23/17 Time of Evaluation: 11:00 - Subjective Subjective: PGY-1 Medicine progress note Patient seen and examined at bedside. No acute distress. Overnight patient BP was elevated and he was given his medications earlier. Patient was on bipap overnight per nurse. Yesterday patient had thoracentesis and 2100cc were removed. Breathing is somewhat improved. He denies fever, headache, chest pain, n/v/d/c. His valdes was discontinued yesterday, he denies any urinary symptoms. Objective - Vital Signs/Intake and Output Vital Signs (last 24 hours): Temp Pulse Resp BP Pulse Ox 98 F 88 20 156/88 H 95 01/23/17 08:42 01/23/17 10:07 01/23/17 08:42 01/23/17 10:07 01/23/17 08:42 Intake and Output: 01/23/17 01/23/17 06:59 18:59 Intake Total 780 Output Total 4600 Balance -3820 - Medications Medications: Current Medications Albuterol/Ipratropium (Duoneb 3 Mg/0.5 Mg (3 Ml) Ud) 3 ml IH TIDRESP [facility] Last Admin: 01/23/17 07:43 Dose: 3 ml Aripiprazole (Abilify) 5 mg PO DAILY [facility] Last Admin: 01/23/17 10:06 Dose: 5 mg Aspirin (Ecotrin) 81 mg PO DAILY [facility] Last Admin: 01/23/17 10:06 Dose: 81 mg Bumetanide (Bumex) 3 mg PO Q8H [facility] Last Admin: 01/23/17 10:08 Dose: 3 mg Calcitriol (Rocaltrol) 0.25 mcg PO QAM [facility] Last Admin: 01/23/17 10:06 Dose: 0.25 mcg Carvedilol (Coreg) 12.5 mg PO BID [facility] Last Admin: 01/23/17 10:07 Dose: 12.5 mg Ferrous Sulfate (Feosol) 324 mg PO QAM [facility] Last Admin: 01/23/17 10:06 Dose: 324 mg Heparin Sodium (Porcine) (Heparin) 5,000 units SC Q12 [facility] PRN Reason: Protocol Last Admin: 01/23/17 10:07 Dose: 5,000 units Hydralazine HCl (Apresoline) 25 mg PO TID [facility] Last Admin: 01/23/17 09:54 Dose: Not Given Insulin Human Regular (Humulin R Low) 0 units SC ACHS [facility] PRN Reason: Protocol Last Admin: 01/23/17 10:13 Dose: Not Given Losartan Potassium (Cozaar) 25 mg PO QAM [facility] Last Admin: 01/23/17 10:07 Dose: 25 mg Magnesium Oxide (Mag-Ox) 400 mg PO QAM [facility] Last Admin: 01/23/17 10:06 Dose: 400 mg Pantoprazole Sodium (Protonix Ec Tab) 40 mg PO QAM [facility] Last Admin: 01/23/17 10:06 Dose: 40 mg Polyethylene Glycol (Miralax) 17 gm PO BID [facility] Last Admin: 01/23/17 10:07 Dose: 17 gm - Labs Labs: 01/23/17 07:30 01/23/17 07:30 PT 11.7 Seconds (9.9-11.8) 01/16/17 13:00 INR 1.08 (0.93-1.08) 01/16/17 13:00 APTT 25.3 Seconds (23.7-30.8) 01/16/17 13:00 - Constitutional Appears: Well, No Acute Distress - Head Exam Head Exam: ATRAUMATIC, NORMOCEPHALIC - Eye Exam Eye Exam: Normal appearance - ENT Exam ENT Exam: Mucous Membranes Moist - Respiratory Exam Respiratory Exam: Clear to Ausculation Bilateral, NORMAL BREATHING PATTERN. absent: Decreased Breath Sounds, Rhonchi, Wheezes, Respiratory Distress - Cardiovascular Exam Cardiovascular Exam: REGULAR RHYTHM. absent: Tachycardia, Murmur - GI/Abdominal Exam GI & Abdominal Exam: Distended, Soft, Hernia, Normal Bowel Sounds. absent: Firm , Guarding, Rigid, Tenderness - Extremities Exam Extremities Exam: Normal Inspection - Neurological Exam Neurological Exam: Alert, Awake, Oriented x3 - Skin Skin Exam: Dry, Intact, Normal Color, Warm Assessment and Plan - Assessment and Plan (Free Text) Assessment: 46 yo male with PMH of DM, HTN, CKD, CAD, KARON presented with progressively worsening SOB and anasarca due to CHF exacerbation and respiratory acidosis. CXR showed diffuse infiltrates and vascular congestion, pulm edema. repeat cxr shows slight improvement in CHF. Patient was on bipap. ABG showed improvement of acidosis. Patient was transfused 1 unit RBC. Patient had thoracentesis and 2100cc were removed. Plan: 1. CHF exacerbation with SOB and anasarca - repeat CXR shows improvement of CHF, decrease pleural effusion - abx were stopped - infection less likely due to neg cultures, no leukocytosis, fever, antibiotic discontinues - IV lasix and milirnone stopped - cont bumex PO - valdes d/c - will cont bipap at night and during naps - patient on O2 3L while not on bipap - cardio following, Dr. Minor - pulm following, Dr. Tom - nephro following - per nephrology will hold off on HD and continue to diuresis - per surgery AV fistula will be done outpatient - transfused 1 unit RBC - PT evaluation, with possible transfer to rehab 2. respiratory acidosis- resolved - ABG has improved, pH within normal limits - cont bipap setting at night and while napping - IV lasix and milirnone were stopped - cont Bumex 3 q8 - per nephrology will hold off on HD and continue to diuresis with IV lasix - pulnixon following, Dr. Tom 3. CKD - appears be near baseline - valdes d/c - lasix IV and milirnone were stopped - per nephrology will hold off on HD and continue to diuresis - cont to monitor - cont home med calcitriol - no immediate plans for HD - per surgery AV fistula will be done outpatient 4. anemia - below baseline, stable from yesterday - cont home med feosol - pt was given darbepoetin per key bed installer - cont to monitor - key bed installer consulted - transfuse 1 unit RBC yesterday - hgb improved to 9.9 this morning 5. hyperkalemia- resolved - within normal limits - cont to monitor - patient is CKD will hold any medications unless greatly elevated - nephro following 6.HTN - cont home meds coreg, hydralazine, losartan 7. DM - ISSS- low - finger sticks ACHS ppx - GI ppx protonix - DVT ppx heparin <Nicholas Garcia - Last Filed: 02/27/17 10:44> Objective - Vital Signs/Intake and Output Vital Signs (last 24 hours): Temp Pulse Resp BP Pulse Ox 98.0 F 59 L 18 140/70 97 04/12/17 08:00 01/30/17 08:00 01/30/17 08:00 01/30/17 09:31 01/30/17 08:00 - Labs Labs: 01/30/17 11:20 01/30/17 11:20 PT 11.7 Seconds (9.9-11.8) 01/16/17 13:00 INR 1.08 (0.93-1.08) 01/16/17 13:00 APTT 25.3 Seconds (23.7-30.8) 01/16/17 13:00 Attending/Attestation - Attestation I have personally seen and examined this patient.: Yes I have fully participated in the care of the patient.: Yes I have reviewed all pertinent clinical information, including history, physical exam and plan: Yes Notes (Text): 02/27/17 10:44 Medial record note done by resident after patient personally seen and examined by me. I have reviewed the chart and agree that the record accurately reflects my personal evaluation, data review, and course for the patient.
--- NOTE | 2017-01-24 02:44 | PN ---
DATE: 01/23/2017 The patient is in room 573, bed 3. REASON FOR CONSULTATION/FOLLOWUP: Shortness of breath, coronary artery disease, congestive heart pavan lure, morbid obesity, pulmonary hypertension. HISTORY OF PRESENT ILLNESS: A 46-year-old male with past medical history significant for morbid obes ity, severe pulmonary hypertension, chronic obstructive pulmonary disease, chronic kidney disease, co ngestive heart failure, history of coronary artery disease status post recent cardiac catheterization , history of stent in the past. The patient got catheterization that revealed 2-vessel disease with severe pulmonary hypertension. The patient was on Primacor. The patient denies any chest pain, palp itations. He says his breathing is slowly improving. PHYSICAL EXAMINATION: VITAL SIGNS: Blood pressure 162/73, respirations 18, pulse 76, temperature 98.3. HEAD: Normocephalic. EYES: Pupils normal, conjunctivae slightly pale. NECK: JVP low. Carotid equal. THORAX: AP diameter normal. LUNGS: No significant rales. CARDIOVASCULAR: S1, S2. ABDOMEN: Protuberant, no organomegaly. EXTREMITIES: No clubbing, no cyanosis. LABORATORY DATA: WBC 6.5, hemoglobin 9.9, hematocrit 31.1, platelets 215. Sodium 138, potassium 4.8 , BUN 55, creatinine 4.0, random sugar 117. AST and ALT normal. Total protein and albumin normal. DIAGNOSES: 1. Decompensated congestive heart failure. 2. Ohzhu-vs-vwtlbtl systolic dysfunction. 3. Renal insufficiency, creatinine clearance 50 mL, stage IV-V chronic kidney disease. 4. Diabetes. 5. Hypertension. 6. Hyperlipidemia. 7. Morbid obesity. 8. Pulmonary hypertension. 9. Two-vessel coronary artery disease. PLAN: To continue aggressive medical treatment. Once the dialysis is started, will consider cardiac catheterization. Continue carvedilol, continue aspirin, continue DVT prophylaxis. Coreg 12.5 b.i.d ., Bumex 2 mg p.o. q. 8 hours, hydralazine 25 mg t.i.d., Abilify 5 mg p.o. daily, losartan 25 mg p.o. daily, aspirin 81 mg p.o. daily, ferrous sulfate 324 mg p.o. daily, heparin 5000 units subQ q. 12 ho urs. We will continue present therapy. We will follow with you. Lisa Lei MD cc: [id number] TT: 01/24/2017 02:44:02 Confirmation # [id number] Dictation # [id number] vn
[2017-01-24 07:52] LABS: ADD MANUAL DIFF? NO
[2017-01-24] MEDS: Albuterol-Ipratrop 3 mg / 0.5 (3 ml) UD IH SCH ×3 (07:53→20:35)
[2017-01-24 07:57] LABS: BASO # 0.01 K/mm3 (0.0-2.0); BASO % 0.2 % (0.0-3.0); EOS # 0.1 (0.0-0.7); EOS % 1.2 % (1.5-5.0); GRAN # 3.82 (1.4-6.5); GRAN % 73.8 % (50.0-68.0); HEMATOCRIT 30.9 % (42.0-52.0); LYMPH # 0.8 (1.2-3.4); LYMPH % 15.5 % (22.0-35.0); MEAN CELL VOLUME 88.3 fL (80.0-105.0); MEAN CORPUSCULAR HEMOGLOBIN 27.7 pg (25.0-35.0); MEAN CORPUSCULAR HGB CONC 31.4 g/dl (31.0-37.0); MEAN PLATELET VOLUME 9.9 fl (7.0-11.0); MONO # 0.5 (0.1-0.6); MONO % 9.3 % (1.0-6.0); PLATELET COUNT 202 10^3/uL (120.0-450.0); RED CELL DISTRIBUTION WIDTH 15.7 % (11.5-14.5); WHITE BLOOD COUNT 5.2 10^3/ul (4.5-11.0)
[2017-01-24 08:14] LABS: ALB/GLOB RATIO 0.9 (1.1-1.8); BILIRUBIN,TOTAL 0.4 mg/dL (0.2-1.3); CALCIUM 8.8 mg/dL (8.4-10.5); POTASSIUM 4.8 mmol/L (3.6-5.0); TOTAL PROTEIN 6.1 g/dL (5.8-8.3)
--- NOTE | 2017-01-24 08:28 | PN ---
DATE: 01/23/2017 A 46-year-old male with history of diabetes, hypertension, morbid obesity, KARON on CPAP, CAD, CKD V, a dmitted with congestive heart failure exacerbation. Nephrology consulted for volume overload and pos sible initiation of dialysis. Today, the patient feels that HIS overall breathing much improved afte r having thoracentesis done yesterday. 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 PHYSICAL EXAMINATION: VITAL SIGNS: This morning, blood pressure 156/88, heart rate 88, respirations 20, temperature 98, O2 sat 95%. GENERAL: No distress, able to speak coherently in full sentences. HEENT: Large neck circumference. Moist mucous membranes. No scleral icterus. CHEST: Improved breath sounds over right lung field, decreased sounds at left lung base. Otherwise, clear to auscultation bilaterally. HEART: S1, S2 positive. No rubs, no murmurs, no gallops. ABDOMEN: Soft, nondistended, mild tenderness. EXTREMITIES: Mild to moderate bilateral leg edema extending to the thighs. LABORATORY DATA: This morning, WBC 6.5, hemoglobin 9.9, hematocrit 31.1, platelets 215. Sodium 138, potassium 4.8, chloride 97, bicarb 34. BUN 55, creatinine 4.0, glucose 118, calcium 8.6, albumin 3. 1. ASSESSMENT: 1. Congestive heart failure exacerbation secondary to mild systolic dysfunction as well as markedly low GFR. Continues to respond well to p.o. diuretics on Bumex 3 mg p.o. q. 8 hours. The patient has overall lost 9.4 pounds since yesterday, about half of which was from thoracentesis with 2.1 liters drained. Symptomatically, much better, much improved. We will decrease dose of Bumex to 2 mg p.o. q . 8 hours. 2. Right pleural effusion, status post thoracentesis with much improved symptoms. 3. Chronic kidney disease IV/V. 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 Should continue with losartan 25 mg and monitor for hyperkalemia, currently stable potassium leve l, serum creatinine relatively stable; note indication to initiate dialysis at this point. 4. Hypertension. Blood pressure uncontrolled. Currently on Coreg 12.5 mg b.i.d., hydralazine 25 mg t.i.d., losartan 25 mg daily, as well as diuretics. The patient continues to diurese well. Can exp ect further blood pressure improvement with diuresis. 5. Hypercapnic respiratory failure, improved. The patient needs to be adherent to CPAP at night. B icarb on chemistry panel increasing, may reflect compensatory metabolic alkalosis and/or superimposed metabolic alkalosis due to diuretics. Should obtain a venous gas to assess for agree of alkalosis. 6. Vascular access. AV fistula, AV graft to be created as an outpatient. Vein mapping obtained. 7. Anemia secondary to iron deficiency, transfused 1 unit PRBC 2 nights ago. Hemoglobin and hematoc rit today showing appropriate response. Chester Perez MD cc: [id number] TT: 01/23/2017 18:43:39 Confirmation # [id number] Dictation # [id number] [email or web address]
--- NOTE | 2017-01-24 08:51 | PN ---
DATE: 01/24/2017 SUBJECTIVE: The patient appears very comfortable this morning. He is not short of breath at rest. PHYSICAL EXAMINATION: VITAL SIGNS (last noted in the computer): Temperature is 98.3, pulse 85, respirations 18, blood pressure 163/73. Oxygen saturation on nasal cannula is 95%. HEENT: Normocephalic, atraumatic. Positive JVD. CARDIOVASCULAR: Positive S1, S2. Positive S3 gallop. LUNGS: Less crackles at the bases. No rhonchi. No wheezing. EXTREMITIES: Less edema. No cyanosis, no clubbing. Calves are nontender to palpation. GASTROINTESTINAL: Abdomen is soft, nontender, nondistended. Bowel sounds are positive. SKIN: No acute rash. NEUROLOGIC: Limited at the present time. PERTINENT LABORATORY DATA: Chest x-ray was repeated yesterday and reviewed. There is a decrease in the pulmonary edema, as well as a decrease in the right pleural effusion noted. IMPRESSION: 1. Recurrent congestive heart failure. 2. Dilated cardiomyopathy. 3. Coronary artery disease. 4. Respiratory failure. 5. Right pleural effusion. Status post thoracentesis. 6. Obstructive sleep apnea. 7. Worsening renal dysfunction. PLAN: The patient appears very comfortable this morning. He is not short of breath at rest. He states he is feeling much better overall. Last oxygen saturation measured on nasal cannula -- 95%. On physical exam, there is no bronchospasm noted. In addition, the alveolar-arterial gradient is significantly decreased. I will continue with the current nebulizer treatments for now. The patient also remains on BiPAP at night. Inputs by renal and cardiology are noted. Clinical status of the patient is significantly improved -- compared to the initial presentation. However, again, the overall status/ prognosis of this patient does remain very guarded. I will discuss the above with Dr. Garcia. Kem Tom MD cc: [id number] TT: 01/24/2017 08:50:31 Confirmation # [id number] Dictation # [id number] MTDD
--- NOTE | 2017-01-24 09:40 | CP.PCM.PN ---
<Kailee Mcgregor - Last Filed: 01/24/17 13:01> Subjective - Date & Time of Evaluation Date of Evaluation: 01/24/17 Time of Evaluation: 09:39 - Subjective Subjective: PGY-1 Medicine progress note Patient seen and examined at bedside. No acute distress. Nurse states no events overnight, patient was on bipap overnight and this morning. Patient states he is doing better today. He report improvement overall and with breathing. He reports 1 BM yesterday, denies urinary symptoms. He denies fever, chills, chest pain, abd pain, n/v. While working with PT patient destated to 74% on room air, SaO2 returned to 92% with O2. Objective - Vital Signs/Intake and Output Vital Signs (last 24 hours): Temp Pulse Resp BP Pulse Ox 98 F 68 18 181/84 H 95 01/24/17 08:49 01/24/17 08:49 01/24/17 08:49 01/24/17 08:49 01/24/17 08:49 Intake and Output: 01/24/17 01/24/17 06:59 18:59 Intake Total 840 Output Total 700 Balance 140 - Medications Medications: Current Medications Albuterol/Ipratropium (Duoneb 3 Mg/0.5 Mg (3 Ml) Ud) 3 ml IH TIDRESP [facility] Last Admin: 01/24/17 07:53 Dose: 3 ml Aripiprazole (Abilify) 5 mg PO DAILY [facility] Last Admin: 01/23/17 10:06 Dose: 5 mg Aspirin (Ecotrin) 81 mg PO DAILY [facility] Last Admin: 01/23/17 10:06 Dose: 81 mg Bumetanide (Bumex) 2 mg PO Q8H [facility] Last Admin: 01/24/17 00:46 Dose: 2 mg Calcitriol (Rocaltrol) 0.25 mcg PO QAM [facility] Last Admin: 01/23/17 10:06 Dose: 0.25 mcg Carvedilol (Coreg) 12.5 mg PO BID [facility] Last Admin: 01/23/17 17:58 Dose: 12.5 mg Ferrous Sulfate (Feosol) 324 mg PO QAM [facility] Last Admin: 01/23/17 10:06 Dose: 324 mg Heparin Sodium (Porcine) (Heparin) 5,000 units SC Q12 [facility] PRN Reason: Protocol Last Admin: 01/23/17 21:49 Dose: 5,000 units Hydralazine HCl (Apresoline) 25 mg PO TID [facility] Last Admin: 01/23/17 17:57 Dose: 25 mg Insulin Human Regular (Humulin R Low) 0 units SC ACHS [facility] PRN Reason: Protocol Last Admin: 01/23/17 21:53 Dose: Not Given Losartan Potassium (Cozaar) 25 mg PO QAM [facility] Last Admin: 01/23/17 10:07 Dose: 25 mg Magnesium Oxide (Mag-Ox) 400 mg PO QAM [facility] Last Admin: 01/23/17 10:06 Dose: 400 mg Pantoprazole Sodium (Protonix Ec Tab) 40 mg PO QAM [facility] Last Admin: 01/23/17 10:06 Dose: 40 mg Polyethylene Glycol (Miralax) 17 gm PO BID [facility] Last Admin: 01/23/17 17:59 Dose: 17 gm - Labs Labs: 01/24/17 07:30 01/24/17 07:30 PT 11.7 Seconds (9.9-11.8) 01/16/17 13:00 INR 1.08 (0.93-1.08) 01/16/17 13:00 APTT 25.3 Seconds (23.7-30.8) 01/16/17 13:00 - Constitutional Appears: Well, No Acute Distress - Head Exam Head Exam: ATRAUMATIC, NORMOCEPHALIC - Eye Exam Eye Exam: Normal appearance - ENT Exam ENT Exam: Mucous Membranes Moist - Respiratory Exam Respiratory Exam: Clear to Ausculation Bilateral, NORMAL BREATHING PATTERN. absent: Rhonchi, Wheezes, Respiratory Distress - Cardiovascular Exam Cardiovascular Exam: REGULAR RHYTHM. absent: Tachycardia, Murmur - GI/Abdominal Exam GI & Abdominal Exam: Distended, Soft, Hernia, Normal Bowel Sounds. absent: Firm , Guarding, Tenderness - Extremities Exam Extremities Exam: Normal Inspection. absent: Pedal Edema - Neurological Exam Neurological Exam: Alert, Awake, Oriented x3 - Skin Skin Exam: Dry, Intact, Normal Color, Warm Assessment and Plan - Assessment and Plan (Free Text) Assessment: 46 yo male with PMH of DM, HTN, CKD, CAD, KARON presented with progressively worsening SOB and anasarca due to CHF exacerbation and respiratory acidosis. CXR showed diffuse infiltrates and vascular congestion, pulm edema. repeat cxr shows slight improvement in CHF. Patient was on bipap. ABG showed improvement of acidosis. Patient was transfused 1 unit RBC. Patient had thoracentesis and 2100cc was removed. Plan: 1. CHF exacerbation with SOB and anasarca - repeat CXR shows improvement of CHF, decrease pleural effusion - abx were stopped, infection less likely due to neg cultures, no leukocytosis, fever, antibiotic discontinues - IV lasix and milirnone stopped - cont bumex PO - will cont bipap at night and during naps - patient on O2 3L while not on bipap - cardio following, Dr. Minor - pulm following, Dr. Tom - nephro following - per nephrology will hold off on HD and continue to diuresis - per surgery AV fistula will be done outpatient - transfused 1 unit RBC, HgB improved - PT evaluation, recommended hws/tcu - tcu evaluation pending 2. respiratory acidosis- resolved - ABG has improved, pH within normal limits - cont bipap setting at night and while napping - IV lasix and milirnone were stopped - cont Bumex 3 q8 - pulm following, Dr. Tom 3. CKD - appears be near baseline - valdes d/c - lasix IV and milirnone were stopped - per nephrology will hold off on HD and continue to diuresis - cont to monitor - cont home med calcitriol - no immediate plans for HD - per surgery AV fistula will be done outpatient - nephro following 4. anemia - patient near baseline, improvement after blood transfusion - cont home med feosol - pt was given darbepoetin per enrobing machine operator - cont to monitor - enrobing machine operator consulted - transfuse 1 unit RBC on 01/21 - hgb improved 5. hyperkalemia- resolved - within normal limits - cont to monitor - patient is CKD will hold any medications unless greatly elevated - nephro following 6.HTN - cont home meds coreg, hydralazine, losartan - cont to monitor 7. DM - ISSS- low - finger sticks ACHS ppx - GI ppx protonix - DVT ppx heparin <Nicholas Garcia - Last Filed: 02/27/17 10:45> Objective - Vital Signs/Intake and Output Vital Signs (last 24 hours): Temp Pulse Resp BP Pulse Ox 98.0 F 59 L 18 140/70 97 04/12/17 08:00 01/30/17 08:00 01/30/17 08:00 01/30/17 09:31 01/30/17 08:00 - Labs Labs: 01/30/17 11:20 01/30/17 11:20 PT 11.7 Seconds (9.9-11.8) 01/16/17 13:00 INR 1.08 (0.93-1.08) 01/16/17 13:00 APTT 25.3 Seconds (23.7-30.8) 01/16/17 13:00 Attending/Attestation - Attestation I have personally seen and examined this patient.: Yes I have fully participated in the care of the patient.: Yes I have reviewed all pertinent clinical information, including history, physical exam and plan: Yes Notes (Text): 02/27/17 10:45 Medial record note done by resident after patient personally seen and examined by me. I have reviewed the chart and agree that the record accurately reflects my personal evaluation, data review, and course for the patient.
[2017-01-24] MEDS: Pantoprazole 40 mg EC Tab PO SCH (10:37)
[2017-01-24] MEDS: Insulin Reg-LOW-Coverage SC SCH ×3 (10:38→22:21)
[2017-01-24] MEDS: POLYETHYLENE GLYCOL 3350 17 GM/Dose PACKET PO SCH (10:38)
[2017-01-24] MEDS: Magnesium Oxide 400 mg Tab UD PO SCH (10:38)
--- NOTE | 2017-01-24 15:41 | PN ---
DATE: 01/24/2017 SUBJECTIVE: The patient is sitting up in bed, comfortable. He still has shortness of breath upon ex ertion, but denies any shortness of breath at rest. His O2 sats also drop considerably every time he moves. PHYSICAL EXAMINATION: VITAL SIGNS: Reported as a temperature of 98.3, pulse of 85, respiratory rate of 18, and blood press ure 163/73. GENERAL: The patient is a middle-aged, morbidly obese male lying in bed, in no acute distress. HEAD: Normocephalic, atraumatic. EYES: Pupils equal, round, reactive to light and accommodation. Extraocular muscles are intact. Th ere is pallor, no icterus is noted. NECK: Supple with no adenopathy, no JVD, no thyromegaly. LUNGS: Decreased breath sounds bilaterally at the bases. CARDIOVASCULAR: S1, S2 is heard. The patient is tachycardic. ABDOMEN: Positive bowel sounds, soft, nontender, nondistended, no organomegaly is palpated. EXTREMITIES: There is bilateral lower extremity edema. LABORATORY DATA: Reveal a white count of 5.2, hemoglobin 9.7, hematocrit 30.9, MCV of 88.3 and a gerber telet count of 202. Chemistries are BUN and creatinine 55 and 4.0, otherwise within normal limits. ASSESSMENT AND PLAN: Middle-aged male with end-stage renal disease, awaiting hemodialysis evaluation at this point. Anemia secondary to chronic kidney disease. Continue epogen supplement once a week. The patient has multiple medical issues and they are currently being addressed. Would hold off on a ny blood transfusion at this point as his hemoglobin is stable. Thank you for the consult. We will follow. Mike Salazar MD cc: [id number] TT: 01/24/2017 15:40:08 Confirmation # [id number] Dictation # [id number]
--- NOTE | 2017-01-24 22:39 | CP.PCM.PN ---
Subjective - Date & Time of Evaluation Date of Evaluation: 01/24/17 Time of Evaluation: 16:00 - Subjective Subjective: Patient reports improved breathing; able to ambulate; Objective - Vital Signs/Intake and Output Vital Signs (last 24 hours): Temp Pulse Resp BP Pulse Ox 97.6 F 65 19 155/78 H 95 01/24/17 16:00 01/24/17 16:00 01/24/17 16:00 01/24/17 16:00 01/24/17 16:00 Intake and Output: 01/24/17 01/25/17 18:59 06:59 Intake Total 1720 Output Total 800 Balance 920 - Medications Medications: Current Medications Albuterol/Ipratropium (Duoneb 3 Mg/0.5 Mg (3 Ml) Ud) 3 ml IH TIDRESP [facility] Last Admin: 01/24/17 20:35 Dose: 3 ml Aripiprazole (Abilify) 5 mg PO DAILY [facility] Last Admin: 01/24/17 10:38 Dose: 5 mg Aspirin (Ecotrin) 81 mg PO DAILY [facility] Last Admin: 01/24/17 10:37 Dose: 81 mg Bumetanide (Bumex) 3 mg PO BID [facility] Last Admin: 01/24/17 17:51 Dose: 3 mg Calcitriol (Rocaltrol) 0.25 mcg PO QAM [facility] Last Admin: 01/24/17 10:38 Dose: 0.25 mcg Carvedilol (Coreg) 25 mg PO BID [facility] Last Admin: 01/24/17 16:55 Dose: 25 mg Ferrous Sulfate (Feosol) 324 mg PO QAM [facility] Last Admin: 01/24/17 10:37 Dose: 324 mg Heparin Sodium (Porcine) (Heparin) 5,000 units SC Q12 [facility] PRN Reason: Protocol Last Admin: 01/24/17 21:36 Dose: 5,000 units Hydralazine HCl (Apresoline) 50 mg PO TID [facility] Insulin Human Regular (Humulin R Low) 0 units SC ACHS [facility] PRN Reason: Protocol Last Admin: 01/24/17 22:21 Dose: Not Given Losartan Potassium (Cozaar) 25 mg PO QAM [facility] Last Admin: 01/24/17 10:37 Dose: 25 mg Magnesium Oxide (Mag-Ox) 400 mg PO QAM [facility] Last Admin: 01/24/17 10:38 Dose: 400 mg Pantoprazole Sodium (Protonix Ec Tab) 40 mg PO QAM [facility] Last Admin: 01/24/17 10:37 Dose: 40 mg Polyethylene Glycol (Miralax) 17 gm PO BID [facility] Last Admin: 01/24/17 10:38 Dose: 17 gm - Labs Labs: 01/24/17 07:30 01/24/17 07:30 PT 11.7 Seconds (9.9-11.8) 01/16/17 13:00 INR 1.08 (0.93-1.08) 01/16/17 13:00 APTT 25.3 Seconds (23.7-30.8) 01/16/17 13:00 - Constitutional Appears: Well, No Acute Distress - Head Exam Head Exam: NORMAL INSPECTION - Eye Exam Eye Exam: Normal appearance. absent: Scleral icterus - ENT Exam ENT Exam: Mucous Membranes Moist Additional comments: large neck circumference - Respiratory Exam Respiratory Exam: Clear to Ausculation Bilateral, NORMAL BREATHING PATTERN Additional comments: Decreased breath sounds on R - Cardiovascular Exam Cardiovascular Exam: REGULAR RHYTHM, +S1, +S2 - GI/Abdominal Exam GI & Abdominal Exam: Soft. absent: Distended, Tenderness - Extremities Exam Extremities Exam: Normal Capillary Refill Additional comments: Moderate bilateral lower leg edema extending to thighs, improved; - Neurological Exam Neurological Exam: Alert, Awake - Psychiatric Exam Psychiatric exam: Normal Affect, Normal Mood - Skin Skin Exam: Warm. absent: Cyanosis Assessment and Plan (1) CHF exacerbation Assessment & Plan: With mild systolic dysfunction and markedly low GFR; PO diuretic dosing being adjusted the last 2 days; inadequate dose response to bumex 2 mg q8h with very little weight change since yesterday (0.4 lbs decrease on standing scale); as we still need further volume removal, increasing dose back to 3 mg but now bid to target 2 lb weight loss per day; patient instructed to weight himself daily at home; once at under 260 lbs, can switch back to 2 mg dose; Status: Acute (2) Chronic kidney disease (CKD), stage V Assessment & Plan: Stage IV/V, needs AVF/AVG placement as outpatient as soon as possible; stable lytes; still needs more diuresis; no indication for dialysis at this point; Status: Chronic (3) HTN (hypertension) Assessment & Plan: Uncontrolled; coreg being increased from 12.5 to 25 mg bid today; Status: Chronic (4) Hypercapnic respiratory failure Assessment & Plan: Improved; should have repeat blood gas as chem panel showing increasing bicarb; Status: Acute
--- NOTE | 2017-01-24 23:15 | PN ---
DATE: 01/24/2017 REASON FOR CONSULTATION FOLLOWUP: Shortness of breath, coronary artery disease, congestive heart pavan lure, morbid obesity, pulmonary hypertension. HISTORY OF PRESENT ILLNESS: A 46-year-old male with past medical history significant for morbid obes ity, severe pulmonary hypertension, chronic obstructive pulmonary disease, chronic kidney disease, co ngestive heart failure, history of coronary artery disease status post cardiac catheterization, histo ry of stents in the past. The patient had cardiac catheterization that revealed 2-vessel disease wit h severe pulmonary hypertension. The patient now lying flat in bed without chest pain, shortness of breath, or palpitations. VITAL SIGNS: Blood pressure 155/78, respirations 19, pulse 65, temperature 97.6. HEAD: Normocephalic. EYES: Pupils normal. Conjunctivae slightly pale. NECK: JVP low. Carotid equal. THORAX: AP diameter normal. LUNGS: Clear. CARDIOVASCULAR: S1, S2. Protuberant abdomen. No organomegaly. Bowel sounds normal. EXTREMITIES: No clubbing, no cyanosis. LABORATORIES: WBC 5.2, hemoglobin 9.7, hematocrit 13.9, platelet 202. Sodium 139, potassium 4.8, BU N 55, creatinine 4.0. Random sugar 118. AST, ALT normal. Total protein 6.1, albumin 2.9. DIAGNOSES: Decompensated congestive heart failure acute on chronic, systolic dysfunction, renal insu fficiency. Creatinine clearance 56 mL. Stage IV-V chronic kidney disease, diabetes, hypertension, h yperlipidemia, morbid obesity, pulmonary hypertension. PLAN: We will continue medical therapy. At this moment the patient had no chest pain. Once the pat ient on dialysis then we will consider angioplasty for coronary artery disease. The patient on carvedilol, Bumex, hydralazine is on 25 t.i.d., losartan at 25 mg p.o. daily, aspirin 81 mg p.o. daily, ferrous sulfate 324 mg p.o. daily, heparin 5000 units subQ q. 12 hours. Since blood pressure is elevated will make hydralazine 50 mg t.i.d., and will monitor blood pressure with you. The patient now on carvedilol 25 b.i.d., losartan 25 b.i.d., ferrous sulfate 324 daily, he darci 5000 units q. 12 hours subQ, Protonix 40 daily. Will continue to follow with you. Lisa Lei MD cc: [id number] TT: 01/24/2017 23:14:24 Confirmation # [id number] Dictation # [id number] jn
[2017-01-25] MEDS: Albuterol-Ipratrop 3 mg / 0.5 (3 ml) UD IH SCH ×3 (07:16→20:53)
[2017-01-25 07:22] LABS: ADD MANUAL DIFF? NO
[2017-01-25 07:39] LABS: BASO # 0.01 K/mm3 (0.0-2.0); BASO % 0.2 % (0.0-3.0); EOS # 0.1 (0.0-0.7); EOS % 1.4 % (1.5-5.0); GRAN # 3.54 (1.4-6.5); GRAN % 69.6 % (50.0-68.0); HEMATOCRIT 31.6 % (42.0-52.0); MEAN CORPUSCULAR HEMOGLOBIN 27.9 pg (25.0-35.0); MEAN CORPUSCULAR HGB CONC 31.3 g/dl (31.0-37.0); MEAN PLATELET VOLUME 9.8 fl (7.0-11.0); MONO # 0.5 (0.1-0.6); MONO % 8.8 % (1.0-6.0); PLATELET COUNT 198 10^3/uL (120.0-450.0); RED CELL DISTRIBUTION WIDTH 15.4 % (11.5-14.5); WHITE BLOOD COUNT 5.1 10^3/ul (4.5-11.0)
[2017-01-25 07:43] LABS: ALB/GLOB RATIO 0.9 (1.1-1.8); BILIRUBIN,TOTAL 0.4 mg/dL (0.2-1.3); CALCIUM 8.6 mg/dL (8.4-10.5); POTASSIUM 5.1 mmol/L (3.6-5.0); TOTAL PROTEIN 5.9 g/dL (5.8-8.3)
--- NOTE | 2017-01-25 09:43 | PN ---
DATE: 01/25/2017 SUBJECTIVE: The patient appears very comfortable at rest. He is not short of breath. PHYSICAL EXAMINATION: VITAL SIGNS (last noted in the computer): Temperature is 97.6, pulse 65, respirations 19, blood pressure 155/78. Oxygen saturation on nasal cannula is 95%. HEENT: Normocephalic, atraumatic. Positive JVD. CARDIOVASCULAR: Positive S1, S2. Positive S3 gallop. LUNGS: Minimal/less crackles at the bases. Otherwise, clear. EXTREMITIES: Less edema. No cyanosis, no clubbing. Calves are nontender to palpation. GASTROINTESTINAL: Abdomen is soft, nontender, nondistended. Bowel sounds are positive. SKIN: No acute rash. NEUROLOGIC: Limited at the present time. IMPRESSION: 1. Recurrent congestive heart failure. 2. Dilated cardiomyopathy. 3. Coronary artery disease. 4. Respiratory failure. 5. Right pleural effusion. Status post thoracentesis. 6. Obstructive sleep apnea. 7. Worsening renal dysfunction. PLAN: The patient appears very comfortable this morning. He is not short of breath at rest. He states he is feeling much better overall. On physical exam , there are less crackles noted at the bases. In addition, the alveolar- arterial gradient is significantly decreased. I will continue the patient on nasal cannula during the day, and BiPAP at night. Inputs by cardiology and renal are noted. Additional pleural fluid results are pending. Clinical status of the patient is significantly improved -- compared to last week. However, again, the overall status/prognosis of this patient remains very guarded. I will discuss the above with Dr. Garcia. Kem Tom MD cc: [id number] TT: 01/25/2017 09:43:05 Confirmation # [id number] Dictation # [id number] MTDD
[2017-01-25] MEDS: POLYETHYLENE GLYCOL 3350 17 GM/Dose PACKET PO SCH ×2 (10:00→18:00)
[2017-01-25] MEDS: Insulin Reg-LOW-Coverage SC SCH ×4 (10:06→21:53)
[2017-01-25] MEDS: Magnesium Oxide 400 mg Tab UD PO SCH (10:07)
[2017-01-25] MEDS: Pantoprazole 40 mg EC Tab PO SCH (10:08)
--- NOTE | 2017-01-25 11:14 | PN ---
DATE: 01/25/2017 ADDENDUM The patient suffers from a multiplicity of etiologies, includin. Chronic obstructive pulmonary disease. 2. Obstructive sleep apnea. 3. Respiratory failure. 4. Congestive heart failure. He did present during this admission with very elevated levels of carbon dioxide in his blood. He did, in fact, present with respiratory failure. What I am recommending now is Trilogy ventilation at home. I feel that Trilogy ventilation will not only help his obstructive sleep apnea, but will help further alleviate his additional episodes of respiratory failure. In fact, Trilogy ventilation may very well save additional hospitalizations. PLAN: To discontinue the BiPAP, as it has proven insufficient. I did discuss the above with the apnea consumer sales representative today. The patient has been well informed. I will discuss the above with the attending physician. Kem Tom MD cc: [id number] TT: 01/25/2017 11:13:39 Confirmation # [id number] Dictation # [id number] jn MTDD
--- NOTE | 2017-01-25 15:24 | CP.PCM.PN ---
<Kailee Mcgregor - Last Filed: 01/25/17 15:23> Subjective - Date & Time of Evaluation Date of Evaluation: 01/25/17 Time of Evaluation: 11:00 - Subjective Subjective: PGY-1 Medicine progress note Patient seen and examined at bedside. No acute distress. Nurse reports no events overnight. Patient refused bipap overnight. He states that he is doing better overall. He denies headache, dizziness, chest pain, n/v/d/c, abd pain. Tolerating diet. Objective - Vital Signs/Intake and Output Vital Signs (last 24 hours): Temp Pulse Resp BP Pulse Ox 97.9 F 66 16 133/47 L 99 01/25/17 08:00 01/25/17 08:00 01/25/17 08:00 01/25/17 08:00 01/25/17 08:00 Intake and Output: 01/25/17 01/25/17 06:59 18:59 Intake Total 840 Output Total 550 Balance 290 - Medications Medications: Current Medications Albuterol/Ipratropium (Duoneb 3 Mg/0.5 Mg (3 Ml) Ud) 3 ml IH TIDRESP [facility] Last Admin: 01/25/17 13:19 Dose: 3 ml Aripiprazole (Abilify) 5 mg PO DAILY [facility] Last Admin: 01/25/17 10:08 Dose: 5 mg Aspirin (Ecotrin) 81 mg PO DAILY [facility] Last Admin: 01/25/17 10:08 Dose: 81 mg Bumetanide (Bumex) 3 mg PO BID [facility] Last Admin: 01/25/17 10:58 Dose: 3 mg Calcitriol (Rocaltrol) 0.25 mcg PO QAM [facility] Last Admin: 01/25/17 10:07 Dose: 0.25 mcg Carvedilol (Coreg) 25 mg PO BID [facility] Last Admin: 01/25/17 10:08 Dose: 25 mg Ferrous Sulfate (Feosol) 324 mg PO QAM [facility] Last Admin: 01/25/17 10:08 Dose: 324 mg Heparin Sodium (Porcine) (Heparin) 5,000 units SC Q12 [facility] PRN Reason: Protocol Last Admin: 01/25/17 10:08 Dose: 5,000 units Hydralazine HCl (Apresoline) 50 mg PO TID [facility] Insulin Human Regular (Humulin R Low) 0 units SC ACHS [facility] PRN Reason: Protocol Last Admin: 01/25/17 10:06 Dose: Not Given Losartan Potassium (Cozaar) 25 mg PO QAM [facility] Last Admin: 01/25/17 10:08 Dose: 25 mg Magnesium Oxide (Mag-Ox) 400 mg PO QAM [facility] Last Admin: 01/25/17 10:07 Dose: 400 mg Pantoprazole Sodium (Protonix Ec Tab) 40 mg PO QAM [facility] Last Admin: 01/25/17 10:08 Dose: 40 mg Polyethylene Glycol (Miralax) 17 gm PO BID [facility] Last Admin: 01/24/17 10:38 Dose: 17 gm - Labs Labs: 01/25/17 06:45 01/25/17 06:45 PT 11.7 Seconds (9.9-11.8) 01/16/17 13:00 INR 1.08 (0.93-1.08) 01/16/17 13:00 APTT 25.3 Seconds (23.7-30.8) 01/16/17 13:00 - Constitutional Appears: Well, No Acute Distress - Head Exam Head Exam: ATRAUMATIC, NORMOCEPHALIC - Eye Exam Eye Exam: Normal appearance - ENT Exam ENT Exam: Mucous Membranes Moist - Respiratory Exam Respiratory Exam: Clear to Ausculation Bilateral, NORMAL BREATHING PATTERN. absent: Decreased Breath Sounds, Rhonchi, Wheezes, Respiratory Distress - Cardiovascular Exam Cardiovascular Exam: REGULAR RHYTHM. absent: Tachycardia, Murmur - GI/Abdominal Exam GI & Abdominal Exam: Soft, Normal Bowel Sounds. absent: Distended, Firm, Guarding, Tenderness - Extremities Exam Extremities Exam: Normal Inspection. absent: Pedal Edema - Neurological Exam Neurological Exam: Alert, Awake, Oriented x3 - Skin Skin Exam: Dry, Intact, Normal Color, Warm Assessment and Plan - Assessment and Plan (Free Text) Assessment: 46 yo male with PMH of DM, HTN, CKD, CAD, KARON presented with progressively worsening SOB and anasarca due to CHF exacerbation and respiratory acidosis. CXR showed diffuse infiltrates and vascular congestion, pulm edema. repeat cxr shows slight improvement in CHF. Patient was on bipap. ABG showed improvement of acidosis. Patient was transfused 1 unit RBC. Patient had thoracentesis and 2100cc was removed. Patient is awaiting placement. Plan: 1. CHF exacerbation with SOB and anasarca - repeat CXR on 4/5/17 shows improvement of CHF, decrease pleural effusion - afebrile without leukocytosis - IV lasix and milirnone stopped - cont bumex PO - will cont bipap at night and during naps - patient on O2 3L while not on bipap - cardio following, Dr. Minor - pulm following, Dr. Tom - nephro following - per nephrology will hold off on HD and continue to diuresis - per surgery AV fistula will be done outpatient - transfused 1 unit RBC, HgB improved - PT evaluation, recommended [facility] - awaiting placement 2. respiratory acidosis- resolved - ABG has improved, pH within normal limits - cont bipap setting at night and while napping - IV lasix and milirnone were stopped - cont Bumex 3 q8 - pulm following, Dr. Tom 3. CKD - appears be at baseline - lasix IV and milirnone were stopped - per nephrology will hold off on HD and continue to diuresis - cont to monitor - cont home med calcitriol - no immediate plans for HD - per surgery AV fistula will be done outpatient - nephro following 4. anemia - patient near baseline, improvement after blood transfusion - cont home med feosol - pt was given 1 dose of darbepoetin per instructor adjunct pharmacy technician - transfuse 1 unit RBC on 01/21 - hgb improved - cont to monitor - instructor adjunct pharmacy technician consulted 5. hyperkalemia - mildly elevated - patient is CKD will hold any medications unless greatly elevated - cont to monitor - nephro following 6.HTN - cont home meds coreg, hydralazine, losartan - cont to monitor 7. DM - ISSS- low - finger sticks ACHS ppx - GI ppx protonix - DVT ppx heparin <Adrian Lang - Last Filed: 02/22/17 09:52> Objective - Vital Signs/Intake and Output Vital Signs (last 24 hours): Temp Pulse Resp BP Pulse Ox 98.0 F 59 L 18 140/70 97 01/30/17 08:00 01/30/17 08:00 01/30/17 08:00 01/30/17 09:31 01/30/17 08:00 - Labs Labs: 01/30/17 11:20 01/30/17 11:20 PT 11.7 Seconds (9.9-11.8) 01/16/17 13:00 INR 1.08 (0.93-1.08) 01/16/17 13:00 APTT 25.3 Seconds (23.7-30.8) 01/16/17 13:00 Attending/Attestation - Attestation I have personally seen and examined this patient.: Yes I have fully participated in the care of the patient.: Yes I have reviewed all pertinent clinical information, including history, physical exam and plan: Yes Notes (Text): 02/22/17 09:52 Medical record note made by the resident after discussion with my direction and input after the patient was personally seen and examined by me. I have reviewed the chart and agree that the record accurately reflects by personal performance of the history, physical exam, data review, and medical decision-making, in the course for the patient. I have also personally directed the plan of care.
--- NOTE | 2017-01-25 15:25 | PN ---
DATE: 01/25/2017 The patient is in room 573, bed 3. REASON FOR CONSULTATION AND FOLLOWUP: Shortness of breath, coronary artery disease, congestive heart failure, morbid obesity, pulmonary hypertension. HISTORY OF PRESENT ILLNESS: A 46-year-old patient who is known to have morbid obesity, severe pulmon brenden hypertension, chronic obstructive pulmonary disease, chronic kidney disease, congestive heart pavan lure; coronary artery disease, status post cardiac catheterization, history of stents in the past. T he patient's cardiac catheterization revealed 2-vessel disease and pulmonary hypertension. The patie nt is now feeling much better. The patient is lying flat in bed without any cardiac symptoms. PHYSICAL EXAMINATION: VITAL SIGNS: Blood pressure 133/47, respirations 16, pulse 66, temperature 97.9. HEENT: Head is normocephalic. Eyes: Pupils normal. Conjunctivae slightly pale. NECK: JVP low. Carotid equal. THORAX: AP diameter normal. LUNGS: Clear. CARDIOVASCULAR: S1, S2. ABDOMEN: Protuberant, no organomegaly. EXTREMITIES: No clubbing, no cyanosis. LABORATORY DATA: WBC 5.1, hemoglobin 9.9, hematocrit 31.6, platelets 198. Sodium 136, potassium 5.1 , BUN 58, creatinine 3.9, random sugar 135. AST, ALT normal. Total protein 5.9, albumin 2.8. DIAGNOSES: Decompensated congestive heart failure, acute on chronic; systolic dysfunction; renal ins ufficiency, creatinine clearance 58 mL, stage IV-V chronic kidney disease; diabetes, hypertension, hy perlipidemia, morbid obesity, pulmonary hypertension, coronary artery disease. PLAN: We will continue present therapy. Angioplasty and stent was not done because patient does not have any chest pain and there is a danger that with the dye load patient may go into renal failure f urther and may need dialysis, so we will wait to do angioplasty and stent insertion when patient goes on dialysis, unless he starts getting acute coronary syndromes. The patient is presently on hydrala zine 50 mg t.i.d., Bumex 3 mg b.i.d., Coreg 25 b.i.d., Cozaar 25 mg daily, aspirin 81 mg daily, edil us sulfate 324 mg p.o. daily, heparin 5000 units subQ q. 12 hours. Will follow with you. Advised jarvis hernandez to lose weight. Lisa Lei MD cc: [id number] TT: 01/25/2017 15:24:33 Confirmation # [id number] Dictation # [id number] mn
[2017-01-25 16:18] VITALS: RESP 18
[2017-01-25 18:10] LABS: LDH PLEURAL FLUID 60 U/L (())
[2017-01-25] MEDS ORDERED: Ferric Sodium Gluconat Complex 62.5 mg/5 ml Vial IVPB SCH (18:30)
[2017-01-26] MEDS: Albuterol-Ipratrop 3 mg / 0.5 (3 ml) UD IH SCH ×3 (07:25→20:19)
[2017-01-26 07:31] LABS: ADD MANUAL DIFF? NO
[2017-01-26 07:39] LABS: BASO # 0.01 K/mm3 (0.0-2.0); BASO % 0.2 % (0.0-3.0); EOS # 0.1 (0.0-0.7); EOS % 1.2 % (1.5-5.0); GRAN # 3.65 (1.4-6.5); GRAN % 71.8 % (50.0-68.0); HEMATOCRIT 29.5 % (42.0-52.0); LYMPH % 19.1 % (22.0-35.0); MEAN CELL VOLUME 88.6 fL (80.0-105.0); MEAN CORPUSCULAR HEMOGLOBIN 27.6 pg (25.0-35.0); MEAN CORPUSCULAR HGB CONC 31.2 g/dl (31.0-37.0); MEAN PLATELET VOLUME 9.4 fl (7.0-11.0); MONO # 0.4 (0.1-0.6); MONO % 7.7 % (1.0-6.0); PLATELET COUNT 210 10^3/uL (120.0-450.0); RED CELL DISTRIBUTION WIDTH 15.2 % (11.5-14.5); WHITE BLOOD COUNT 5.1 10^3/ul (4.5-11.0)
[2017-01-26 07:47] LABS: ALB/GLOB RATIO 0.9 (1.1-1.8); BILIRUBIN,TOTAL 0.3 mg/dL (0.2-1.3); CALCIUM 8.4 mg/dL (8.4-10.5); PHOSPHOROUS 4.5 mg/dL (2.5-4.5); POTASSIUM 5.1 mmol/L (3.6-5.0); TOTAL PROTEIN 6.1 g/dL (5.8-8.3)
[2017-01-26] MEDS: Insulin Reg-LOW-Coverage SC SCH ×3 (08:30→22:34)
--- NOTE | 2017-01-26 08:52 | PN ---
DATE: 01/26/2017 SUBJECTIVE: The patient appears very comfortable at rest. He is not short of breath. PHYSICAL EXAMINATION: VITAL SIGNS: Temperature is 97.4, pulse 68, respirations 18, blood pressure 114 /44. Oxygen saturation on nasal cannula is 96%-99%. HEENT: Normocephalic, atraumatic. NECK: Positive JVD. CARDIOVASCULAR: Positive S1, S2, positive S3 gallop. LUNGS: Minimal crackles at the bases. Otherwise, clear. EXTREMITIES: Less edema. No cyanosis, no clubbing. Calves are nontender to palpation. GASTROINTESTINAL: Abdomen is soft, nontender, nondistended. Bowel sounds are positive. SKIN: No acute rash. NEUROLOGIC: Limited at the present time. PERTINENT LABORATORY DATA: Pleural fluid cytology -- negative for malignant cells. IMPRESSION: 1. Recurrent congestive heart failure. 2. Dilated cardiomyopathy. 3. Coronary artery disease. 4. Respiratory failure. 5. Right pleural effusion. Status post thoracentesis. 6. Obstructive sleep apnea. 7. Worsening renal dysfunction. PLAN: The patient appears very comfortable this morning. He is not short of breath at rest. He states he is feeling much better overall. On physical exam , there are much less crackles noted at the bases. In addition, the alveolar arterial gradient is significantly decreased. Oxygen saturation on nasal cannula is now 96%-99%. I will continue with the current respiratory treatments for now. The patient does remain on nasal cannula during the day and BiPAP at night. However, I did meet with the [employer] signs and displays sales representative and discussed the patient with him at length yesterday. The patient will have a Trilogy ventilation set up at home. He is well aware and understands the process. I would continue with the diuresis as per renal and cardiology. Inputs are noted. The clinical status of the patient is significantly improved -- compared to the initial presentation. However, again, the overall status/ prognosis of this patient - with multiple medical problems - remains guarded. I will discuss the above with the attending physician. Kem Tom MD cc: [id number] TT: 01/26/2017 08:51:34 Confirmation # [id number] Dictation # [id number] jesse [place]
--- NOTE | 2017-01-26 10:19 | CP.PCM.PN ---
<Kailee Mcgregor - Last Filed: 01/26/17 10:15> Subjective - Date & Time of Evaluation Date of Evaluation: 01/26/17 Time of Evaluation: 10:15 - Subjective Subjective: PGY-1 Medicine progress note Patient seen and examined at bedside. No acute distress. Nurse reports no events overnight. Patient on bipap overnight. He states that he is doing overall better. Patient denies chest pain, fevers, n/v/d/c, urinary symptoms. He continues to desat without oxygen. Patient states that he does not want to go home with O2 however he has difficultly breathing when not on O2. Objective - Vital Signs/Intake and Output Vital Signs (last 24 hours): Temp Pulse Resp BP Pulse Ox 97.6 F 63 18 176/86 H 94 L 01/26/17 07:47 01/26/17 07:47 01/26/17 07:47 01/26/17 07:47 01/26/17 07:47 Intake and Output: 01/26/17 01/26/17 06:59 18:59 Intake Total 700 Output Total 600 Balance 100 - Medications Medications: Current Medications Albuterol/Ipratropium (Duoneb 3 Mg/0.5 Mg (3 Ml) Ud) 3 ml IH TIDRESP [facility] Last Admin: 01/26/17 07:25 Dose: 3 ml Aripiprazole (Abilify) 5 mg PO DAILY [facility] Last Admin: 01/25/17 10:08 Dose: 5 mg Aspirin (Ecotrin) 81 mg PO DAILY [facility] Last Admin: 01/25/17 10:08 Dose: 81 mg Bumetanide (Bumex) 3 mg PO BID [facility] Last Admin: 01/25/17 19:34 Dose: 3 mg Calcitriol (Rocaltrol) 0.25 mcg PO QAM [facility] Last Admin: 01/25/17 10:07 Dose: 0.25 mcg Carvedilol (Coreg) 25 mg PO BID [facility] Last Admin: 01/25/17 19:34 Dose: Not Given Ferrous Sulfate (Feosol) 324 mg PO QAM [facility] Last Admin: 01/25/17 10:08 Dose: 324 mg Heparin Sodium (Porcine) (Heparin) 5,000 units SC Q12 [facility] PRN Reason: Protocol Last Admin: 01/25/17 21:53 Dose: 5,000 units Hydralazine HCl (Apresoline) 50 mg PO TID [facility] Iron Sucrose 100 mg/ Sodium (Chloride) 105 mls @ 210 mls/hr IVPB DAILY [facility] Insulin Human Regular (Humulin R Low) 0 units SC ACHS [facility] PRN Reason: Protocol Last Admin: 01/25/17 21:53 Dose: Not Given Losartan Pot[facility]) [facility] [place] Last Admin: 01/25/17 10:08 Dose: 25 mg Magnesium Oxide (Mag-Ox) 400 mg PO QAM [facility] Last Admin: 01/25/17 10:07 Dose: 400 mg Pantoprazole Sodium (Protonix Ec Tab) [facility] [place] Last Admin: 01/25/17 10:08 Dose: 40 mg Polyethylene Glycol (Miralax) 17 gm PO BID [facility] Last Admin: 01/25/17 18:00 Dose: 17 gm - Labs Labs: 01/26/17 07:29 01/26/17 07:29 PT 11.7 Seconds (9.9-11.8) 01/16/17 13:00 INR 1.08 (0.93-1.08) 01/16/17 13:00 APTT 25.3 Seconds (23.7-30.8) 01/16/17 13:00 - Constitutional Appears: Well, No Acute Distress - Head Exam Head Exam: ATRAUMATIC, NORMOCEPHALIC - Eye Exam Eye Exam: Normal appearance - ENT Exam ENT Exam: Mucous Membranes Moist - Respiratory Exam Respiratory Exam: Clear to Ausculation Bilateral, NORMAL BREATHING PATTERN. absent: Decreased Breath Sounds, Rhonchi, Wheezes, Respiratory Distress Additional comments: on NC - Cardiovascular Exam Cardiovascular Exam: REGULAR RHYTHM. absent: Tachycardia, Murmur - GI/Abdominal Exam GI & Abdominal Exam: Distended, Soft, Hernia, Normal Bowel Sounds. absent: Firm , Guarding, Tenderness - Extremities Exam Extremities Exam: Normal Inspection Additional comments: trace pitting edema - Neurological Exam Neurological Exam: Alert, Awake, Oriented x3 - Skin Skin Exam: Dry, Intact, Normal Color, Warm Assessment and Plan - Assessment and Plan (Free Text) Assessment: 46 yo male with PMH of DM, HTN, CKD, CAD, KARON presented with progressively worsening SOB and anasarca due to CHF exacerbation and respiratory acidosis. CXR showed diffuse infiltrates and vascular congestion, pulm edema. repeat cxr shows slight improvement in CHF. Patient was on bipap. ABG showed improvement of acidosis. Patient was transfused 1 unit RBC. Patient had thoracentesis and 2100cc was removed. Patient is awaiting placement. Plan: 1. CHF exacerbation with SOB and anasarca - repeat CXR on 01/23/17 shows improvement of CHF, decrease pleural effusion - afebrile without leukocytosis - cont bumex PO - will cont bipap at night and during naps - patient on O2 3L while not on bipap - patient had thoracentesis, which showed transudative fluid - cardio following, Dr. Minor - pulm following, Dr. Tom - nephro following - per nephrology will hold off on HD and continue to diuresis - per surgery AV fistula will be done outpatient - transfused 1 unit RBC, HgB improved - PT evaluation, recommended [facility] - awaiting placement - patient is be discharged on O2 and will start trilogy ventilation at home per pulm 2. respiratory acidosis- resolved - ABG has improved, pH within normal limits - cont bipap setting at night and while napping - IV lasix and milirnone were stopped - cont Bumex 3 q8 - pulm following, Dr. Tom 3. CKD - appears be at baseline - lasix IV and milirnone were stopped, on PO bumex - per nephrology will hold off on HD and continue to diuresis - cont to monitor - cont home med calcitriol - per surgery AV fistula will be done outpatient - nephro following 4. anemia - patient near baseline, improvement after blood transfusion - cont home med feosol - pt was given 1 dose of darbepoetin per second time worker - transfuse 1 unit RBC on 01/21 - hgb improved - cont to monitor - second time worker following 5. hyperkalemia - mildly elevated, 5.1 this morning - patient is CKD will hold any medications unless greatly elevated - cont to monitor - nephro following 6.HTN - cont home meds coreg, hydralazine, losartan - coreg and hydralazine were increased - cont to monitor 7. DM - ISSS- low - finger sticks ACHS ppx - GI ppx protonix - DVT ppx heparin <Adrian Lang - Last Filed: 02/22/17 09:30> Objective - Vital Signs/Intake and Output Vital Signs (last 24 hours): Temp Pulse Resp BP Pulse Ox 98.0 F 59 L 18 140/70 97 01/30/17 08:00 01/30/17 08:00 01/30/17 08:00 01/30/17 09:31 01/30/17 08:00 - Labs Labs: 01/30/17 11:20 01/30/17 11:20 PT 11.7 Seconds (9.9-11.8) 01/16/17 13:00 INR 1.08 (0.93-1.08) 01/16/17 13:00 APTT 25.3 Seconds (23.7-30.8) 01/16/17 13:00 Attending/Attestation - Attestation I have personally seen and examined this patient.: Yes I have fully participated in the care of the patient.: Yes I have reviewed all pertinent clinical information, including history, physical exam and plan: Yes Notes (Text): 02/22/17 09:30 Medical record note made by the resident after discussion with my direction and input after the patient was personally seen and examined by me. I have reviewed the chart and agree that the record accurately reflects by personal performance of the history, physical exam, data review, and medical decision-making, in the course for the patient. I have also personally directed the plan of care.
[2017-01-26] MEDS: Pantoprazole 40 mg EC Tab PO SCH (10:54)
[2017-01-26] MEDS: Magnesium Oxide 400 mg Tab UD PO SCH (10:55)
[2017-01-26] MEDS: POLYETHYLENE GLYCOL 3350 17 GM/Dose PACKET PO SCH (11:00)
--- NOTE | 2017-01-26 14:35 | PN ---
DATE: 01/26/2017 REASON FOR CONSULTATION AND FOLLOWUP: Shortness of breath, coronary artery disease, congestive heart failure, morbid obesity, pulmonary hypertension, renal insufficiency. BRIEF CLINICAL HISTORY: A 46-year-old male, obese, with past medical history significant for morbid obesity, pulmonary hypertension, chronic obstructive pulmonary disease, chronic kidney disease, conge stive heart failure, coronary artery disease, status post cardiac catheterization, medical treatment for now, 2-vessel disease. Lying flat on the bed. Denies any chest pain, shortness of breath, any p alpitation. PHYSICAL EXAMINATION: VITAL SIGNS: Temperature afebrile, heart rate 60, blood pressure 176/86. HEENT: PERRLA. Extraocular muscles intact. NECK: Supple. No carotid bruits. No thyromegaly. CHEST: Clear to auscultation. HEART: S1, S2 regular. ABDOMEN: Soft. EXTREMITIES: Clubbing, cyanosis negative. LABORATORY DATA: Blood workup as follows: WBC ____, hemoglobin ____, hematocrit 29.5, platelet coun t 210. Chemistry shows sodium ____, potassium 5.0, chloride 95, carbon dioxide 34, anion gap of 12, BUN ____, creatinine 3.9. IMPRESSION: Stage IV-V chronic kidney disease, morbid obesity, body mass index 41.7 kg/m2, status po st cardiac catheterization, 2-vessel coronary artery disease, creatinine clearance decreased to 17, m orbid obesity, diabetes, hypertension, hyperlipidemia, chronic obstructive pulmonary disease, pulmona ry hypertension, stage IV-V chronic kidney disease. RECOMMENDATION: Continue aggressive medical treatment. PTCA was not contemplated because the patient may end up in dialysis, 60%-70% disease. We will wait. Once the patient starts dialysis or renal fun ction improves, though is unlikely, but once dialysis, patient will have the PTCA of LAD and ramus. For now, continue aggressive medical treatment. We will follow with you. We will put aggressive ant ihypertensive medication. We will put hydralazine p.r.n. Avoid nephrotoxic medication. Continue hy dralazine 50 mg 3 times a day. Continue Coreg. Pressure is still up. Will add 10 mg of Norvasc if the blood pressure remains elevated. Thank you, Dr. Garcia, for providing the opportunity in taking care of the patient. Lisa Minor MD cc: [id number] TT: 01/26/2017 14:35:05 Confirmation # [id number] Dictation # [id number] rn
--- NOTE | 2017-01-26 23:14 | CP.PCM.PN ---
Subjective - Date & Time of Evaluation Date of Evaluation: 01/26/17 Time of Evaluation: 11:30 - Subjective Subjective: Patient reporting no issues breathing, ambulating without sob using portable O2; Objective - Vital Signs/Intake and Output Vital Signs (last 24 hours): Temp Pulse Resp BP Pulse Ox 98.7 F 67 18 161/67 H 96 01/26/17 16:15 01/26/17 17:43 01/26/17 16:15 01/26/17 17:43 01/26/17 16:15 Intake and Output: 01/26/17 01/27/17 18:59 06:59 Intake Total 980 780 Output Total 1600 850 Balance -620 -70 - Medications Medications: Current Medications Albuterol/Ipratropium (Duoneb 3 Mg/0.5 Mg (3 Ml) Ud) 3 ml IH TIDRESP [facility] Last Admin: 01/26/17 20:19 Dose: 3 ml Amlodipine Besylate (Norvasc) 10 mg PO DAILY [facility] Aripiprazole (Abilify) 5 mg PO DAILY [facility] Last Admin: 01/26/17 10:54 Dose: 5 mg Aspirin (Ecotrin) 81 mg PO DAILY [facility] Last Admin: 01/26/17 10:54 Dose: 81 mg Bumetanide (Bumex) 3 mg PO BID [facility] Last Admin: 01/26/17 17:40 Dose: 3 mg Calcitriol (Rocaltrol) 0.25 mcg PO MWF [facility] Carvedilol (Coreg) 25 mg PO BID [facility] Last Admin: 01/26/17 11:00 Dose: 25 mg Ferrous Sulfate (Feosol) 324 mg PO QAM [facility] Last Admin: 01/26/17 10:54 Dose: 324 mg Heparin Sodium (Porcine) (Heparin) 5,000 units SC Q12 [facility] PRN Reason: Protocol Last Admin: 01/26/17 22:34 Dose: 5,000 units Hydralazine HCl (Apresoline) 50 mg PO TID [facility] Last Admin: 01/26/17 17:43 Dose: 50 mg Iron Sucrose 100 mg/ Sodium (Chloride) 105 mls @ 210 mls/hr IVPB DAILY [facility] Last Admin: 01/26/17 10:52 Dose: 210 mls/hr Insulin Human Regular (Humulin R Low) 0 units SC ACHS [facility] PRN Reason: Protocol Last Admin: 01/26/17 22:34 Dose: Not Given Losartan Pot[facility] ([facility]ar) [facility] [place] Last Admin: 01/26/17 10:54 Dose: 25 mg Magnesium Oxide (Mag-Ox) 400 mg PO QAM [facility] Last Admin: 01/26/17 10:55 Dose: 400 mg Pantoprazole Sodium (Protonix Ec Tab) 40 mg PO QAM [facility] Last Admin: 01/26/17 10:54 Dose: 40 mg Polyethylene Glycol (Miralax) 17 gm PO BID [facility] Last Admin: 01/26/17 11:00 Dose: Not Given - Labs Labs: 01/26/17 07:29 01/26/17 07:29 PT 11.7 Seconds (9.9-11.8) 01/16/17 13:00 INR 1.08 (0.93-1.08) 01/16/17 13:00 APTT 25.3 Seconds (23.7-30.8) 01/16/17 13:00 - Constitutional Appears: Well, No Acute Distress - Head Exam Head Exam: NORMAL INSPECTION - Eye Exam Eye Exam: Normal appearance. absent: Scleral icterus - ENT Exam ENT Exam: Mucous Membranes Moist - Neck Exam Additional comments: large neck circumference - Respiratory Exam Respiratory Exam: Clear to Ausculation Bilateral, NORMAL BREATHING PATTERN. absent: Rales, Rhonchi, Wheezes - Cardiovascular Exam Cardiovascular Exam: RRR, +S1, +S2 - GI/Abdominal Exam GI & Abdominal Exam: Soft. absent: Distended, Tenderness - Extremities Exam Additional comments: moderate leg edema, improved - Neurological Exam Neurological Exam: Alert, Awake - Psychiatric Exam Psychiatric exam: Normal Affect, Normal Mood - Skin Skin Exam: Warm. absent: Cyanosis Assessment and Plan (1) CHF exacerbation Assessment & Plan: Continues to lose weight with diuretics, lost 0.6 pounds since yesterday, acceptable amount of diuresis with patient awaiting discharge to rehab facility; -continue bumex PO 3 mg bid Status: Acute (2) Chronic kidney disease (CKD), stage V Assessment & Plan: Renal function stable during admission; stable electrolyte status, volume status improving; no indication for initiating dialysis at this point but needs outpatient placement of AVF/AVG as soon as possible to prepare for HD in near future; -continue diuretics and ARB Status: Chronic (3) HTN (hypertension) Assessment & Plan: Uncontrolled; on higher dose of coreg and hydralazine; monitor; Status: Chronic (4) Hypercapnic respiratory failure Assessment & Plan: Resolving, with stable bicarb on chem panel; monitor, needs CPAP at home; Status: Acute
[2017-01-27] MEDS: Albuterol-Ipratrop 3 mg / 0.5 (3 ml) UD IH SCH ×4 (07:59→19:58)
[2017-01-27 08:03] LABS: ADD MANUAL DIFF? NO
[2017-01-27 08:04] LABS: BILIRUBIN,TOTAL 0.3 mg/dL (0.2-1.3); CALCIUM 8.7 mg/dL (8.4-10.5); TOTAL PROTEIN 5.8 g/dL (5.8-8.3)
[2017-01-27 08:13] LABS: EOS % 0.8 % (1.5-5.0); GRAN # 3.52 (1.4-6.5); GRAN % 70.8 % (50.0-68.0); HEMATOCRIT 29.9 % (42.0-52.0); LYMPH % 19.1 % (22.0-35.0); MEAN CELL VOLUME 88.7 fL (80.0-105.0); MEAN CORPUSCULAR HEMOGLOBIN 28.2 pg (25.0-35.0); MEAN CORPUSCULAR HGB CONC 31.8 g/dl (31.0-37.0); MEAN PLATELET VOLUME 9.7 fl (7.0-11.0); MONO # 0.5 (0.1-0.6); MONO % 9.3 % (1.0-6.0); PLATELET COUNT 196 10^3/uL (120.0-450.0); RED CELL DISTRIBUTION WIDTH 15.1 % (11.5-14.5)
[2017-01-27] MEDS: Insulin Reg-LOW-Coverage SC SCH ×5 (08:16→23:08)
--- NOTE | 2017-01-27 08:32 | PN ---
DATE: 01/27/2017 PULMONARY NOTE SUBJECTIVE: The patient appears very comfortable at rest. He is not short of breath. PHYSICAL EXAMINATION: VITAL SIGNS: (Last noted in the computer): Temperature is 98.7, pulse 72, respirations 18, blood pressure 161/67. Oxygen saturation on nasal cannula is 96%. HEENT: Normocephalic, atraumatic. NECK: Positive JVD. CARDIOVASCULAR: Positive S1, S2. Positive S3 gallop. LUNGS: Less crackles at the bases. Otherwise, clear. EXTREMITIES: Less edema. No cyanosis, no clubbing. Calves are nontender to palpation. GASTROINTESTINAL: Abdomen is soft, nontender, nondistended. Bowel sounds are positive. SKIN: No acute rash. NEUROLOGIC: Limited at the present time. PERTINENT LABORATORY DATA: Additional pleural fluid studies: Total protein under 3.0. LDH 60. IMPRESSION: 1. Recurrent congestive heart failure. 2. Dilated cardiomyopathy. 3. Coronary artery disease. 4. Respiratory failure. 5. Transudative right pleural effusion. Status post thoracentesis. 6. Obstructive sleep apnea. 7. Worsening renal dysfunction. PLAN: The patient appears very comfortable this morning. He is not short of breath at rest. He states he is feeling much, much better overall. On physical exam, there is no significant bronchospasm noted. In addition, the oxygen saturation on nasal cannula is 96%. The patient does wear his BiPAP at night. However, again, he will be transitioned to Trilogy ventilation at home. I did note the additional pleural fluid studies - as above. The pleural fluid is a transudate - with a total protein less than 3.0. I would continue with the diuresis, as per cardiology and renal. Clinical status of the patient is significantly improved - compared to the initial presentation. However, again, the overall status/prognosis for this patient - with serious multiple medical problems - remains guarded. I will discuss the above with the attending physician. Kem Tom MD cc: [id number] TT: 01/27/2017 08:32:19 Confirmation # [id number] Dictation # [id number] jesse [place]
[2017-01-27] MEDS: Pantoprazole 40 mg EC Tab PO SCH (09:42)
[2017-01-27] MEDS: Magnesium Oxide 400 mg Tab UD PO SCH (09:43)
[2017-01-27] MEDS: POLYETHYLENE GLYCOL 3350 17 GM/Dose PACKET PO SCH ×2 (09:43→17:35)
--- NOTE | 2017-01-27 13:04 | PN ---
DATE: 01/27/2017 The patient is a patient of Dr. Lang. I see him resting comfortably in bed. He is feeling well. I understand the plans for subacute rehab tomorrow. MEDICATIONS: He is currently on Abilify, Apresoline, Bumex, Coreg, Cozaar, DuoNeb, Ecotrin, Feosol, heparin, insulin, iron, magnesium, MiraLax, Norvasc, Protonix. PHYSICAL EXAMINATION: VITAL SIGNS: Temp 98.8, 62 pulse, 138/61 blood pressure, 18 respiratory rate, 95% O2 sat on nasal cannula. HEAD: Atraumatic, normocephalic. Throat is moist. NECK: Supple. HEART: Regular rate. LUNGS: Clear to auscultation with decreased breath sounds. ABDOMEN: Soft, obese, nontender. EXTREMITIES: No edema. LABORATORY DATA: He has a 5 white count, 9.5 hemoglobin, 29.9 hematocrit with 196 platelets. He has a 135 sodium. Potassium is 5. BUN is 61. Creatinine is 3.8 - getting better slowly. GFR is 17. Sugar is 102, calcium is 8.7. Total bili is 0.3. AST is 58. ALT is 49, alk phos 84. He is being seen by pulmonary, renal, cardiology, hematology/oncology. He has recurrent congestive heart failure, dilated cardiomyopathy, coronary artery disease, respiratory failure, obstructive sleep apnea, and renal insufficiency. We will check his labs tomorrow. Hopefully, he will be able to go to rehab soon when they have a bed available. David Ryan DO cc: [id number] TT: 01/27/2017 13:03:07 Confirmation # [id number] Dictation # [id number] jn [place]
--- NOTE | 2017-01-27 15:11 | PN ---
DATE: 01/27/2017 REASON FOR CONSULTATION AND FOLLOWUP: Shortness of breath, coronary artery disease, congestive heart failure, morbid obesity, pulmonary hypertension, renal insufficiency. BRIEF CLINICAL HISTORY: A 46-year-old male with past medical history significant for morbid obesity, pulmonary hypertension, chronic obstructive pulmonary disease, chronic kidney disease, congestive he art failure, coronary artery disease, status post cardiac catheterization, medical treatment, 2 -vessel disease. Lying flat in bed. Denies any chest pain, shortness of breath, any palpitation. PHYSICAL EXAMINATION: VITAL SIGNS: Temperature afebrile, heart rate 62, blood pressure 138/61. HEENT: PERRLA. Extraocular muscles intact. NECK: Supple. No carotid bruits. No thyromegaly. CHEST: Clear to auscultation. HEART: S1, S2 regular. ABDOMEN: Soft. EXTREMITIES: Clubbing, cyanosis negative. BLOOD WORKUP: WBC 5, hemoglobin 9.5, hematocrit 29.9, platelet count 196. Chemistry shows sodium __ ___, potassium 5, chloride 95, carbon dioxide 35, anion gap of 10, BUN 61, creatinine 3.8. IMPRESSION: Chronic kidney disease, stage IV-V chronic kidney disease, morbid obesity, diabetes, hyp ertension, hyperlipidemia, pulmonary hypertension, 2 vessels coronary artery disease, medical treatme nt for now, asymptomatic, history of percutaneous transluminal coronary angioplasty in the past. RECOMMENDATION: Avoid nephrotoxic medication. Continue hydralazine, continue Coreg. Now, his blood pressure is well controlled. Discussed with the mother. Blood pressure is 138/61 now on adding the amlodipine. Continue hydralazine. Monitor renal function. Discussed with the mother that patient' s overall condition, result of cardiac catheterization, and long-term planning. Then once the renal function improves or patient starts dialysis, we will consider percutaneous transluminal coronary ang ioplasty. For now, we will treat medically. Thank you, Dr. Garcia, for providing us the opportunity in taking care of the patient. We will fol low with you. Lisa Minor MD cc: [id number] TT: 01/27/2017 15:05:07 Confirmation # [id number] Dictation # [id number] en
--- NOTE | 2017-01-27 22:16 | CP.PCM.PN ---
Subjective - Date & Time of Evaluation Date of Evaluation: 01/27/17 Time of Evaluation: 10:45 - Subjective Subjective: Denies shortness of breath at rest or with ambulating (without O2); Objective - Vital Signs/Intake and Output Vital Signs (last 24 hours): Temp Pulse Resp BP Pulse Ox 98.3 F 62 18 137/78 96 01/27/17 16:47 01/27/17 17:34 01/27/17 16:47 01/27/17 17:34 01/27/17 16:47 Intake and Output: 01/27/17 01/28/17 18:59 06:59 Intake Total 520 780 Output Total 800 1000 Balance -280 -220 - Medications Medications: Current Medications Albuterol/Ipratropium (Duoneb 3 Mg/0.5 Mg (3 Ml) Ud) 3 ml IH TIDRESP [facility] Last Admin: 01/27/17 19:58 Dose: 3 ml Amlodipine Besylate (Norvasc) 10 mg PO DAILY [facility] Last Admin: 01/27/17 09:47 Dose: 10 mg Aripiprazole (Abilify) 5 mg PO DAILY [facility] Last Admin: 01/27/17 09:43 Dose: 5 mg Aspirin (Ecotrin) 81 mg PO DAILY [facility] Last Admin: 01/27/17 09:42 Dose: 81 mg Bumetanide (Bumex) 3 mg PO BID [facility] Last Admin: 01/27/17 17:34 Dose: 3 mg Calcitriol (Rocaltrol) 0.25 mcg PO MWF [facility] Carvedilol (Coreg) 25 mg PO BID [facility] Last Admin: 01/27/17 17:34 Dose: 25 mg Ferrous Sulfate (Feosol) 324 mg PO QAM [facility] Last Admin: 01/27/17 09:42 Dose: 324 mg Heparin Sodium (Porcine) (Heparin) 5,000 units SC Q12 [facility] PRN Reason: Protocol Last Admin: 01/27/17 21:57 Dose: 5,000 units Hydralazine HCl (Apresoline) 50 mg PO TID [facility] Last Admin: 01/27/17 17:34 Dose: 50 mg Iron Sucrose 100 mg/ Sodium (Chloride) 105 mls @ 210 mls/hr IVPB DAILY [facility] Last Admin: 01/27/17 09:43 Dose: 210 mls/hr Insulin Human Regular (Humulin R Low) 0 units SC ACHS [facility] PRN Reason: Protocol Last Admin: 01/27/17 17:21 Dose: Not Given Losartan Pot[facility] (Co[facility]ar) [facility] [place] Last Admin: 01/27/17 09:46 Dose: 25 mg Magnesium Oxide (Mag-Ox) 400 mg PO QAM [facility] Last Admin: 01/27/17 09:43 Dose: 400 mg Pantoprazole Sodium (Protonix Ec Tab) [facility] [place] Last Admin: 01/27/17 09:42 Dose: 40 mg Polyethylene Glycol (Miralax) 17 gm PO BID [facility] Last Admin: 01/27/17 17:35 Dose: Not Given - Labs Labs: 01/27/17 08:00 01/27/17 07:40 PT 11.7 Seconds (9.9-11.8) 01/16/17 13:00 INR 1.08 (0.93-1.08) 01/16/17 13:00 APTT 25.3 Seconds (23.7-30.8) 01/16/17 13:00 - Constitutional Appears: Well, Non-toxic, No Acute Distress - Head Exam Head Exam: NORMAL INSPECTION - Eye Exam Eye Exam: Scleral icterus - ENT Exam ENT Exam: Mucous Membranes Moist - Neck Exam Additional comments: large neck circumference - Respiratory Exam Respiratory Exam: Clear to Ausculation Bilateral, NORMAL BREATHING PATTERN - Cardiovascular Exam Cardiovascular Exam: REGULAR RHYTHM, +S1, +S2 - GI/Abdominal Exam GI & Abdominal Exam: Soft. absent: Distended, Tenderness - Extremities Exam Additional comments: Mild to moderate leg edema; - Neurological Exam Neurological Exam: Alert, Awake - Psychiatric Exam Psychiatric exam: Normal Affect, Normal Mood - Skin Skin Exam: Normal Color, Warm Assessment and Plan (1) CHF exacerbation Assessment & Plan: With systolic dysfunction; improved; continues to diurese and lose weight (2 lbs since yesterday); continue bumex 3 mg PO bid; Status: Acute (2) Chronic kidney disease (CKD), stage V Assessment & Plan: Needs AVF/AVG placement as soon as possible; should not wait until discharged from rehab, needs to be brought for renal and vascular f/u while he is there; Status: Chronic (3) HTN (hypertension) Assessment & Plan: Improved; continue current meds; Status: Chronic (4) Hypercapnic respiratory failure Assessment & Plan: Increasing bicarb on chem panel; vbg ordered to better assess; Status: Acute
[2017-01-28 07:18] LABS: ALB/GLOB RATIO 0.9 (1.1-1.8); BILIRUBIN,TOTAL 0.5 mg/dL (0.2-1.3); CALCIUM 8.5 mg/dL (8.4-10.5); POTASSIUM 4.9 mmol/L (3.6-5.0); TOTAL PROTEIN 6.1 g/dL (5.8-8.3)
[2017-01-28 07:21] LABS: HEMATOCRIT 30.1 % (42.0-52.0); MEAN CELL VOLUME 88.8 fL (80.0-105.0); MEAN CORPUSCULAR HGB CONC 31.6 g/dl (31.0-37.0); RED CELL DISTRIBUTION WIDTH 15.2 % (11.5-14.5); WHITE BLOOD COUNT 5.1 10^3/ul (4.5-11.0)
[2017-01-28] MEDS: Albuterol-Ipratrop 3 mg / 0.5 (3 ml) UD IH SCH ×3 (07:33→21:13)
--- NOTE | 2017-01-28 07:55 | PN ---
DATE: 01/28/2017 SUBJECTIVE: The patient appears comfortable this morning. He is not short of breath at rest. PHYSICAL EXAMINATION: VITAL SIGNS: Temperature is 98.3, pulse 75, respirations 18, blood pressure 137 /78. Oxygen saturation on nasal cannula is 96%. HEENT: Normocephalic, atraumatic. Positive JVD. CARDIOVASCULAR: Positive S1, S2. Positive S3 gallop. LUNGS: Minimal/less crackles at the bases. Otherwise, clear. EXTREMITIES: Less edema. No cyanosis, no clubbing. Calves are nontender to palpation. GASTROINTESTINAL: Abdomen is soft, nontender, nondistended. Bowel sounds are positive. SKIN: No acute rash. NEUROLOGIC: Limited at the present time. IMPRESSION: 1. Recurrent congestive heart failure. 2. Dilated cardiomyopathy. 3. Coronary artery disease. 4. Respiratory failure. 5. Transudative right pleural effusion. Status post thoracentesis. 6. Obstructive sleep apnea. 7. Worsening renal dysfunction. PLAN: The patient appears very comfortable this morning. He is not short of breath at rest. He states he is feeling much better overall. On physical exam , there is no significant bronchospasm noted. In addition, the alveolar- arterial gradient is significantly decreased. I will continue with the current nebulizer treatments for now. I would continue with the diuresis as per cardiology and renal. Evaluations are noted. Again, the patient will have Trilogy ventilation at home. The clinical status of this patient is certainly improved -- compared to the initial presentation. However, again, the overall status/prognosis for this patient does remain guarded. I will discuss the above with Dr. Garcia. Kem Tom MD cc: [id number] TT: 01/28/2017 07:54:36 Confirmation # [id number] Dictation # [id number] en MTDD
[2017-01-28] MEDS: Insulin Reg-LOW-Coverage SC SCH ×4 (08:30→23:09)
--- NOTE | 2017-01-28 08:36 | PN ---
DATE: 01/25/2017 A 46-year-old male with a history of diabetes, hypertension, morbid obesity, KARON on CPAP, CAD, CKD V, admitted with congestive heart failure exacerbation. Nephrology consulted for volume overload and p ossible initiation of dialysis. The patient continues to feel that his breathing has improved, able to ambulate. PHYSICAL EXAMINATION: VITAL SIGNS: This morning: Blood pressure 133/47, heart rate 66, respirations 16, temperature 97.9, O2 sat 99% on room air. GENERAL: In no distress, able to converse coherently in full sentences. HEENT: Moist mucous membranes. Nonicteric. CHEST: Clear to auscultation bilaterally. No rales, no rhonchi, no wheezes. HEART: S1, S2 positive. No murmurs, no rubs, no gallops. ABDOMEN: Soft, nontender, nondistended. Ventral hernia appreciated just left of midline. EXTREMITIES: Moderately edematous bilateral lower legs extending to thighs. LABORATORY DATA: This morning: WBC 5.1, hemoglobin 9.9, hematocrit 31.6, platelets 198. Sodium 136 , potassium 5.1, chloride 95, bicarbonate 34, BUN 58, creatinine 3.9, glucose 97, calcium 8.6 and alb umin 2.8. ASSESSMENT: 1. Chronic kidney disease IV/V. Relatively stable renal function. Borderline hyperkalemia noted. Volume status improving with diuresis. No indication to initiate dialysis at this point. Continue w ith diuretics. Continue with losartan for cardiac optimization despite mildly elevated potassium lev el. 2. Congestive heart failure exacerbation with mild systolic dysfunction. Adjusting p.o. Bumex over the last 3 days, now on 3 mg b.i.d.; lost 1 pound with this regimen since yesterday. Overall, much i mproved. Has lost since admission about 23 pounds. At this point, slowing down diuresis is adequate with goal to achieve 0.5-1 on weight loss per day. [place] weight should probably be around 260 pound s. 3. Hypertension. Better controlled today after increasing Coreg dose to 25 mg b.i.d. Agree with ho lding hydralazine for now. Continue losartan 25 mg daily as well as diuretics. 4. Hypercapnic respiratory failure. Overall improved. Needs to be adherent to CPAP at night. Bica rb on chemistry panel increasing. May reflect compensatory metabolic alkalosis and/or superimposed m etabolic acidosis due to diuretics. Will obtain venous gas to assess for degree of alkalosis. 5. Vascular access. Need to have arteriovenous fistula/AV graft be created as an outpatient o btained. 6. Anemia secondary to iron deficiency. Transfuse 1 unit packed red blood cells with appropriate in crease in hemoglobin and hematocrit. Will start IV iron infusion while here. Chester Perez MD cc: [id number] TT: 01/25/2017 20:24:00 Confirmation # [id number] Dictation # [id number] dn
[2017-01-28] MEDS: Magnesium Oxide 400 mg Tab UD PO SCH (10:13)
[2017-01-28] MEDS: Pantoprazole 40 mg EC Tab PO SCH (10:18)
[2017-01-28] MEDS: POLYETHYLENE GLYCOL 3350 17 GM/Dose PACKET PO SCH ×2 (10:19→17:09)
--- NOTE | 2017-01-28 10:39 | PN ---
DATE: 01/28/2017 The patient is being monitored for his CHF, CKD, anemia, diabetes and hypertension. The patient in bed today. This patient states he is still weak and does get short of breath when he tries to walk around. REVIEW OF SYSTEMS: There are no current chest pains, there is no change in GI or GI symptoms. PHYSICAL EXAMINATION: VITAL SIGNS: Note a temperature of 97.8, pulse is 70, blood pressure is ranging from 137-151/83, respirations are 18, pulse ox is 96% while on nasal cannula of flow of 3 liters. HEENT: His head is normocephalic, atraumatic. His conjunctivae are pale. His lids unremarkable. Sclerae are anicteric. NECK: Supple. There is no thyromegaly or masses. LUNGS: He still has some mild crackles in the bases. His respiratory effort is reasonable at rest. CARDIAC: S1, S2 distant. ABDOMEN: Soft, nontender, obese. No organomegaly or masses. EXTREMITIES: No current clubbing, cyanosis. No noted edema today. NEUROLOGIC: He is oriented x 3. LABORATORY DATA: His WBC count 5.1, his hemoglobin is 9.5, his platelet count is 207. His electrolytes note a sodium 137, potassium 4.9, chloride of 96, CO2 of 34, BUN of 67. His creatinine is 3.9. His AST is 63. His albumin is 2.9. ASSESSMENT: 1. Congestive heart failure. 2. Chronic kidney disease. 3. Anemia. 4. Hypertension. 5. Diabetes mellitus. 6. Electrolyte imbalances. PLAN: With noted crackles and noted hypoxia, I will give the patient an additional IV Lasix today. In addition, I will have the patient do physical therapy to see how his ambulation is as I feel with his continued weakness and debilitation, does need subacute rehabilitation to monitor his overall congestive heart failure status while increasing his exertional pace to monitor his oxygenation as well as his overall care to prevent rehospitalization. Continue with his CPAP. Nicholas Garcia MD cc: [id number] TT: 01/28/2017 10:38:31 Confirmation # [id number] Dictation # [id number] an MTDD
--- NOTE | 2017-01-28 14:53 | CP.PCM.PN ---
<[place] - Last Filed: 01/29/17 16:16> Subjective - Date & Time of Evaluation Date of Evaluation: 01/28/17 Time of Evaluation: 14:51 - Subjective Subjective: SURGERY NOTE FOR DR. RODRIGUEZ 46M seen and examined at bedside. Patient resting comfortably. No complaints. Objective - Vital Signs/Intake and Output Vital Signs (last 24 hours): Temp Pulse Resp BP Pulse Ox 97.9 F 84 18 151/83 H 96 01/28/17 08:00 01/28/17 13:46 01/28/17 08:00 01/28/17 13:46 01/28/17 08:00 Intake and Output: 01/28/17 01/28/17 06:59 18:59 Intake Total 960 600 Output Total 1800 Balance -840 600 - Medications Medications: Current Medications Albuterol/Ipratropium (Duoneb 3 Mg/0.5 Mg (3 Ml) Ud) 3 ml IH TIDRESP [facility] Last Admin: 01/28/17 13:34 Dose: 3 ml Amlodipine Besylate (Norvasc) 10 mg PO DAILY [facility] Last Admin: 01/28/17 10:12 Dose: 10 mg Aripiprazole (Abilify) 5 mg PO DAILY [facility] Last Admin: 01/28/17 10:18 Dose: 5 mg Aspirin (Ecotrin) 81 mg PO DAILY [facility] Last Admin: 01/28/17 10:13 Dose: 81 mg Bumetanide (Bumex) 3 mg PO BID [facility] Last Admin: 01/28/17 10:12 Dose: 3 mg Calcitriol (Rocaltrol) 0.25 mcg PO MWF [facility] Last Admin: 01/28/17 10:13 Dose: 0.25 mcg Carvedilol (Coreg) 25 mg PO BID [facility] Last Admin: 01/28/17 10:19 Dose: 25 mg Ferrous Sulfate (Feosol) 324 mg PO QAM [facility] Last Admin: 01/28/17 10:12 Dose: 324 mg Heparin Sodium (Porcine) (Heparin) 5,000 units SC Q12 [facility] PRN Reason: Protocol Last Admin: 01/28/17 10:14 Dose: 5,000 units Hydralazine HCl (Apresoline) 50 mg PO TID [facility] Last Admin: 01/28/17 13:46 Dose: 50 mg Iron Sucrose 100 mg/ Sodium (Chloride) 105 mls @ 210 mls/hr IVPB DAILY [facility] Last Admin: 01/28/17 10:14 Dose: 210 mls/hr Insulin Human Regular (Humulin R Low) 0 units SC ACHS [facility] PRN Reason: Protocol Last Admin: 01/28/17 12:01 Dose: 1 units Losartan Potassium (Cozaar) [facility] [place] Admin: 01/28/17 10:13 Dose: 25 mg Magnesium Oxide (Mag-Ox) 400 mg PO QAM [facility] Last Admin: 01/28/17 10:13 Dose: 400 mg Pantoprazole Sodium (Protonix Ec Tab) 40 mg PO QAM [facility] Last Admin: 01/28/17 10:18 Dose: 40 mg Polyethylene Glycol (Miralax) 17 gm PO BID [facility] Last Admin: 01/28/17 10:19 Dose: 17 gm - Labs Labs: 01/28/17 06:00 01/28/17 06:00 PT 11.7 Seconds (9.9-11.8) 01/16/17 13:00 INR 1.08 (0.93-1.08) 01/16/17 13:00 APTT 25.3 Seconds (23.7-30.8) 01/16/17 13:00 - Constitutional Appears: Non-toxic, No Acute Distress - Head Exam Head Exam: ATRAUMATIC - Respiratory Exam Respiratory Exam: Clear to Ausculation Bilateral, NORMAL BREATHING PATTERN - Cardiovascular Exam Cardiovascular Exam: REGULAR RHYTHM, +S1, +S2 - GI/Abdominal Exam GI & Abdominal Exam: Soft. absent: Distended, Firm, Guarding, Rigid, Tenderness , Rebound - Extremities Exam Extremities Exam: Pedal Edema - Neurological Exam Neurological Exam: Alert, Awake Assessment and Plan - Assessment and Plan (Free Text) Assessment: 46M with kidney disease requiring dialysis. Patient underwent vein mapping showing large and patent cephalic veins. Plan: - Patient will need an AV fistula procedure - outpatient follow up to schedule the AVF Discussed with Dr. Jennifer Starr, PGY1 <Dave Rodriguez - Last Filed: 01/31/17 08:49> Subjective - Date & Time of Evaluation Date of Evaluation: 01/29/17 Time of Evaluation: 17:30 Objective - Vital Signs/Intake and Output Vital Signs (last 24 hours): Temp Pulse Resp BP Pulse Ox 98.0 F 59 L 18 140/70 97 01/30/17 08:00 01/30/17 08:00 01/30/17 08:00 01/30/17 09:31 01/30/17 08:00 - Labs Labs: 01/30/17 11:20 01/30/17 11:20 PT 11.7 Seconds (9.9-11.8) 01/16/17 13:00 INR 1.08 (0.93-1.08) 01/16/17 13:00 APTT 25.3 Seconds (23.7-30.8) 01/16/17 13:00 Assessment and Plan - Assessment and Plan (Free Text) Assessment: Patient was seen and examined by me. I agree with assessment and plan as per resident's note.
--- NOTE | 2017-01-28 21:21 | PN ---
DATE: 01/28/2017 The patient in room 573, bed 3. REASON FOR CONSULTATION AND FOLLOWUP: Shortness of breath, coronary artery disease, congestive heart failure, morbid obesity, pulmonary hypertension, renal insufficiency. HISTORY OF PRESENT ILLNESS: A 46-year-old male with past medical history significant for morbid obes ity, pulmonary hypertension, chronic obstructive pulmonary disease, chronic kidney disease, congestiv e heart failure, 2-vessel coronary artery disease. The patient now is lying flat in bed without any cardiac symptoms like chest pain, shortness of breath, palpitation. He states when he walks on exert ion he gets some shortness of breath without any chest pain. PHYSICAL EXAMINATION: VITAL SIGNS: Blood pressure 130/65, respirations 18, pulse 60, temperature 98.3. HEAD: Normocephalic. EYES: Pupils normal. Conjunctivae slightly pale. NECK: JVP low. Carotid equal. THORAX: AP diameter normal. LUNGS: No significant rales. CARDIOVASCULAR: S1, S2. ABDOMEN: Protuberant, no organomegaly. EXTREMITIES: No clubbing, no cyanosis. LABORATORY DATA: WBC 5.1, hemoglobin 9.5, hematocrit 30.1, platelet 207. Sodium 137, potassium 4.9, BUN 67, creatinine 3.9. Random sugar 139. Total protein 6.1, albumin 2.9, AST 56, ALT 63, calcium 8.5. DIAGNOSES: Chronic kidney disease stage IV-V, morbid obesity, diabetes, hypertension, hyperlipidemia , pulmonary hypertension, 2 vessel coronary artery disease. Opts for medical treatment for now becau se the patient does not have any chest pain, also the risk of going into further exacerbation of rivera l failure going on dialysis with injection of dye. PLAN: The patient is on hydralazine 50 t.i.d., Coreg 25 b.i.d., Cozaar 25 mg daily, aspirin 81 mg da brenda, ferrous sulfate 324 daily, heparin 5000 units q. 12 hours, magnesium 400 daily, amlodipine 10 mg daily. The patient is getting iron sucrose 100 mg IV daily. We will continue present therapy and w ill follow with you. Lisa Lei MD cc: [id number] TT: 01/28/2017 21:21:16 Confirmation # [id number] Dictation # [id number] jn
[2017-01-29] MEDS: Albuterol-Ipratrop 3 mg / 0.5 (3 ml) UD IH SCH ×3 (07:18→20:09)
[2017-01-29] MEDS: Insulin Reg-LOW-Coverage SC SCH ×4 (07:30→22:21)
--- NOTE | 2017-01-29 07:43 | PN ---
DATE: 01/29/2017 SUBJECTIVE: The patient appears very comfortable this morning. He is not short of breath at rest. PHYSICAL EXAMINATION: VITAL SIGNS: Temperature is 98.3, pulse 72, respirations 18, blood pressure 151 /78. Last oxygen saturation - measured on nasal cannula - 95% to 96%. HEENT: Normocephalic, atraumatic. NECK: Positive JVD. CARDIOVASCULAR: Positive S1, S2. Positive S3 gallop. LUNGS: Minimal crackles at the bases. Otherwise, clear. EXTREMITIES: Less edema. No cyanosis, no clubbing. Calves are nontender to palpation. GASTROINTESTINAL: Abdomen is soft, nontender, nondistended. Bowel sounds are positive. SKIN: No acute rash. NEUROLOGIC: Limited at the present time. IMPRESSION: 1. Recurrent congestive heart failure. 2. Dilated cardiomyopathy. 3. Coronary artery disease. 4. Respiratory failure. 5. Transudative right pleural effusion. Status post thoracentesis. 6. Obstructive sleep apnea. 7. Worsening renal dysfunction. PLAN: The patient appears very comfortable this morning. He is not short of breath at rest. He states he is feeling much, much better overall. On physical exam, his bronchospasm is resolving. In addition, the alveolar arterial gradient is also resolving. I will continue with the current nebulizer treatments for now. The patient also remains on BiPAP at night. He will be transitioned to a Trilogy ventilator at home. I would continue with the diuresis as per cardiology and renal. Inputs are noted. The clinical status of the patient is significantly improved - compared to the initial presentation. However, again, the overall status/prognosis of this patient does remain very guarded. I will discuss the above with the attending physician. Kem Tom MD cc: [id number] TT: 01/29/2017 07:42:35 Confirmation # [id number] Dictation # [id number] ammy [place]
[2017-01-29 08:13] LABS: ADD MANUAL DIFF? NO
[2017-01-29 08:31] LABS: BASO # 0.02 K/mm3 (0.0-2.0); BASO % 0.4 % (0.0-3.0); EOS % 0.9 % (1.5-5.0); GRAN % 70.9 % (50.0-68.0); HEMATOCRIT 31.1 % (42.0-52.0); LYMPH # 0.9 (1.2-3.4); LYMPH % 19.8 % (22.0-35.0); MEAN CELL VOLUME 88.6 fL (80.0-105.0); MEAN CORPUSCULAR HEMOGLOBIN 27.9 pg (25.0-35.0); MEAN CORPUSCULAR HGB CONC 31.5 g/dl (31.0-37.0); MEAN PLATELET VOLUME 10.1 fl (7.0-11.0); MONO # 0.4 (0.1-0.6); PLATELET COUNT 211 10^3/uL (120.0-450.0); RED CELL DISTRIBUTION WIDTH 15.3 % (11.5-14.5); WHITE BLOOD COUNT 4.7 10^3/ul (4.5-11.0)
--- NOTE | 2017-01-29 08:31 | PN ---
DATE: 01/28/2017 A 46 year-old male admitted with CHF exacerbation. The patient reporting no shortness of breath today at rest, but some shortness of breath on ambulation, currently awaiting subacute rehab placement. VITAL SIGNS: This morning, blood pressure 151/83, heart rate 70, respirations 18, temperature 97.9, O2 sat 96% on 3 liters via nasal cannula. GENERAL: No distress, able to speak coherently in full sentences. HEENT: Large neck circumference. CHEST: Decreased breath sounds over right lung hop[place]. Otherwise, clear to auscultation bilaterally. HEART: S1, S2 positive, no murmurs, no gallops, no rubs. ABDOMEN: Soft, nontender, nondistended. EXTREMITIES: Mild leg edema. LABORATORY DATA: This morning, CBC: WBC 5.1, hemoglobin 9.5, hematocrit 30.1, platelets 207. Chemistry panel: Sodium 137, potassium 4.9, chloride 96, bicarb 34, BUN 67, creatinine 3.9, glucose 95, calcium 8.5, albumin 2.9. ASSESSMENT: 1. Congestive heart failure exacerbation with systolic dysfunction. Overall, improved symptomatically. Currently, on Bumex 3 mg p.o. b.i.d., switched to p.o. diuretics in anticipation of discharge. Has been losing small amounts of weight on this regimen, although weight since yesterday is unchanged. Overall, has lost 25 pounds since admission. We will continue with the same regimen for now. 2. Right pleural effusion, status post thoracentesis last week with 2.1 liters drained from right lung, still with decreased breath sounds over right lung field as compared to left. Would repeat chest x-ray to assess her pleural effusion recurrence. 3. Chronic kidney disease, stage IV/V. Renal function relatively stable even with aggressive diuresis. Relatively stable electrolyte status. The patient counseled on the need for AV fistula/AV graft replacement as soon as possible. Vascular surgery opting to pursue the matter as an outpatient. The patient that after being discharged to rehab he should follow up with vascular surgery while he is still at rehab. The patient is expected to continue to lose residual renal function and will need to initiate dialysis within the coming months. 4. Hypertension. Blood pressure overall improved. Continue current regimen. 5. Anemia secondary to iron deficiency as well as CKD on IV iron, continue. 6. Hypercapnic respiratory failure, overall improved significantly. Needs to continue with CPAP at home. EKG ordered to better assess acid-base status. 7. Chronic kidney disease mineral bone disease. PTH elevated. Will check vitamin D25 hydroxy stores and replenish as needed. Chester Perez MD cc: [id number] TT: 01/28/2017 20:53:34 Confirmation # [id number] Dictation # [id number] mn VINNIE
[2017-01-29 08:34] LABS: BILIRUBIN,TOTAL 0.4 mg/dL (0.2-1.3); CALCIUM 8.7 mg/dL (8.4-10.5); MAGNESIUM 2.4 mg/dL (1.7-2.2); PHOSPHOROUS 4.7 mg/dL (2.5-4.5); POTASSIUM 5.2 mmol/L (3.6-5.0); TOTAL PROTEIN 6.1 g/dL (5.8-8.3)
[2017-01-29] MEDS: Magnesium Oxide 400 mg Tab UD PO SCH (10:21)
[2017-01-29] MEDS: Pantoprazole 40 mg EC Tab PO SCH (10:21)
[2017-01-29] MEDS: POLYETHYLENE GLYCOL 3350 17 GM/Dose PACKET PO SCH ×3 (10:22→18:05)
--- NOTE | 2017-01-29 10:58 | CP.PCM.PN ---
<Remington Randolph - Last Filed: 01/29/17 12:56> Subjective - Date & Time of Evaluation Date of Evaluation: 01/29/17 Time of Evaluation: 10:53 - Subjective Subjective: PGY1 Medicine - Dr. Garcia/Dr. Lang service progress note Patient seen and examined at bedside this morning. Resting comfortably on 1 pillow. Currently on 3L NC. Reports no acute overnight events or new complaints. Denies chest pain, palpitations, SOB. Discussed with patient that he will likely be discharged home tomorrow as he was denied subacute rehab by his insurance company. Discussed with case management rn and he will hopefully be discharged home with services. He requires home oxygen as he desaturates when ambulating into the mid 80's without O2. Patient is agreeable to home discharge tomorrow. Objective - Vital Signs/Intake and Output Vital Signs (last 24 hours): Temp Pulse Resp BP Pulse Ox 97.7 F 64 18 163/76 H 96 01/29/17 07:30 01/29/17 07:30 01/29/17 07:30 01/29/17 07:30 01/29/17 07:30 Intake and Output: 01/29/17 01/29/17 06:59 18:59 Intake Total 840 Output Total 1450 Balance -610 - Medications Medications: Current Medications Albuterol/Ipratropium (Duoneb 3 Mg/0.5 Mg (3 Ml) Ud) 3 ml IH TIDRESP [facility] Last Admin: 01/29/17 07:18 Dose: 3 ml Amlodipine Besylate (Norvasc) 10 mg PO DAILY [facility] Last Admin: 01/29/17 10:20 Dose: 10 mg Aripiprazole (Abilify) 5 mg PO DAILY [facility] Last Admin: 01/29/17 10:20 Dose: 5 mg Aspirin (Ecotrin) 81 mg PO DAILY [facility] Last Admin: 01/29/17 10:20 Dose: 81 mg Bumetanide (Bumex) 3 mg PO BID [facility] Last Admin: 01/29/17 10:20 Dose: 3 mg Calcitriol (Rocaltrol) 0.25 mcg PO MWF [facility] Last Admin: 01/28/17 10:13 Dose: 0.25 mcg Carvedilol (Coreg) 25 mg PO BID [facility] Last Admin: 01/29/17 10:21 Dose: 25 mg Ferrous Sulfate (Feosol) 324 mg PO QAM [facility] Last Admin: 01/29/17 10:21 Dose: 324 mg Heparin Sodium (Porcine) (Heparin) 5,000 units SC Q12 [facility] PRN Reason: Protocol Last Admin: 01/29/17 10:20 Dose: 5,000 units Hydralazine HCl (Apresoline) 50 mg PO TID [facility] Last Admin: 01/29/17 10:20 Dose: 50 mg Iron Sucrose 100 mg/ Sodium (Chloride) 105 mls @ 210 mls/hr IVPB DAILY [facility] Last Admin: 01/29/17 10:22 Dose: 210 mls/hr Insulin Human Regular (Humulin R Low) 0 units SC ACHS [facility] PRN Reason: Protocol Last Admin: 01/28/17 23:09 Dose: Not Given Losartan [facility] ([facility]ar) [facility] [place] [facility] Last Admin: 01/29/17 10:21 Dose: 25 mg Magnesium Oxide (Mag-Ox) 400 mg PO [facility] Last Admin: 01/29/17 10:21 Dose: 400 mg Pantoprazole Sodium (Protonix Ec Tab) [facility] [place] Last Admin: 01/29/17 10:21 Dose: 40 mg Polyethylene Glycol (Miralax) 17 gm PO BID [facility] Last Admin: 01/29/17 10:22 Dose: 17 gm - Labs Labs: 01/29/17 07:45 01/29/17 07:45 PT 11.7 Seconds (9.9-11.8) 01/16/17 13:00 INR 1.08 (0.93-1.08) 01/16/17 13:00 APTT 25.3 Seconds (23.7-30.8) 01/16/17 13:00 - Constitutional Appears: Non-toxic, No Acute Distress - Head Exam Head Exam: ATRAUMATIC, NORMAL INSPECTION, NORMOCEPHALIC - Eye Exam Eye Exam: EOMI, PERRL - ENT Exam ENT Exam: Mucous Membranes Moist - Respiratory Exam Respiratory Exam: Clear to Ausculation Bilateral. absent: Rales, Rhonchi, Wheezes - Cardiovascular Exam Cardiovascular Exam: RRR, +S1, +S2. absent: Tachycardia, Diastolic murmur, Gallop, Rubs, Murmur - GI/Abdominal Exam GI & Abdominal Exam: Distended, Soft. absent: Firm, Guarding, Tenderness, Rebound - Extremities Exam Extremities Exam: Normal Inspection Additional comments: trace pitting edema - Neurological Exam Neurological Exam: Alert, Awake, Oriented x3 - Psychiatric Exam Psychiatric exam: Normal Affect, Normal Mood - Skin Skin Exam: Dry, Intact, Normal Color, Warm Assessment and Plan - Assessment and Plan (Free Text) Assessment: 46 yo male with history of DM type 2, hypertension, CKD stage 4/5, CAD and KARON admitted for acute hypoxemic respiratory failure secondary to decompensated congestive heart failure. Plan: 1. Decompensated congestive heart failure -BiPAP at night; 3L NC when not on BiPAP sating > 92% -Patient requires home oxygen upon discharge as he desaturates into the mid-80' s when not on 3LNC -CXR from 01/23/17 reviewed; improvement of vascular congestion -Patient s/p thoracentesis which was consistent with a transudative pleural effusion -Continue bumex -Cardiology following - Dr. Minor -Pulmonology following - Dr. Tom 2. CKD Stage 4/5 -lasix IV and milirnone were stopped, currently on bumex PO -Per nephrology will hold off on HD and continue diuresis, however patient will require HD in the coming months -cont home med calcitriol -AV fistula as an outpatient per surgery recommendations -Nephrology following 3. Anemia -Multifactorial secondary to CKD as well as iron deficiency -Patient near baseline, s/p 1u pRBC transfusion -continue home med feosol -Patient was given 1 dose of darbepoetin per hematology -Hematology following - Dr. Salazar 4. hyperkalemia -Mild elevation, will continue to trend 5. HTN - cont home meds coreg, hydralazine, losartan - coreg and hydralazine were increased 6. DM - ISSS- low - finger sticks ACHS 7. Prophylaxis -GI ppx protonix -DVT ppx heparin Disposition: -PT evaluated and recommended home with services or subacute rehab -Patient was denied subacute rehab by his insurance company; will likely be discharged home tomorrow with services -He will require home o2 upon discharge and will start trilogy ventilation at home as per pulmonology recommendations Patient seen and case discussed with attending, Dr. Lang <Adrian Lang - Last Filed: 02/22/17 09:33> Objective - Vital Signs/Intake and Output Vital Signs (last 24 hours): Temp Pulse Resp BP Pulse Ox 98.0 F 59 L 18 140/70 97 01/30/17 08:00 01/30/17 08:00 01/30/17 08:00 01/30/17 09:31 01/30/17 08:00 - Labs Labs: 01/30/17 11:20 01/30/17 11:20 PT 11.7 Seconds (9.9-11.8) 01/16/17 13:00 INR 1.08 (0.93-1.08) 01/16/17 13:00 APTT 25.3 Seconds (23.7-30.8) 01/16/17 13:00 Attending/Attestation - Attestation I have personally seen and examined this patient.: Yes I have fully participated in the care of the patient.: Yes I have reviewed all pertinent clinical information, including history, physical exam and plan: Yes Notes (Text): 02/22/17 09:33 Medical record note made by the resident after discussion with my direction and input after the patient was personally seen and examined by me. I have reviewed the chart and agree that the record accurately reflects by personal performance of the history, physical exam, data review, and medical decision-making, in the course for the patient. I have also personally directed the plan of care.
--- NOTE | 2017-01-29 13:21 | PN ---
DATE: 01/29/2017 REASON FOR CONSULTATION AND FOLLOWUP: Shortness of breath, coronary artery disease, congestive heart failure, morbid obesity, pulmonary hypertension, renal insufficiency. BRIEF CLINICAL HISTORY: A 46-year-old male with a past medical history significant for morbid obesit y, pulmonary hypertension, chronic obstructive pulmonary disease, chronic kidney disease, congestive heart failure, 2 vessel disease. Now lying flat. Denies any chest pain, shortness of breath, any pa lpitation. PHYSICAL EXAMINATION: As follows: VITAL SIGNS: Temperature afebrile, heart rate 64, blood pressure 151/78. HEENT: PERRLA. Extraocular muscles intact. NECK: Supple. No carotid bruits. No thyromegaly. CHEST: Clear to auscultation. HEART: S1, S2 regular. ABDOMEN: Soft. EXTREMITIES: Clubbing and cyanosis negative. BLOOD WORKUP: As follows: WBC ____, hemoglobin ____, hematocrit 31.1, platelet count 211. Chemistr y shows sodium 130, potassium ____, chloride 95, carbon dioxide 33, anion gap of 13, BUN ____. IMPRESSION: Chronic kidney disease, morbid obesity, diabetes, hypertension, hyperlipidemia, coronary artery disease 2 vessels, moderate to severe disease. RECOMMENDATION: Continue aggressive medical treatment. Asymptomatic. Once the patient starts dialy sis, consider percutaneous transluminal coronary angioplasty of left anterior descending and ramus. For now, aggressive medical treatment. Discussed in length with the mother and the patient himself. Interim, continue Coreg. Continue Cozaar, aspirin and DVT prophylaxis. We will follow with you. Thank you, Dr. Garcia for providing us the opportunity in taking care of the patient. We will foll ow with you. Lisa Minor MD cc: [id number] TT: 01/29/2017 13:19:52 Confirmation # [id number] Dictation # [id number]
[2017-01-29 17:11] VITALS: O2SAT 97
--- NOTE | 2017-01-29 23:11 | CP.PCM.PN ---
Subjective - Date & Time of Evaluation Date of Evaluation: 01/29/17 Time of Evaluation: 12:15 - Subjective Subjective: Reports breathing improved; Objective - Vital Signs/Intake and Output Vital Signs (last 24 hours): Temp Pulse Resp BP Pulse Ox 97.6 F 57 L 18 123/68 97 01/29/17 16:00 01/29/17 20:12 01/29/17 16:00 01/29/17 16:00 01/29/17 16:00 Intake and Output: 01/29/17 01/30/17 18:59 06:59 Intake Total 600 600 Output Total 950 500 Balance -350 100 - Medications Medications: Current Medications Albuterol/Ipratropium (Duoneb 3 Mg/0.5 Mg (3 Ml) Ud) 3 ml IH TIDRESP [facility] Last Admin: 01/29/17 20:09 Dose: 3 ml Amlodipine Besylate (Norvasc) 10 mg PO DAILY [facility] Last Admin: 01/29/17 10:20 Dose: 10 mg Aripiprazole (Abilify) 5 mg PO DAILY [facility] Last Admin: 01/29/17 10:20 Dose: 5 mg Aspirin (Ecotrin) 81 mg PO DAILY [facility] Last Admin: 01/29/17 10:20 Dose: 81 mg Bumetanide (Bumex) 3 mg PO BID [facility] Last Admin: 01/29/17 18:03 Dose: 3 mg Calcitriol (Rocaltrol) 0.25 mcg PO MWF [facility] Last Admin: 01/28/17 10:13 Dose: 0.25 mcg Carvedilol (Coreg) 25 mg PO BID [facility] Last Admin: 01/29/17 10:21 Dose: 25 mg Ferrous Sulfate (Feosol) 324 mg PO QAM [facility] Last Admin: 01/29/17 10:21 Dose: 324 mg Heparin Sodium (Porcine) (Heparin) 5,000 units SC Q12 [facility] PRN Reason: Protocol Last Admin: 01/29/17 22:34 Dose: 5,000 units Hydralazine HCl (Apresoline) 50 mg PO TID [facility] Last Admin: 01/29/17 18:04 Dose: 50 mg Iron Sucrose 100 mg/ Sodium (Chloride) 105 mls @ 210 mls/hr IVPB DAILY [facility] Last Admin: 01/29/17 10:22 Dose: 210 mls/hr Insulin Human Regular (Humulin R Low) 0 units SC ACHS [facility] PRN Reason: Protocol Last Admin: 01/29/17 22:21 Dose: Not Given Losartan Potassium (Cozaar) [facility] Last Admin: 01/29/17 10:21 Dose: 25 mg Magnesium Oxide (Mag-Ox) 400 mg PO QAM [facility] Last Admin: 01/29/17 10:21 Dose: 400 mg Pantoprazole Sodium (Protonix Ec Tab) 40 mg PO QAM [facility] Last Admin: 01/29/17 10:21 Dose: 40 mg Polyethylene Glycol (Miralax) 17 gm PO BID [facility] Last Admin: 01/29/17 18:05 Dose: 17 gm - Labs Labs: 01/29/17 07:45 01/29/17 07:45 PT 11.7 Seconds (9.9-11.8) 01/16/17 13:00 INR 1.08 (0.93-1.08) 01/16/17 13:00 APTT 25.3 Seconds (23.7-30.8) 01/16/17 13:00 - Constitutional Appears: No Acute Distress Assessment and Plan (1) Chronic kidney disease (CKD), stage V Status: Chronic (2) CHF exacerbation Status: Acute (3) Hypercapnic respiratory failure Status: Acute (4) HTN (hypertension) Status: Chronic
[2017-01-30] MEDS: Albuterol-Ipratrop 3 mg / 0.5 (3 ml) UD IH SCH ×2 (07:13→13:17)
--- NOTE | 2017-01-30 08:41 | PN ---
DATE: 01/30/2017 SUBJECTIVE: The patient appears very comfortable at rest. He is not short of breath. VITALS: Temperature is 97.6, pulse 57, respirations 18, last blood pressure recorded 123/68. Oxygen saturation on nasal cannula is 97%. HENT: Normocephalic, atraumatic. Positive JVD. CARDIOVASCULAR: Positive S1, S2. Positive S3 gallop. LUNGS: Minimal/less crackles at the bases. Otherwise, clear. EXTREMITIES: Less edema. No cyanosis, no clubbing. Calves are nontender to palpation. GASTROINTESTINAL: Abdomen is soft, nontender, nondistended. Bowel sounds are positive. SKIN: No acute rash. NEUROLOGIC EXAMINATION: Limited at the present time. IMPRESSION: 1. Recurrent congestive heart failure. 2. Dilated cardiomyopathy. 3. Coronary artery disease. 4. Respiratory failure. 5. Transudative right pleural effusion. Status post thoracentesis. 6. Obstructive sleep apnea. 7. Worsening renal dysfunction. PLAN: The patient appears very comfortable this morning. He is not short of breath at rest. He states he is feeling much, much better overall. On physical exam, his bronchospasm has resolved. In addition, the alveolar arterial gradient has also resolved. Last oxygen saturation measured on nasal cannula -- 97%. I will continue with the current nebulizer treatments for now. I would continue with the diuresis as per renal and cardiology. Inputs are noted. Clinical status of the patient is significantly improved -- compared to the initial presentation. However, again, the overall status/prognosis of this patient does remain guarded. I will discuss the above with Dr. Garcia. Kem Tom MD cc: [id number] TT: 01/30/2017 08:41:09 Confirmation # [id number] Dictation # [id number] jesse [place]
[2017-01-30 09:11] VITALS: BP 140/70; PULSE 59; TEMP 98
[2017-01-30] MEDS: Magnesium Oxide 400 mg Tab UD PO SCH (09:30)
[2017-01-30] MEDS: Pantoprazole 40 mg EC Tab PO SCH (09:31)
[2017-01-30] MEDS: Insulin Reg-LOW-Coverage SC SCH ×2 (09:32→12:04)
[2017-01-30] MEDS: POLYETHYLENE GLYCOL 3350 17 GM/Dose PACKET PO SCH (09:37)
--- NOTE | 2017-01-30 10:26 | CP.PCM.DIS ---
<Remington Randolph - Last Filed: 01/31/17 10:49> Provider - Provider Date of Admission: 01/16/17 17:22 Attending physician: Nicholas Garcia MD Consults: Cardiology - Dr. Minor Pulmonology - Dr. Tom Nephrology - Dr. Perez Time Spent in preparation of Discharge (in minutes): 30 Hospital Course - Lab Results Lab Results: Micro Results 01/22/17 16:00 Other: Please Indicate Mycobacterial Culture - Preliminary 01/22/17 16:00 Pleural Fluid Gram Stain - Final 01/22/17 16:00 Pleural Fluid Body Fluid Culture - Final No growth. 01/22/17 16:00 Pleural Fluid Anaerobic Culture - Final NO ANAEROBES ISOLATED. 01/22/17 16:00 Pleural Fluid Fungal Culture - Preliminary Most Recent Lab Values WBC 4.7 10^3/ul (4.5-11.0) 01/29/17 07:45 RBC 3.51 10^6/uL (3.5-6.1) 01/29/17 07:45 Hgb 9.8 gm/dL (14.0-18.0) L 01/29/17 07:45 Hct 31.1 % (42.0-52.0) L 01/29/17 07:45 MCV 88.6 fL (80.0-105.0) 01/29/17 07:45 MCH 27.9 pg (25.0-35.0) 01/29/17 07:45 MCHC 31.5 g/dl (31.0-37.0) 01/29/17 07:45 RDW 15.3 % (11.5-14.5) H 01/29/17 07:45 Plt Count 211 10^3/uL (120.0-450.0) 01/29/17 07:45 MPV 10.1 fl (7.0-11.0) 01/29/17 07:45 Gran % 70.9 % (50.0-68.0) H 01/29/17 07:45 Lymph % (Auto) 19.8 % (22.0-35.0) L 01/29/17 07:45 [place] % (Auto) 8.0 % (1.0-6.0) H 01/29/17 07:45 Eos % (Auto) 0.9 % (1.5-5.0) L 01/29/17 07:45 Baso % (Auto) 0.4 % (0.0-3.0) 01/29/17 07:45 Gran # 3.30 (1.4-6.5) 01/29/17 07:45 Lymph # 0.9 (1.2-3.4) L 01/29/17 07:45 [place] # 0.4 (0.1-0.6) 01/29/17 07:45 Eos # 0.0 (0.0-0.7) 01/29/17 07:45 Baso # 0.02 K/mm3 (0.0-2.0) 01/29/17 07:45 PT 11.7 Seconds (9.9-11.8) 01/16/17 13:00 INR 1.08 (0.93-1.08) 01/16/17 13:00 APTT 25.3 Seconds (23.7-30.8) 01/16/17 13:00 pCO2 53 mm/Hg (35-45) H 01/21/17 09:55 pO2 86.0 mm/Hg (80-100) 01/21/17 09:55 HCO3 30.6 mmol/L (21-28) H 01/21/17 09:55 ABG pH 7.37 (7.35-7.45) 01/21/17 09:55 ABG Total CO2 32.2 mmol.L (22-28) H 01/21/17 09:55 ABG O2 Saturation 98.3 % (95-98) H 01/21/17 09:55 ABG O2 Content 10.7 ML/dl (15-23) L 01/21/17 09:55 ABG Base Excess 4.7 mmol/L (-2.0-3.0) H 01/21/17 09:55 ABG Hemoglobin 7.8 g/dL (11.7-17.4) L 01/21/17 09:55 ABG Carboxyhemoglobin 1.9 % (0.5-1.5) H 01/21/17 09:55 POC ABG HHb (Measured) 1.7 % (0-5) 01/21/17 09:55 ABG Methemoglobin 0.5 % (0.0-3.0) 01/21/17 09:55 ABG O2 Capacity 10.9 mL/dl (16-24) L 01/21/17 09:55 ABG Potassium 5.1 mmol/L (3.6-5.2) 01/16/17 13:00 Hgb O2 Saturation 95.9 % (95.0-98.0) 01/21/17 09:55 Sodium 139.0 mmol/L (132-148) 01/16/17 13:00 Chloride 107.0 mmol/L (98-107) 01/16/17 13:00 Glucose 149 mg/dl (75-110) H 01/16/17 13:00 Lactate 1.2 mmol/L (0.7-2.1) 01/16/17 13:00 FiO2 30.0 % 01/21/17 09:55 Sodium 136 mmol/L (132-148) 01/29/17 07:45 Potassium 5.2 mmol/L (3.6-5.0) H 01/29/17 07:45 Chloride 95 mmol/L (95-110) 01/29/17 07:45 Carbon Dioxide 33 mmol/L (21-33) 01/29/17 07:45 Anion Gap 13 (10-20) 01/29/17 07:45 BUN 66 mg/dL (7-21) H 01/29/17 07:45 Creatinine 4.1 mg/dL (0.5-1.4) H 01/29/17 07:45 Est GFR ( Amer) 19 01/29/17 07:45 Est GFR (Non-Af Amer) 16 01/29/17 07:45 POC Glucose (mg/dL) 86 mg/dL (65-110) 01/30/17 07:30 Random Glucose 93 mg/dL (70-110) 01/29/17 07:45 Uric Acid 6.5 mg/dL (3.5-8.5) 01/19/17 06:45 Calcium 8.7 mg/dL (8.4-10.5) 01/29/17 07:45 Phosphorus 4.7 mg/dL (2.5-4.5) H 01/29/17 07:45 Magnesium 2.4 mg/dL (1.7-2.2) H 01/29/17 07:45 Iron 26 ug/dL (45-180) L 01/20/17 07:00 TIBC 239 ug/dL (261-462) L 01/20/17 07:00 % Saturation 11 % (20-55) L 01/20/17 07:00 Ferritin 85.9 ng/mL 01/20/17 07:00 Total Bilirubin 0.4 mg/dL (0.2-1.3) 01/29/17 07:45 AST 68 U/L (15-59) H 01/29/17 07:45 ALT 60 U/L (7-56) H 01/29/17 07:45 Alkaline Phosphatase 87 U/L (38-133) 01/29/17 07:45 Lactate Dehydrogenase 470 U/L (333-699) 01/23/17 08:00 Troponin I 0.02 ng/mL D 01/16/17 13:00 NT-Pro-B Natriuret Pep 48540 pg/mL (0-450) H 01/16/17 13:00 Total Protein 6.1 g/dL (5.8-8.3) 01/29/17 07:45 Albumin 3.0 g/dL (3.0-4.8) 01/29/17 07:45 Globulin 3.1 gm/dL 01/29/17 07:45 Albumin/Globulin Ratio 1.0 (1.1-1.8) L 01/29/17 07:45 Triglycerides 171 mg/dL (35-160) H 01/18/17 05:30 Cholesterol 122 mg/dL (130-200) L 01/18/17 05:30 LDL Cholesterol Direct 50 mg/dL (0-129) 01/18/17 05:30 HDL Cholesterol 30 mg/dL (29-60) 01/18/17 05:30 25-OH Vitamin D Total < 12.8 NG/ML (30.0-100.0) L 01/29/17 07:45 TSH 3rd Generation 4.96 mIU/mL (0.46-4.68) H 01/18/17 05:30 Calcium (PTH Intact) 8.1 mg/dL (8.6-10.3) L 01/20/17 07:00 PTH w/Ion &Tot Calcium 211 pg/mL (14-64) H 01/20/17 07:00 Arterial Blood Potassium 5.1 mmol/L (3.6-5.2) 01/16/17 13:00 Urine Color Yellow (YELLOW) 01/16/17 13:20 Urine Appearance Sl cloudy (CLEAR) 01/16/17 13:20 Urine pH 6.5 (4.7-8.0) 01/16/17 13:20 Ur Specific [place] 1.020 (1.005-1.035) 01/16/17 13:20 Urine Protein >=300 mg/dL (<30 mg/dL) H 01/16/17 13:20 Urine Glucose (UA) 250 mg/dL (NEGATIVE) H 01/16/17 13:20 Urine Ketones Negative mg/dL (NEGATIVE) 01/16/17 13:20 Urine Blood Small (NEGATIVE) H 01/16/17 13:20 Urine Nitrate Negative (NEGATIVE) 01/16/17 13:20 Urine Bilirubin Negative (NEGATIVE) 01/16/17 13:20 Urine Urobilinogen 0.2 E.U./dL (<1 E.U./dL) 01/16/17 13:20 Ur Leukocyte Esterase Negative Lala/uL (NEGATIVE) 01/16/17 13:20 Urine RBC 1 - 3 /hpf (0-2) 01/16/17 13:20 Urine WBC 1 - 3 /hpf (0-6) 01/16/17 13:20 Ur Epithelial Cells 3 - 4 /hpf (0-5) 01/16/17 13:20 Urine Bacteria Trace (NEG) 01/16/17 13:20 Fluid Source Pleural 01/22/17 16:00 Fluid Appearance Clear (CLEAR) 01/22/17 16:00 Fluid WBC 166.0 /uL (0.0-300.0) 01/22/17 16:00 Fluid RBC 1425.0 /uL (0.0-0.0) H 01/22/17 16:00 Fluid Tot Cell Count 100 (0-0) H 01/22/17 16:00 Fluid Neutrophils 4.2 % (0-0) H 01/22/17 16:00 Fluid Lymphocytes 95.8 % (0-0) H 01/22/17 16:00 Fld Monocyte/Macrophag TEST NOT PERFORMED 01/22/17 16:00 Fluid Comment Yellow 01/22/17 16:00 Pleural pH 7.0 01/22/17 16:00 Pleural Total Protein <3.0 g/dL (()) 01/22/17 16:00 Pleural LDH 60 U/L (()) 01/22/17 16:00 Blood Type A POSITIVE 01/21/17 14:00 Antibody Screen Negative 01/21/17 14:00 Crossmatch See Detail 01/21/17 14:00 BBK History Checked Patient has bt 01/21/17 14:00 - Hospital Course Hospital Course: Patient is a 46yo male with past medical history of DM2, HTN, CKD stage 5, CAD and KARON that presented c/o shortness of breath that has been ongoing for the past year but had acutely exacerbated for several days prior to presentation. He had reported that he felt weak and was unable to complete his activities of daily living. He reported worsening of his shortness of breath on exertion as well as a dry cough. At the time of his admission he denied fever, chills, chest pain, abdominal pain, nausea, vomiting, focal weakness, numbness, tingling. The following workup/results were obtained during the course of this patient's hospital admission: 1. Decompensated congestive heart failure -BiPAP at night; 3L NC when not on BiPAP sating > 92% -Patient requires home oxygen upon discharge as he desaturates into the mid-80' s when not on 3LNC -CXR from 01/23/17 reviewed; improvement of vascular congestion seen originally on admission -Patient s/p thoracentesis which was consistent with a transudative pleural effusion -Treated with bumex 3mg PO BID -Cardiology following - Dr. Minor -Pulmonology following - Dr. Tom 2. CKD Stage 5 -lasix IV and milirnone were stopped, currently on bumex PO -Per nephrology will hold off on HD and continue diuresis, however patient will require HD in the coming months -cont home med calcitriol -AV fistula as an outpatient per surgery recommendations -Nephrology following 3. Anemia -Multifactorial secondary to CKD as well as iron deficiency -Patient near baseline, s/p 1u pRBC transfusion -continue home med feosol -Patient was given 1 dose of darbepoetin per hematology -Hematology following - Dr. Salazar 4. hyperkalemia -Mild elevation, will continue to trend 5. HTN - cont home meds coreg, hydralazine, losartan - coreg and hydralazine were increased 6. DM - ISSS- low - finger sticks ACHS 7. Prophylaxis -GI ppx protonix -DVT ppx heparin During this patient's hospital course, his breathing substantially improved and he reported improvement of his symptoms. He was instructed to follow up with his regulatory services consultant as he was told that he will require dialysis in the coming months. Additionally, he was instructed to follow up with surgery for AV fistula placement and cardiology. He was instructed to follow up with these physicians within 1-2 weeks of discharge. He was also instructed to use his CPAP at night for his obstructive sleep apnea and to use oxygen during his daily routine. He was setup for services at home per social work/case manager. He was instructed to return to the hospital should his condition worsen or change in severity/quality. Discharge Exam - Head Exam Head Exam: ATRAUMATIC, NORMAL INSPECTION, NORMOCEPHALIC - Eye Exam Eye Exam: EOMI, PERRL. absent: Scleral icterus - Respiratory Exam Respiratory Exam: Decreased Breath Sounds. absent: Rales, Rhonchi, Wheezes - Cardiovascular Exam Cardiovascular Exam: RRR, +S1, +S2. absent: Tachycardia, Diastolic murmur, Gallop, Rubs, Systolic Murmur - GI/Abdominal Exam GI & Abdominal Exam: Normal Bowel Sounds, Soft. absent: Distended, Firm, Guarding, Rebound - Neurological Exam Neurological exam: Alert, CN II-XII Intact, Oriented x3 - Psychiatric Exam Psychiatric exam: Normal Affect, Normal Mood - Skin Skin Exam: Dry, Intact, Normal Color, Warm Discharge Plan - Discharge Medications Prescriptions: Bumetanide [Bumex] 3 mg PO BID #60 tab Carvedilol [Coreg] 25 mg PO BID #60 tab amLODIPine [Norvasc] 10 mg PO DAILY #30 tab - Follow Up Plan Condition: FAIR Disposition: HOME/ ROUTINE Instructions: Heart Failure (DC), Pulmonary Edema (DC), Renal Failure Diet (DC) , Heart Healthy Diet (DC), Diabetes Mellitus Type 1 in Adults (DC), Using Oxygen at Home (DC), Cholesterol and Your Health (GEN), Chronic Hypertension (DC ), Fall Prevention (DC), Edema (DC), Pulse Oximetry (DC) Additional Instructions: Discharge instructions: - Follow up with Dr. Garcia in 1 week - Follow up with cardiology, Dr. Minor, in 2-3 weeks - follow up with pulmonary, Dr. Tom in 2-3 weeks - Follow up with nephrology, Dr. Perez, in 2-3 weeks - Follow up with surgery, Dr. Nye in 2-3 weeks - Fill the medications prescribed to you and take as directed - Return to the emergency room should your condition worsen or change in severity/quality Discharge diagnoses: - Hypercapnic respiratory failure - CHF exacerbation - Respiratory acidosis - anasarca - HTN - Hyperkalemia Referrals: Lisa Minor MD [Staff Provider] - Kem Tom MD [Staff Provider] - Dave Rodriguez MD [Staff Provider] - Chester Perez MD [Staff Provider] - <Nicholas Garcia - Last Filed: 02/27/17 10:45> Provider - Provider Date of Admission: 01/16/17 17:22 Attending physician: Nicholas Garcia MD Hospital Course - Lab Results Lab Results: Micro Results 01/22/17 16:00 Pleural Fluid Anaerobic Culture - Final NO ANAEROBES ISOLATED. 01/22/17 16:00 Pleural Fluid Fungal Culture - Final NO FUNGUS GROWTH IN 4 WEEKS. 01/22/17 16:00 Other: Please Indicate Mycobacterial Culture - Preliminary 01/22/17 16:00 Pleural Fluid Gram Stain - Final 01/22/17 16:00 Pleural Fluid Body Fluid Culture - Final No growth. Most Recent Lab Values WBC 5.5 10^3/ul (4.5-11.0) 01/30/17 11:20 RBC 3.43 10^6/uL (3.5-6.1) L 01/30/17 11:20 Hgb 9.6 gm/dL (14.0-18.0) L 01/30/17 11:20 Hct 30.5 % (42.0-52.0) L 01/30/17 11:20 MCV 88.9 fL (80.0-105.0) 01/30/17 11:20 MCH 28.0 pg (25.0-35.0) 01/30/17 11:20 MCHC 31.5 g/dl (31.0-37.0) 01/30/17 11:20 RDW 15.2 % (11.5-14.5) H 01/30/17 11:20 Plt Count 194 10^3/uL (120.0-450.0) 01/30/17 11:20 MPV 9.5 fl (7.0-11.0) 01/30/17 11:20 Gran % 75.6 % (50.0-68.0) H 01/30/17 11:20 Lymph % (Auto) 15.6 % (22.0-35.0) L 01/30/17 11:20 [place] % (Auto) 8.2 % (1.0-6.0) H 01/30/17 11:20 Eos % (Auto) 0.4 % (1.5-5.0) L 01/30/17 11:20 Baso % (Auto) 0.2 % (0.0-3.0) 01/30/17 11:20 Gran # 4.13 (1.4-6.5) 01/30/17 11:20 Lymph # 0.9 (1.2-3.4) L 01/30/17 11:20 [place] # 0.5 (0.1-0.6) 01/30/17 11:20 Eos # 0.0 (0.0-0.7) 01/30/17 11:20 Baso # 0.01 K/mm3 (0.0-2.0) 01/30/17 11:20 PT 11.7 Seconds (9.9-11.8) 01/16/17 13:00 INR 1.08 (0.93-1.08) 01/16/17 13:00 APTT 25.3 Seconds (23.7-30.8) 01/16/17 13:00 pCO2 53 mm/Hg (35-45) H 01/21/17 09:55 pO2 86.0 mm/Hg (80-100) 01/21/17 09:55 HCO3 30.6 mmol/L (21-28) H 01/21/17 09:55 ABG pH 7.37 (7.35-7.45) 01/21/17 09:55 ABG Total CO2 32.2 mmol.L (22-28) H 01/21/17 09:55 ABG O2 Saturation 98.3 % (95-98) H 01/21/17 09:55 ABG O2 Content 10.7 ML/dl (15-23) L 01/21/17 09:55 ABG Base Excess 4.7 mmol/L (-2.0-3.0) H 01/21/17 09:55 ABG Hemoglobin 7.8 g/dL (11.7-17.4) L 01/21/17 09:55 ABG Carboxyhemoglobin 1.9 % (0.5-1.5) H 01/21/17 09:55 POC ABG HHb (Measured) 1.7 % (0-5) 01/21/17 09:55 ABG Methemoglobin 0.5 % (0.0-3.0) 01/21/17 09:55 ABG O2 Capacity 10.9 mL/dl (16-24) L 01/21/17 09:55 ABG Potassium 5.1 mmol/L (3.6-5.2) 01/16/17 13:00 Hgb O2 Saturation 95.9 % (95.0-98.0) 01/21/17 09:55 Sodium 139.0 mmol/L (132-148) 01/16/17 13:00 Chloride 107.0 mmol/L (98-107) 01/16/17 13:00 Glucose 149 mg/dl (75-110) H 01/16/17 13:00 Lactate 1.2 mmol/L (0.7-2.1) 01/16/17 13:00 FiO2 30.0 % 01/21/17 09:55 Sodium 134 mmol/L (132-148) 01/30/17 11:20 Potassium 5.5 mmol/L (3.6-5.0) H 01/30/17 11:20 Chloride 94 mmol/L (98-107) L 01/30/17 11:20 Carbon Dioxide 35 mmol/L (21-33) H 01/30/17 11:20 Anion Gap 11 (10-20) 01/30/17 11:20 BUN 67 mg/dL (7-21) H 01/30/17 11:20 Creatinine 4.0 mg/dL (0.5-1.4) H 01/30/17 11:20 Est GFR ( Amer) 01/30/17 11:20 Est GFR (Non-Af Amer) 16 01/30/17 11:20 POC Glucose (mg/dL) 134 mg/dL (65-110) H 01/30/17 11:30 Random Glucose 123 mg/dL (70-110) H 01/30/17 11:20 Uric Acid 6.5 mg/dL (3.5-8.5) 01/19/17 06:45 Calcium 8.6 mg/dL (8.4-10.5) 01/30/17 11:20 Phosphorus 4.9 mg/dL (2.5-4.5) H 01/30/17 11:20 Magnesium 2.5 mg/dL (1.7-2.2) H 01/30/17 11:20 Iron 26 ug/dL (45-180) L 01/20/17 07:00 TIBC 239 ug/dL (261-462) L 01/20/17 07:00 % Saturation 11 % (20-55) L 01/20/17 07:00 Ferritin 85.9 ng/mL 01/20/17 07:00 Total Bilirubin 0.5 mg/dL (0.2-1.3) 01/30/17 11:20 AST 64 U/L (15-59) H 01/30/17 11:20 ALT 72 U/L (7-56) H 01/30/17 11:20 Alkaline Phosphatase 86 U/L (38-133) 01/30/17 11:20 Lactate Dehydrogenase 470 U/L (333-699) 01/23/17 08:00 Troponin I 0.02 ng/mL D 01/16/17 13:00 NT-Pro-B Natriuret Pep 05936 pg/mL (0-450) H 01/16/17 13:00 Total Protein 6.2 g/dL (5.8-8.3) 01/30/17 11:20 Albumin 3.1 g/dL (3.0-4.8) 01/30/17 11:20 Globulin 3.1 gm/dL 01/30/17 11:20 Albumin/Globulin Ratio 1.0 (1.1-1.8) L 01/30/17 11:20 Triglycerides 171 mg/dL (35-160) H 01/18/17 05:30 Cholesterol 122 mg/dL (130-200) L 01/18/17 05:30 LDL Cholesterol Direct 50 mg/dL (0-129) 01/18/17 05:30 HDL Cholesterol 30 mg/dL (29-60) 01/18/17 05:30 25-OH Vitamin D Total < 12.8 NG/ML (30.0-100.0) L 01/29/17 07:45 TSH 3rd Generation 4.96 mIU/mL (0.46-4.68) H 01/18/17 05:30 Calcium (PTH Intact) 8.1 mg/dL (8.6-10.3) L 01/20/17 07:00 PTH w/Ion &Tot Calcium 211 pg/mL (14-64) H 01/20/17 07:00 Arterial Blood Potassium 5.1 mmol/L (3.6-5.2) 01/16/17 13:00 Urine Color Yellow (YELLOW) 01/16/17 13:20 Urine Appearance Sl cloudy (CLEAR) 01/16/17 13:20 Urine pH 6.5 (4.7-8.0) 01/16/17 13:20 Ur Specific [place] 1.020 (1.005-1.035) 01/16/17 13:20 Urine Protein >=300 mg/dL (<30 mg/dL) H 01/16/17 13:20 Urine Glucose (UA) 250 mg/dL (NEGATIVE) H 01/16/17 13:20 Urine Ketones Negative mg/dL (NEGATIVE) 01/16/17 13:20 Urine Blood Small (NEGATIVE) H 01/16/17 13:20 Urine Nitrate Negative (NEGATIVE) 01/16/17 13:20 Urine Bilirubin Negative (NEGATIVE) 01/16/17 13:20 Urine Urobilinogen 0.2 E.U./dL (<1 E.U./dL) 01/16/17 13:20 Ur Leukocyte Esterase Negative Lala/uL (NEGATIVE) 01/16/17 13:20 Urine RBC 1 - 3 /hpf (0-2) 01/16/17 13:20 Urine WBC 1 - 3 /hpf (0-6) 01/16/17 13:20 Ur Epithelial Cells 3 - 4 /hpf (0-5) 01/16/17 13:20 Urine Bacteria Trace (NEG) 01/16/17 13:20 Fluid Source Pleural 01/22/17 16:00 Fluid Appearance Clear (CLEAR) 01/22/17 16:00 Fluid WBC 166.0 /uL (0.0-300.0) 01/22/17 16:00 Fluid RBC 1425.0 /uL (0.0-0.0) H 01/22/17 16:00 Fluid Tot Cell Count 100 (0-0) H 01/22/17 16:00 Fluid Neutrophils 4.2 % (0-0) H 01/22/17 16:00 Fluid Lymphocytes 95.8 % (0-0) H 01/22/17 16:00 Fld Monocyte/Macrophag TEST NOT PERFORMED 01/22/17 16:00 Fluid Comment Yellow 01/22/17 16:00 Pleural pH 7.0 01/22/17 16:00 Pleural Total Protein <3.0 g/dL (()) 01/22/17 16:00 Pleural LDH 60 U/L (()) 01/22/17 16:00 Blood Type A POSITIVE 01/21/17 14:00 Antibody Screen Negative 01/21/17 14:00 Crossmatch See Detail 01/21/17 14:00 BBK History Checked Patient has bt 01/21/17 14:00 Attending/Attestation - Attestation I have personally seen and examined this patient.: Yes I have fully participated in the care of the patient.: Yes I have reviewed all pertinent clinical information, including history, physical exam and plan: Yes Notes (Text): 02/27/17 10:45 Medial record note done by resident after patient personally seen and examined by me. I have reviewed the chart and agree that the record accurately reflects my personal evaluation, data review, and course for the patient.
[2017-01-30 11:22] LABS: ADD MANUAL DIFF? NO
[2017-01-30 11:26] LABS: BASO # 0.01 K/mm3 (0.0-2.0); BASO % 0.2 % (0.0-3.0); EOS % 0.4 % (1.5-5.0); GRAN # 4.13 (1.4-6.5); GRAN % 75.6 % (50.0-68.0); HEMATOCRIT 30.5 % (42.0-52.0); LYMPH # 0.9 (1.2-3.4); LYMPH % 15.6 % (22.0-35.0); MEAN CELL VOLUME 88.9 fL (80.0-105.0); MEAN CORPUSCULAR HGB CONC 31.5 g/dl (31.0-37.0); MEAN PLATELET VOLUME 9.5 fl (7.0-11.0); MONO # 0.5 (0.1-0.6); MONO % 8.2 % (1.0-6.0); PLATELET COUNT 194 10^3/uL (120.0-450.0); RED CELL DISTRIBUTION WIDTH 15.2 % (11.5-14.5); WHITE BLOOD COUNT 5.5 10^3/ul (4.5-11.0)
[2017-01-30 11:34] LABS: BILIRUBIN,TOTAL 0.5 mg/dL (0.2-1.3); CALCIUM 8.6 mg/dL (8.4-10.5); MAGNESIUM 2.5 mg/dL (1.7-2.2); PHOSPHOROUS 4.9 mg/dL (2.5-4.5); POTASSIUM 5.5 mmol/L (3.6-5.0); TOTAL PROTEIN 6.2 g/dL (5.8-8.3)
[2017-01-30] MEDS ORDERED: Sod Polystyrene Sulf 15 gm/60 ml Oral Susp PO ONE (13:10)
--- NOTE | 2017-01-30 13:24 | PN ---
DATE: 01/30/2017 The patient in room 573, bed 3. REASON FOR CONSULTATION AND FOLLOWUP: Shortness of breath, coronary artery disease, congestive heart failure, morbid obesity, pulmonary hypertension, renal insufficiency. HISTORY OF PRESENT ILLNESS: The patient is a 46-year-old male with past medical history significant for morbid obesity, pulmonary hypertension, chronic obstructive pulmonary disease, chronic kidney dis ease, congestive heart failure, 2-vessel coronary artery disease, was admitted with shortness of darlene th and now shortness of breath has improved. The patient lying flat in bed without any cardiac sympt oms. PHYSICAL EXAMINATION: VITAL SIGNS: Blood pressure 140/70, respirations 18, pulse 59, temperature 98.0. HEAD: Normocephalic. EYES: Pupils normal. Conjunctivae slightly pale. NECK: JVP low. Carotid equal. THORAX: AP diameter normal. LUNGS: Clear. CARDIOVASCULAR: S1 and S2. ABDOMEN: Protuberant, no organomegaly. EXTREMITIES: No clubbing, no cyanosis. LABORATORIES: WBC 5.5, hemoglobin 9.6, hematocrit 30.5, platelets 194. Sodium 134, potassium 5.5, B UN 67, creatinine 4.0, random sugar 134, AST 64, ALT 72, total protein 6.2, albumin 3.1. DIAGNOSES: Chronic kidney disease, morbid obesity, diabetes, hypertension, hyperlipidemia, coronary artery disease, 2-vessel disease, moderate to severe disease, hyperkalemia. PLAN: The patient is asymptomatic from coronary artery disease that is why angioplasty, stent was no t done because of dye load and patient going into dialysis. Once patient on dialysis, then we will c onsider angioplasty, stent insertion of left anterior descending and ramus. In the meantime, we will continue aggressive medical therapy with Coreg, Cozaar, aspirin, deep venous thrombosis prophylaxis. We will give Kayexalate with sorbitol for hyperkalemia and repeat labs in the morning. Lisa Lei MD cc: [id number] TT: 01/30/2017 13:23:43 Confirmation # [id number] Dictation # [id number]
--- NOTE | 2017-01-30 23:34 | CP.PCM.PN ---
Objective - Vital Signs/Intake and Output Vital Signs (last 24 hours): Temp Pulse Resp BP Pulse Ox 98.0 F 59 L 18 140/70 97 01/30/17 08:00 01/30/17 08:00 01/30/17 08:00 01/30/17 09:31 01/30/17 08:00 - Labs Labs: 01/30/17 11:20 01/30/17 11:20 PT 11.7 Seconds (9.9-11.8) 01/16/17 13:00 INR 1.08 (0.93-1.08) 01/16/17 13:00 APTT 25.3 Seconds (23.7-30.8) 01/16/17 13:00 Assessment and Plan (1) CHF exacerbation Status: Acute (2) Chronic kidney disease (CKD), stage V Status: Chronic (3) HTN (hypertension) Status: Chronic (4) Hypercapnic respiratory failure Status: Acute
== END 2017-01-30 13:59 | disposition home or self-care (01) | DRG 291 ==
LOC: ED 12:10 → ERH 17:22 → 3RNO 20:04 → 2RNO 01-17 14:10 → 5RSO 01-22 16:37
PROVIDERS: ADMIT Family Medicine; ATTEND Internal Medicine
PROC: 5A09557 Assistance with Respiratory Ventilation, Greater than 96 Consecutive Hours, Continuous Positive Airway Pressure (ICD-10-PCS; 2017-01-16)
PROC: 3E0F7GC Introduction of Other Therapeutic Substance into Respiratory Tract, Via Natural or Artificial Opening (ICD-10-PCS; 2017-01-20)
PROC: 30233N1 Transfusion of Nonautologous Red Blood Cells into Peripheral Vein, Percutaneous Approach (ICD-10-PCS; 2017-01-21)
PROC: 0W993ZZ Drainage of Right Pleural Cavity, Percutaneous Approach (ICD-10-PCS; principal; 2017-01-22 15:00)
DX: I13.2 Hypertensive heart and chronic kidney disease with heart failure and with stage 5 chronic kidney disease, or end stage renal disease (principal); I50.23 Acute on chronic systolic (congestive) heart failure; J96.92 Respiratory failure, unspecified with hypercapnia; J90 Pleural effusion, not elsewhere classified; N18.5 Chronic kidney disease, stage 5; E87.4 Mixed disorder of acid-base balance; I27.2 Other secondary pulmonary hypertension; E11.21 Type 2 diabetes mellitus with diabetic nephropathy; Z68.41 Body mass index [BMI] 40.0-44.9, adult; E11.22 Type 2 diabetes mellitus with diabetic chronic kidney disease; E87.5 Hyperkalemia; I42.0 Dilated cardiomyopathy; I25.10 Atherosclerotic heart disease of native coronary artery without angina pectoris; D63.1 Anemia in chronic kidney disease; D50.9 Iron deficiency anemia, unspecified; J44.9 Chronic obstructive pulmonary disease, unspecified; R26.2 Difficulty in walking, not elsewhere classified; E78.5 Hyperlipidemia, unspecified; I34.0 Nonrheumatic mitral (valve) insufficiency; G47.33 Obstructive sleep apnea (adult) (pediatric); E66.01 Morbid (severe) obesity due to excess calories; K59.00 Constipation, unspecified; Z99.81 Dependence on supplemental oxygen; Z91.19 Patient's noncompliance with other medical treatment and regimen; Z95.5 Presence of coronary angioplasty implant and graft; Z82.49 Family history of ischemic heart disease and other diseases of the circulatory system; Z80.42 Family history of malignant neoplasm of prostate; Z80.0 Family history of malignant neoplasm of digestive organs

== ENCOUNTER 2017-03-16 06:22 | Emergency (ER) | payer MEDICARE ==
[2017-03-16 06:27] VITALS: TEMP 101.3; BMI 45.6
--- NOTE | 2017-03-16 07:51 | ED PDOC ---
Arrival/HPI - General Chief Complaint: Cardiac Arrest Time Seen by Provider: 03/16/17 07:47 Historian: EMS - History of Present Illness Narrative History of Present Illness (Text): 03/16/17 07:48 46-year-old male brought into the emergency department in cardiac arrest. History obtained from EMS and from patient's mother. Patient was last seen normal last evening. Patient's mother found him on the floor this morning, unresponsive. She states she does not know how many hours he has been down. EMS brought the patient in intubated, asystolic, after multiple rounds of epinephrine. As per paramedics, CPR has been in progress for close to 45 minutes. Past Medical History - Provider Review Nursing Documentation Reviewed: Yes - Infectious Disease Hx of Infectious Diseases: None - Tetanus Immunization Tetanus Immunization: Unknown - Cardiac Hx Cardiac Disorders: Yes Hx Hypertension: Yes - Pulmonary Hx Respiratory Disorders: Yes Hx Sleep Apnea: Yes Other/Comment: Fluid in lungs - Neurological Hx Paralysis: No - HEENT Hx HEENT Disorder: Yes (USES GLASSES) - Renal Hx Renal Failure: Yes - Endocrine/Metabolic Hx Diabetes Mellitus Type 1: Yes - Hematological/Oncological Hx Blood Transfusions: Yes (2010) Hx Blood Transfusion Reaction: No - Integumentary Hx Dermatological Disorder: No - Musculoskeletal/Rheumatological Hx Musculoskeletal Disorders: No - Gastrointestinal Hx Gastrointestinal Disorders: Yes Hx Gastroesophageal Reflux: Yes - Genitourinary/Gynecological Hx Genitourinary Disorders: No - Psychiatric Hx Emotional Abuse: No Hx Physical Abuse: No Hx Substance Use: No - Surgical History Hx Appendectomy: Yes Hx Coronary Stent: Yes - Anesthesia Hx Anesthesia Reactions: No Hx Malignant Hyperthermia: No - Suicidal Assessment Feels Threatened In Home Enviroment: No Family/Social History Family/Social History: Unknown Family HX Smoking Status: Never Smoked Hx Alcohol Use: No Hx Substance Use: No Allergies/Home Meds Allergies/Adverse Reactions: Allergies No Known Allergies Allergy (Verified 01/16/17 12:36) Home Medications: Home Meds Medication Instructions Recorded Confirmed Ferrous Sulfate [Iron] 325 mg PO QAM 08/14/16 01/16/17 Omeprazole 40 mg PO QAM 08/14/16 01/16/17 Lopid 600 mg PO BID 10/02/16 01/30/17 Losartan [Cozaar] 25 mg PO QAM 10/02/16 01/16/17 Simvastatin [Zocor] 20 mg PO QPM 10/02/16 01/30/17 Aspirin [Ecotrin] 81 mg PO QAM 11/05/16 01/30/17 Calcitriol [Rocaltrol] 0.25 mcg PO QAM 11/05/16 01/16/17 Insulin Detemir [Levemir] 43 units SC HS PRN 11/05/16 01/30/17 Magnesium Oxide [Mag-Ox] 400 mg PO QAM 11/05/16 01/16/17 Polyethylene Glycol 3350 [Miralax] 17 gm PO BID PRN 01/04/17 01/16/17 ARIPiprazole [Abilify] 5 mg PO DAILY 01/16/17 01/16/17 hydrALAZINE [Apresoline] 25 mg PO TID 01/16/17 01/16/17 Review of Systems - Review of Systems Systems not reviewed;Unavailable: Intubated Physical Exam - Physical Exam Physical Exam Limitations: Other (Intubated. Acuity of condition.) Vital Signs Temp 03/16/17 06:22 101.3 F H - Systems Exam Head: Present: Atraumatic, Normocephalic Pupils: Present: Non-Reactive Conjunctiva: Present: Injected Mouth: Present: Other (ET tube in place). No: Drooling Respiratory/Chest: Present: Other (Bilateral chest rise and fall with every BVM squeeze) Cardiovascular: Present: Other (Asystole) Abdomen: Present: Other (Distended. Large hernia.) Back: No: Midline Tenderness, Paraspinal Tenderness Neurological: Present: Other (No gag reflex) Medical Decision Making ED Course and Treatment: 03/16/17 07:53 pt seen immediately on arrival ETT placement confirmed via b/l breath sounds and absence of stomach sounds pt's down time close to 45min in the field with no shockable rhythm time of 06:24 confirmed via asystoly, no pulse, pupils fixed and dilated, no gag reflex, no cardiac activity on US pt's mother informed, consoled, all questions answered dw Dr. Lang Disposition/Present on Arrival - Present on Arrival Any Indicators Present on Arrival: No History of DVT/PE: No History of Uncontrolled Diabetes: No Urinary Catheter: No History of Decub. Ulcer: No History Surgical Site Infection Following: None - Disposition Have Diagnosis and Disposition been Completed?: Yes Diagnosis: Cardiac arrest Disposition Time: 06:24 Condition:
== END 2017-03-16 11:10 ==
LOC: ED 06:22
DX: I46.9 Cardiac arrest, cause unspecified (principal); I10 Essential (primary) hypertension; E11.9 Type 2 diabetes mellitus without complications; Z95.5 Presence of coronary angioplasty implant and graft